=== PATIENT | male | born 1965 | race Caucasian/White ===

== ENCOUNTER 2021-08-11 07:02 | Inpatient (IN) | payer MEDICAID, SELFPAY ==
[2021-08-11] VITALS (7 sets, daily range): BP systolic 97–182; BP diastolic 62–100; PULSE 62–116; RESP 16–22; TEMP 36.4–37.1; O2SAT 95–98; BMI 29.6; BMI 27.6
--- NOTE | 2021-08-11 07:18 | EDS_ITS ---
HPI History of Present Illness Chief Complaint: Substance Abuse Narrative Narrative: 55-year-old male with history of EtOH abuse presenting for detox. He states his last drink within was in the last hour or 2. Patient states he was trying to stop drinking himself but started to get the shakes. He states he can feel his blood pressure was up. He states he does not have hypertension unless he tries it with stop drinking. Patient states he took drank 2 twisted teas prior to coming in. in [place] where he is from. Patient states that his last detox was about a year ago. He has been here for 6 months. Patient admits to drinking about 1/5 to a gallon of vodka daily. He states he is never had a withdrawal seizure but does feel very bad when he does detox. He has been able to detox himself before by weaning off of alcohol. He states he has no other medical problems. No known drug allergies. Past surgical history appendectomy. Patient denies other drug use. PFSH PFSH Medical History Alcohol abuse Anxiety Bipolar disorder Depression H/O appendicitis Hepatitis Osteoarthritis Smoker Medical History no medical history Home Medications NK 08/11/21 [History Last Taken Unknown] Allergy/AdvReac Type Severity Reaction Status Date / Time No Known Allergies Allergy Verified 08/11/21 07:05 Social History Smoking Status: Current every day smoker tobacco type: cigarettes ROS ROS ED Constitutional Constitutional ED: Reports other Details: Feeling shaky ; Denies chills or fever(s) Eyes Eyes: Denies blurry vision or diplopia ENT ENT ED: Denies rhinorrhea or sore throat Cardiovascular Cardiovascular: Denies chest pain or palpitations Respiratory/Chest Respiratory/Chest: Denies cough or dyspnea Gastrointestinal Gastrointestinal: Denies abdominal pain, nausea or vomiting Genitourinary Genitourinary ED: Denies dysuria or urinary frequency Musculoskeletal Musculoskeletal: Denies arthralgias or myalgias Neurologic Neurologic: Denies headache(s) or weakness Psychiatric Psychiatric: Denies suicidal ideation or suicidal thoughts EXAM Physical Exam Const Vital Signs: 08/11/21 07:06 Temperature 97.6 F L Temperature Source Oral Pulse Rate 101 H Respiratory Rate 22 H Blood Pressure 182/100 H Blood Pressure Mean 127 Pulse Ox 98 Oxygen Delivery Method Room Air Positive well nourished General Appearance ED: NAD; Negative for pallor HEENT Reports moist mucous membranes atraumatic Eyes PERRL and EOMs intact bilaterally Resp normal respiratory effort and clear to auscultation bilaterally Cardio regular rate and regular rhythm GI soft to palpation, non-tender and non-distended Neuro oriented x3, CN's II-XII intact bilaterally and no sensory deficits noted Sensorium / Orientation: alert Psych mental status grossly normal and thought process normal Skin General Skin Exam: Negative for jaundice or pallor MDM MDM MDM Narrative Medical decision making narrative: Patient presenting for EtOH detox. He is hypertensive and tachycardic. He states he feels somewhat improved after drinking twisted teas but does want assistance with detox from alcohol. Patient given 2 mg of Ativan IV. And after discussing with the hospitalist I did give 100 mg of phenobarbital IV since he is withdrawing. CBC shows no leukocytosis. Hemoglobin is 17.2. There is no comparison. Platelets are 152. EtOH is 165. Urine drug screen is negative. CMP and lipase are pending on admission. These will be followed on the floor. Patient patient was given a nicotine patch at his request. After Ativan and phenobarbital his blood pressure has come down to 97/85. He does feel better but still feels jittery. Patient transferred in stable condition. Impression: 1 EtOH intoxication 2. EtOH abuse 3. Presentation for EtOH detox Lab Data Attestation: I reviewed the patient's lab results. Discharge Plan Disposition Disposition: Acute Care [facility] Discharge Date/Time: 08/11/21 09:48
[2021-08-11] MEDS: Phenobarbital Sodium 130 MG/ML Vial 100 MG IV (07:42)
[2021-08-11] MEDS: LORazepam 2 MG/ML Syringe IV (07:42)
[2021-08-11 07:51] LABS: Absolute Lymphocyte Count 2.52 X10^3/uL (0.83-4.51); Basophil# 0.06 X10^3/uL; Eosinophil# 0.05 X10^3/uL; Eosinophils% 0.8 % (0-5); Hematocrit 47.2 % (40-54); Hemoglobin 17.2 g/dL (13.0-16.5); Lymphocyte # 2.52 X10^3/ul (0.83-4.51); Lymphocyte % 40.5 % (19-41); Mean Corp Hgb Conc 36.4 g/dL (32-36); Mean Corpuscular Hgb 36.4 pg (27.0-32.0); Mean Platelet Vol. 10.6 fl (6.2-12.0); Monocyte# 0.56 X10^3/uL; NRBC Flagged by Analyzer 0 % (0-5); Neutrophil # 3.01 X10^3/uL (2.7-7.7); Neutrophil % 48.4 % (47-70); Platelet Count 152 K/mm3 (150-450); RBC Distribution Width CV 12.6 % (11.6-14.6); RBC Distribution Width SD 47.2 fl (35.1-43.9); Red Blood Count 4.72 M/mm3 (4.6-6.2); White Blood Count 6.2 K/mm3 (4.4-11.0)
[2021-08-11 08:01] LABS: AST(SGOT) 122 U/L (15-37); Alanine Aminotransfer ALT/SGPT 69 U/L (16-61); Albumin, Serum 3.6 g/dL (3.2-5.0); Alkaline Phosphatase 117 U/L (45-117); Anion Gap 6 (5-15); BUN 5 mg/dL (7-18); BUN/Creat Ratio 5.2 RATIO (10-20); Bilirubin, Direct 0.19 mg/dL (0.00-0.30); Calcium,Total 8.1 mg/dL (8.5-10.1); Chloride 104 mmol/L (98-107); Creatinine, Serum 0.96 mg/dL (0.70-1.30); EST Glomerular Filtration Rate 87 mL/min (>60); Est Glom Filt Rate - Afr Amer 105 mL/min (>60); Estimated Creatinine Clearance 90.83 ml/min; Globulin 4.3 g/dL (2.2-4.2); Glucose 203 mg/dL (74-106); Lipase 33 U/L (73-393); Potassium 4.5 mmol/L (3.5-5.1); Protein, Total 7.9 g/dL (6.4-8.2); Sodium Level 135 mmol/L (136-145)
[2021-08-11 08:08] LABS: Amphetamine Urine VISTA NEGATIVE (<1000 ng/mL); Barbiturate Urine VISTA NEGATIVE (< 200 ng/mL); Benzodiazepine Urine VISTA NEGATIVE (< 200 ng/mL); Cocaine Urine VISTA NEGATIVE (< 300 ng/mL); Ecstacy Urine VISTA NEGATIVE (< 500 ng/mL); Methadone Urine VISTA NEGATIVE (< 300 ng/mL); PCP Urine VISTA NEGATIVE (< 25 ng/mL); THC Urine VISTA NEGATIVE (< 50 ng/mL); Vista UDS pH Range 6
[2021-08-11] MEDS: LORazepam 2 MG/ML Syringe 1 MG IV (09:06)
[2021-08-11] MEDS: Phenobarbital 32.4 MG Tablet 64.8 MG PO ×4 (10:38→22:45)
[2021-08-11] MEDS: Thiamine Hydrochloride 100 MG Tablet PO (10:39)
[2021-08-11] MEDS: hydrOXYzine PAM 25 MG Capsule 50 MG PO ×2 (10:39→17:16)
[2021-08-11] MEDS: Ondansetron 8 MG Tablet PO (10:39)
[2021-08-11] MEDS: Dicyclomine 10 MG Capsule 20 MG PO (10:39)
[2021-08-11] MEDS: Folic Acid 1 MG Tablet PO (10:39)
--- NOTE | 2021-08-11 11:56 | ADDICTION ---
This procedure writer attempted to meet with PT. PT did not rouse to 3x verbal queuing. This worker will attempt to meet with PT at next visit on 08/12.
--- NOTE | 2021-08-11 13:03 | PCM.HP.STD ---
HPI - General General Date of Admission: 08/11/21 Date of Service: 08/11/21 Chief Complaint: Alcohol detox HPI Narrative CORY RODRIGES, is a 55 M who presented to the emergency department [facility] on 08/11/2021 requesting detox from alcohol. He states he did drink some this morning to help with his withdrawal symptoms however he would like to resume sobriety. He started drinking again about 6 months ago. He has had periodic sobriety but has been a long time on and off alcoholic. He is currently employed and recently moved here from [facility]. He reports he drinks approximately 1/5 to a gallon of vodka a day. He states he is currently has a girlfriend who is very supportive. He admits to history of hepatitis C and states he got this from previous IV drug use. He previously used IV heroin and fentanyl. He reports intermittent THC use and is a pack-a-day smoker. In the emergency department he was hypertensive and tachycardic upon presentation but otherwise his vital signs were stable. His CBC showed a erythrocytosis with a hemoglobin of 17.2. The rest of his counts were normal. His CMP was pending upon admission. His urine tox was negative except for an alcohol level of 165. In the emergency department he was given 100 mg of IV phenobarbital and request for admission was made. [facility] Medical History Alcohol abuse Anxiety Bipolar disorder Depression H/O appendicitis Hepatitis History of intravenous drug use in remission Osteoarthritis Smoker Medical History no medical history Home Medications NK 08/11/21 [History Last Taken Unknown] Allergy/AdvReac Type Severity Reaction Status Date / Time No Known Allergies Allergy Verified 08/11/21 07:05 Family History Father Throat cancer Alcoholism and drug addiction in family no surgical history Social History (Updated 08/11/21 @ 13:[address] Shala Ortega DO) current occupational status: employed current occupation: [employer] Work Smoking Status: Current every day smoker tobacco type: cigarettes Smoking packs per day: 1 Smoking cigarettes per day: 20.0 alcohol intake: current alcohol intake frequency: 3 or more drinks per day details: 1/5 to 1 gallon of vodka a day substance use type: marijuana what type of physical activity do you participate in: none ROS Constitutional Constitutional: Reports fatigue and malaise; Denies anorexia, change in weight, chills, fever(s), night sweats, weakness or other Eyes Eyes: Denies blurry vision, change in eye color, change in vision, discharge from eye(s), double vision, erythema, eye pain, loss of vision or other ENT HEENT: Denies abnormal hearing, dysphagia, ear pain, epistaxis, headache(s), hearing loss, nasal congestion, nasal discharge, post nasal drip, sinus pressure, sore throat or other Cardiovascular Cardiovascular: Denies chest pain, claudication, dyspnea on exertion, edema, lightheadedness, orthopnea, palpitations, paroxysmal nocturnal dyspnea, rapid heart rate, syncope or other Respiratory/Chest Respiratory/Chest: Denies cough, dyspnea, excessive phlegm production, hemoptysis, productive cough, shortness of breath at rest, shortness of breath with exertion, wheezing or other Gastrointestinal Gastrointestinal: Reports diarrhea, nausea and vomiting; Denies abdominal pain, coffee ground emesis, constipation, dyspepsia, hematemesis, hematochezia, loose stools, melena or other Genitourinary Genitourinary: Denies burning urination, difficulty urinating, dysuria, hematuria, nocturia, urinary frequency, urinary hesitancy, urinary incontinence, urinary urgency or other Musculoskeletal Musculoskeletal: Reports myalgias; Denies arthralgias, back pain, joint pain, joint stiffness, joint swelling, neck pain or other Neurologic Neurologic: Reports tremor(s); Denies abnormal gait, abnormal speech, confusion, disequilibrium, dizziness, focal weakness, headache(s), numbness, paresthesias, seizure-like activity, seizures, syncope, tingling or other Psychiatric Psychiatric: Reports anxiety; Denies depression, homicidal ideation, suicidal ideation or other Endocrine Endocrinology: Denies change in body appearance, cold intolerance, excessive sweating, heat intolerance, polydipsia, polyuria or other Hematologic/Lymphatic Hematologic/Lymphatic: Denies anemia, easy bleeding, easy bruising, lymphadenopathy or other Allergic/Immunologic Allergic/Immunologic: Denies rhinitis, hives, eczemia, asthma or other Vital Signs Vital Signs Vital Signs: 08/11/21 07:06 08/11/21 09:09 08/11/21 09:36 Temperature 97.6 F L 97.6 F L Temperature Source Oral Oral Pulse Rate 101 H 104 H 104 H Respiratory Rate 22 H 16 16 Blood Pressure 182/100 H 97/85 H 97/85 H Blood Pressure Mean 127 89 89 Blood Pressure Source Blood Pressure Position Blood Pressure Location Pulse Ox 98 98 98 Oxygen Delivery Method Room Air Room Air Room Air 08/11/21 10:10 Temperature 98.2 F Temperature Source Oral Pulse Rate 88 Respiratory Rate 16 Blood Pressure 113/64 Blood Pressure Mean 80 Blood Pressure Source Monitor Blood Pressure Position Semi-Fowlers Blood Pressure Location Left Arm Pulse Ox 98 Oxygen Delivery Method Room Air Weight Weight: 87.453 kg Body Mass Index (BMI) 27.6 Physical Exam Const alert, oriented x3, no apparent distress, healthy appearing and well nourished Constitutional Narrative: Slightly overweight 55-year-old white male, sitting up in bed, nontoxic-appearing, no current signs of overt withdrawal however he has been dosed with phenobarbital General Appearance: cooperative HEENT normocephalic, head/scalp atraumatic, hearing grossly normal bilaterally and moist oral mucous membranes HEENT Narrative: Dentition is fair for age, Mallampati is 2, no thrush Resp normal respiratory effort, no retractions, no use of accessory muscles and clear to auscultation bilaterally Resp Narrative: Diffusely diminished but otherwise clear Auscultation: Negative for crackles, rales, rhonchi or wheezes Cardio regular rhythm, S1 normal heart sound, S2 normal heart sound, no murmurs, no rub, no gallops, no clicks and no JVD Cardio Narrative: Mild tachycardia GI normal to inspection, nondistended, normoactive bowel sounds, soft to palpation, non-tender, non-distended and hepatosplenomegaly Extremity no clubbing, cyanosis or edema Peripheral Pulses: Yes pulses 2+ throughout Neuro oriented x3, CN's II-XII intact bilaterally, moves all extremities and no focal motor deficits Neuro Narrative: Mild fine tremor noted on exam Sensorium / Orientation: awake and alert Speech: speech normal Motor Exam: strength 5/5 throughout Psych affect normal Psych Narrative: Very pleasant Results Lab / Micro Data Result Diagrams: 08/11/21 07:34 08/11/21 07:34 Labs: Laboratory Results - last 24 hr 08/11/21 07:34: WBC 6.2, RBC 4.72, Hgb 17.2 H, Hct 47.2, MCV 100.0 H, MCH 36.4 H, MCHC 36.4 H, RDW Std Deviation 47.2 H, RDW Coeff of Shekhar 12.6, Plt Count 152, MPV 10.6, Immature Gran % (Auto) 0.300, Neut % (Auto) 48.4, Lymph % (Auto) 40.5, [place] % (Auto) 9.0, Eos % (Auto) 0.8, Baso % (Auto) 1.0, Absolute Neuts (auto) 3.0, Absolute Lymphs (auto) 2.52, Nucleated RBC % 0 08/11/21 07:34: Ethyl Alcohol 165.0 08/11/21 07:34: Urine Opiates Screen Cancelled, Urine Methadone Screen Cancelled, Ur Barbiturates Screen Cancelled, Ur Phencyclidine Scrn Cancelled, Ur Amphetamines Screen Cancelled, U Methamphetamin-MDMA Cancelled, U Benzodiazepines Scrn Cancelled, Urine Cocaine Screen Cancelled, U Cannabinoids Screen Cancelled, Ur Drug Screen Comment Cancelled 08/11/21 07:47: Urine Opiates Screen NEGATIVE, Urine Methadone Screen NEGATIVE, Ur Barbiturates Screen NEGATIVE, Ur Phencyclidine Scrn NEGATIVE, Ur Amphetamines Screen NEGATIVE, U Methamphetamin-MDMA NEGATIVE, U Benzodiazepines Scrn NEGATIVE, Urine Cocaine Screen NEGATIVE, U Cannabinoids Screen NEGATIVE, Ur Drug Screen Comment Assessment & Plan Assessment/Plan (1) Alcohol withdrawal: (2) Erythrocytosis: PLAN: Acute alcohol withdrawal -Patient drinks 1/5 1 gallon of vodka daily -Last drink was a few hours before presentation -Alcohol on admission was 165 -Start phenobarbital taper -Start thiamine and folate -Supportive medications for symptom management -180 consultation Erythrocytosis -Suspect multifactorial with chronic tobacco abuse plus likely some dehydration -No reason to reevaluate History of hepatitis C -Resulted from IV drug use -Would like to be treated once he is sober -I did discuss with him a referral to Dr. Mendieta after discharge and he was amenable to this Tobacco abuse -Currently smokes approximately 1 pack of cigarettes daily -Continue patch available -Recommend cessation History of polysubstance abuse -IVDU with fentanyl and heroin remotely -Patient has not used since the early 1999 Intermittent THC use -Recommend cessation DVT prophylaxis -Low risk -Early ambulation CODE STATUS -Full code Charges/Coding Visit Charges Inpatient E&M: 93956 Init Hosp L2
[2021-08-11] MEDS: Gabapentin 300 MG Capsule PO (14:59)
[2021-08-11] MEDS: LORazepam 1 MG Tablet 2 MG PO (18:26)
[2021-08-12] MEDS: Phenobarbital 32.4 MG Tablet 64.8 MG PO ×6 (02:19→22:45)
[2021-08-12 04:43] VITALS: BP 112/86; PULSE 82; RESP 16; TEMP 36.6; O2SAT 99
[2021-08-12 05:33] LABS: Absolute Lymphocyte Count 2.26 X10^3/uL (0.83-4.51); Absolute Neutrophil Count 1.7 X10^3/uL (2.0-7.7); Basophil# 0.05 X10^3/uL; Eosinophil# 0.25 X10^3/uL; Eosinophils% 5.1 % (0-5); Hematocrit 43.6 % (40-54); Hemoglobin 15.4 g/dL (13.0-16.5); Lymphocyte # 2.26 X10^3/ul (0.83-4.51); Lymphocyte % 46.5 % (19-41); Mean Corp Hgb Conc 35.3 g/dL (32-36); Mean Corpuscular Hgb 34.9 pg (27.0-32.0); Mean Corpuscular Volume 98.9 fL (80-94); Mean Platelet Vol. 10.9 fl (6.2-12.0); Monocyte# 0.63 X10^3/uL; NRBC Flagged by Analyzer 0 % (0-5); Neutrophil # 1.66 X10^3/uL (2.7-7.7); Neutrophil % 34.2 % (47-70); Platelet Count 117 K/mm3 (150-450); RBC Distribution Width CV 12.3 % (11.6-14.6); RBC Distribution Width SD 44.9 fl (35.1-43.9); Red Blood Count 4.41 M/mm3 (4.6-6.2); White Blood Count 4.9 K/mm3 (4.4-11.0)
[2021-08-12 05:58] LABS: ALB/GLOB Ratio 0.8 RATIO (0.9-2.4); AST(SGOT) 71 U/L (15-37); Alanine Aminotransfer ALT/SGPT 53 U/L (16-61); Alkaline Phosphatase 108 U/L (45-117); Anion Gap 3 (5-15); BUN 9 mg/dL (7-18); BUN/Creat Ratio 10.6 RATIO (10-20); Calcium,Total 8.1 mg/dL (8.5-10.1); Chloride 105 mmol/L (98-107); Creatinine, Serum 0.85 mg/dL (0.70-1.30); EST Glomerular Filtration Rate 100 mL/min (>60); Est Glom Filt Rate - Afr Amer 121 mL/min (>60); Estimated Creatinine Clearance 102.58 ml/min; Globulin 3.9 g/dL (2.2-4.2); Glucose 100 mg/dL (74-106); Potassium 3.8 mmol/L (3.5-5.1); Protein, Total 6.9 g/dL (6.4-8.2); Sodium Level 137 mmol/L (136-145)
[2021-08-12 10:00] VITALS: BP 132/80; PULSE 80; RESP 20; TEMP 36.8
[2021-08-12] MEDS: Thiamine Hydrochloride 100 MG Tablet PO (10:31)
[2021-08-12] MEDS: Folic Acid 1 MG Tablet PO (10:31)
[2021-08-12 10:47] VITALS: BP 132/80; PULSE 80; RESP 20; TEMP 36.8; O2SAT 98
--- NOTE | 2021-08-12 12:01 | PN.HOSP_ITS ---
Subjective Subjective Feels better today. He is concerned about his hospitalization and returning to work. States he does not have any insurance. Objective Data Objective Data Vital Signs: Vital Signs Temp Pulse Resp BP Pulse Ox 36.8 C 80 20 H 132/80 H 98 08/12/21 10:47 08/12/21 10:47 08/12/21 10:47 08/12/21 10:47 08/12/21 10:47 Oxygen Delivery Method Room Air Weight: 87.453 kg Body Mass Index (BMI) 27.6 Intake & Output: Intake and Output for Last 24 Hours 08/10/21 08/11/21 08/12/21 23:59 23:59 23:59 Intake Total 850 / 1150 500 / 500 Balance 850 / 1150 500 / 500 Medical Nutrition Assessment Dietitian: Malnutrition Criteria Met Start: 08/11/21 15:34 Freq: Status: Active Protocol: Document 08/11/21 15:34 ALLEN (Rec: 08/11/21 15:34 ALLEN [id number]) Nutrition Malnutrition Evidence of Malnutrition Exists Yes Malnutrition (severe): Social/Behavioral/ Environmental Evidenced By Suboptimal Energy Intake ( Severe),Weight Loss (Severe) Clinical Problem Chronic Disease or Condition Related Malnutrition Etiology related to alcohol abuse and tends to drink my meals whereby pt not consuming adequate nutrition to meet est needs Signs/Symptoms as evidenced by <50% po intake of meals (drinking alcohol instead) x 3 mo and 12.6% wt loss x 6 mo Status Active Problem Recommendation Dietitian Recommendations/Changes Will continue regular diet Will continue ensure enlive w/ medpass 4x/day Lab / Micro Data Result Diagrams: 08/12/21 05:12 08/12/21 05:12 Labs: Laboratory Results - last 24 hr 08/12/21 05:12: WBC 4.9, RBC 4.41 L, Hgb 15.4, Hct 43.6, MCV 98.9 H, MCH 34.9 H, MCHC 35.3, RDW Std Deviation 44.9 H, RDW Coeff of Shekhar 12.3, Plt Count 117 L, MPV 10.9, Immature Gran % (Auto) 0.200, Neut % (Auto) 34.2 L, Lymph % (Auto) 46.5 H, [place] % (Auto) 13.0 H, Eos % (Auto) 5.1 H, Baso % (Auto) 1.0, Absolute Neuts (auto) 1.7 L, Absolute Lymphs (auto) 2.26, Nucleated RBC % 0 08/12/21 05:12: Sodium 137, Potassium 3.8, Chloride 105, Carbon Dioxide 29.0, Anion Gap 3 L, BUN 9, Creatinine 0.85, Estim Creat Clear Calc 102.58, Est GFR (MDRD) Af Amer 121, Est GFR (MDRD) Non-Af 100, BUN/Creatinine Ratio 10.6, Glucose 100, Calcium 8.1 L, Phosphorus 2.0 L, Magnesium 2.0, Total Bilirubin 1.30 H, AST 71 H, ALT 53, Alkaline Phosphatase 108, Total Protein 6.9, Albumin 3.0 L, Globulin 3.9, Albumin/Globulin Ratio 0.8 L Physical Exam Const alert and no apparent distress Psych affect normal Assessment & Plan Assessment/Plan (1) Alcohol withdrawal: QUALIFIERS: Complication of substance-induced condition: uncomplicated Qualified Code(s): F10.230 - Alcohol dependence with withdrawal, uncomplicated PLAN: 1. Acute alcohol withdrawal Patient drinks 1/5 of liquor per day. Subjective feels better still states that he has a bit of a tremor. Had conversation with him that the purpose of him being in the hospital is to get over the acute alcohol withdrawal so that he can follow-up outpatient with 180. I encouraged him to stay another day but told him that he does appear stable now and that it would be reasonable for him to be discharged but I could not guarantee that he would not have issues with alcohol withdrawal upon discharge. We both agreed to reevaluate this tomorrow and if he is continue to feel better than he would be discharged. He states that he would need some for work and I told him that which is basically include dates of his admission and when he could return home to work with him providing additional details. Charges/Coding Visit Charges Inpatient E&M: 77497 Subs Hosp L1
[2021-08-12] MEDS: hydrOXYzine PAM 25 MG Capsule 50 MG PO (13:33)
--- NOTE | 2021-08-12 14:29 | ADDICTION ---
This technical report writer met with PT to conduct ASAM, MSE, AUDIT assessments and to plan for d/c. PT A+Ox4 and participated actively. All assessments completed and placed in PT's chart. PT plans to f/u with individual counselor at [facility] for follow-up counseling services. PT did not indicate a need for transportation post d/c from [facility].
[2021-08-12 14:41] VITALS: BP 130/82; PULSE 88; RESP 16; TEMP 36.5; O2SAT 97
[2021-08-12] MEDS: traZODone 100 MG Tablet PO (19:46)
[2021-08-12 22:41] VITALS: BP 101/73; PULSE 73; RESP 16; TEMP 36.6; O2SAT 94
[2021-08-13] MEDS: Phenobarbital 32.4 MG Tablet 64.8 MG PO ×2 (03:09→10:04)
[2021-08-13 08:26] VITALS: BP 133/81; PULSE 72; RESP 16; TEMP 36.6; O2SAT 98
[2021-08-13] MEDS: Thiamine Hydrochloride 100 MG Tablet PO (08:37)
[2021-08-13] MEDS: Folic Acid 1 MG Tablet PO (08:37)
--- NOTE | 2021-08-13 09:09 | PCM.DC ---
Discharge Instructions Diet Discharge Diet: No restrictions Activity Discharge Activity: Return to Normal Activity Follow Up Care Please Follow Up With: Lee When: Call to set up follow up appointment. Test Results: Test results from this visit will be discussed in further detail at your follow-up appointment, if applicable. Discharge Plan Admission Admit Date/Time: 08/11/21 07:26 Primary Reason for Your Visit: alcohol withdrawal Attending Provider: Bryan Da Silva Primary Care Provider: Care Physician,Cha Primary Discharge Orders/Prescriptions Prescriptions: New multivitamin Tablet 1 tab PO DAILY Qty: 30 RF: 0 Referrals / Follow Up: Care Physician,No Primary [Primary Care Provider] - Disposition Disposition (needs filled in before D/C Order can be placed): Home, Self Care
--- NOTE | 2021-08-13 09:10 | PCM.DC.SUM ---
Providers Date of Admission: 08/11/21 Primary Care Physician: No Primary Care Phys Reason For Visit: ACUTE ETOH WITHDRAWAL/DETOX Diagnosis Discharge Diagnosis (1) Alcohol withdrawal: Status: Acute Code(s): F10.239 - Alcohol dependence with withdrawal, unspecified Qualifiers: Complication of substance-induced condition: uncomplicated Qualified Code(s): F10.230 - Alcohol dependence with withdrawal, uncomplicated Medications at Discharge Home Medications multivitamin 1 tab PO DAILY #30 tab 08/13/21 Hospital Course Operations None Procedures None Summary of Care Provided Minutes Spent on Discharge: 24 Hospital Course: This is a 55-year-old male presenting for treatment for acute alcohol withdrawal. Patient was started on phenobarbital. His course was uncomplicated. Patient on the fifth was overall feeling better but still having some tremulousness. He was concerned because he does not have any medical insurance. Had a lengthy conversation with him saying that we could watch him another day which I encouraged to work he could be discharged though I told him that I would not know how he would fair if he were to be discharged. So we both agree that he would stay today. Patient evaluated today and is overall feeling better and he will be discharged. Patient given information to contact [facility] to help with his outpatient addiction treatment. Physical Exam Const alert and no apparent distress Psych affect normal Medical Records Data Medical Nutrition Assessment Dietitian: Malnutrition Criteria Met Start: 08/11/21 15:34 Freq: Status: Active Protocol: Document 08/11/21 15:34 ALLEN (Rec: 08/11/21 15:34 ALLEN [id number]) Nutrition Malnutrition Evidence of Malnutrition Exists Yes Malnutrition (severe): Social/Behavioral/ Environmental Evidenced By Suboptimal Energy Intake ( Severe),Weight Loss (Severe) Clinical Problem Chronic Disease or Condition Related Malnutrition Etiology related to alcohol abuse and tends to drink my meals whereby pt not consuming adequate nutrition to meet est needs Signs/Symptoms as evidenced by <50% po intake of meals (drinking alcohol instead) x 3 mo and 12.6% wt loss x 6 mo Status Active Problem Recommendation Dietitian Recommendations/Changes Will continue regular diet Will continue ensure enlive w/ medpass 4x/day Weight / BMI Weight Weight: 87.453 kg Body Mass Index (BMI) 27.6 ABG / Lab / Microbiology Data Result Diagrams: 08/12/21 05:12 08/12/21 05:12 D/C Instructions Discharge Diet: No restrictions Please Follow Up With: Lee When: Call to set up follow up appointment. Meaningful Use Info Meaningful Use Diagnoses (Choose all that apply): None applicable Discharge Plan Admission Admit Date/Time: 08/11/21 07:26 Primary Reason for Your Visit: alcohol withdrawal Attending Provider: Bryan Da Silva Primary Care Provider: Care Physician,No Primary Discharge Orders/Prescriptions Prescriptions: New multivitamin Tablet 1 tab PO DAILY Qty: 30 RF: 0 Referrals / Follow Up: Care Physician,No Primary [Primary Care Provider] - Disposition Disposition (needs filled in before D/C Order can be placed): Home, Self Care Charges/Coding Visit Charges Inpatient E&M: 34737 Disch Hosp
== END 2021-08-13 10:55 | disposition home or self-care (01) | DRG 897 ==
LOC: ED 07:23 → MS3 09:20
PROVIDERS: Admitting Provider Internal Medicine; Emergency Provider Student in an Organized Health Care Education/Training Program
DX: F10.230 Alcohol dependence with withdrawal, uncomplicated (principal); E44.1 Mild protein-calorie malnutrition; F12.99 Cannabis use, unspecified with unspecified cannabis-induced disorder; B19.20 Unspecified viral hepatitis C without hepatic coma; D75.1 Secondary polycythemia; F17.210 Nicotine dependence, cigarettes, uncomplicated; E66.3 Overweight; Y90.6 Blood alcohol level of 120-199 mg/100 ml; Z68.27 Body mass index [BMI] 27.0-27.9, adult; Z81.1 Family history of alcohol abuse and dependence
CPT/HCPCS: 36415; 80048; 80053; 80076; 80307; 82077; 83690; 83735; 84100; 85025; 97802; 99251; 99283; 99406; A4216; G0463

== ENCOUNTER 2021-09-05 05:45 | Inpatient (IN) | payer MEDICAID, SELFPAY ==
[2021-09-05] VITALS (7 sets, daily range): BP systolic 118–148; BP diastolic 74–99; PULSE 63–92; RESP 16–19; TEMP 36.6–37.2; O2SAT 96–100; BMI 30.3; BMI 28.3
--- NOTE | 2021-09-05 05:57 | EX.ED.SAOD ---
HPI History of Present Illness Chief Complaint: Substance Abuse Detail of Chief Complaint: Requesting detox from alcohol Informant: patient Narrative Narrative: Patient presents requesting alcohol detox. Patient was admitted to the hospital earlier this month for similar. He states he did not contact [facility] when he left the hospital because he felt they wanted him to do inpatient treatment and he was concerned about losing his job. He states he started drinking after couple days. He does currently have an appointment to meet with [facility] this coming Saturday. They recommended coming back in for acute detox. Patient drinks 5th-1/2 gallon of vodka a day. Last drink was on his way to the hospital. Patient states he was trying to drink to stop the shakes. PFSH PFS Medical History Alcohol abuse Anxiety Bipolar disorder Depression H/O appendicitis Hepatitis History of intravenous drug use in remission Osteoarthritis Smoker Home Medications NK 09/05/21 [History Last Taken Unknown] Allergy/AdvReac Type Severity Reaction Status Date / Time No Known Allergies Allergy Verified 09/05/21 05:49 Family History Father Throat cancer Alcoholism and drug addiction in family Social History current occupational status: employed current occupation: Factory Work Smoking Status: Current every day smoker tobacco type: cigarettes alcohol intake: current alcohol intake frequency: 3 or more drinks per day details: 1/5 to 1 gallon of vodka a day substance use type: marijuana what type of physical activity do you participate in: none ROS ROS ED Constitutional Constitutional ED: Denies chills or fever(s) Eyes Eyes: Denies blurry vision or change in vision ENT ENT ED: Denies rhinorrhea or sore throat Cardiovascular Cardiovascular: Denies chest pain Respiratory/Chest Respiratory/Chest: Denies cough or dyspnea Gastrointestinal Gastrointestinal: Denies abdominal pain, diarrhea or vomiting Integumentary Denies rash Neurologic Neurologic: Denies paresthesias or weakness Psychiatric Psychiatric: Reports anxiety Allergic/Immunologic Allergic/Immunologic ED: Denies urticaria EXAM Physical Exam Const Vital Signs: 09/05/21 05:46 Temperature 98.9 F Temperature Source Oral Pulse Rate 91 Respiratory Rate 17 Blood Pressure 148/99 H Blood Pressure Mean 115 Pulse Ox 99 Oxygen Delivery Method Room Air Positive well nourished and well developed General Appearance ED: well developed HEENT Reports moist mucous membranes Eyes PERRL and EOMs intact bilaterally Neck supple Chest Wall inspection of chest normal and palpation of chest normal Resp normal respiratory effort and clear to auscultation bilaterally Cardio regular rate and regular rhythm GI soft to palpation and non-tender Neuro oriented x3 and no sensory deficits noted Sensorium / Orientation: alert Motor Exam: strength 5/5 throughout Psych mental status grossly normal Skin Lesions: no lesions Rashes: no rashes MDM MDM MDM Narrative Medical decision making narrative: Lab work for as he feels that he is shaky and did well with this on his last admission. I spoke with the hospitalist will see the patient for admission. Lab Data Labs: Laboratory Results - last 24 hr 09/05/21 06:00 WBC 6.6 RBC 4.67 Hgb 17.0 H Hct 47.3 MCV 101.3 H MCH 36.4 H MCHC 35.9 RDW Std Deviation 48.1 H RDW Coeff of Shekhar 12.8 Plt Count 168 MPV 10.0 Immature Gran % (Auto) 0.300 Neut % (Auto) 32.6 L Lymph % (Auto) 53.8 H [place] % (Auto) 9.0 Eos % (Auto) 3.2 Baso % (Auto) 1.1 H Absolute Neuts (auto) 2.1 Absolute Lymphs (auto) 3.53 Nucleated RBC % 0 Discharge Plan Triage Chief Complaint: Substance Abuse ED Provider: Monique Cruz Dx/Rx/DC Orders Clinical Impression: Desire for detoxification, Alcohol abuse Prescriptions: No Action NK RF: 0 Primary Care Provider: Care Physician,No Primary Referrals: Care Physician,No Primary [Primary Care Provider] - Disposition Disposition: Acute Care Hospital [facility]
[2021-09-05 06:05] LABS: Absolute Lymphocyte Count 3.53 X10^3/uL (0.83-4.51); Absolute Neutrophil Count 2.1 X10^3/uL (2.0-7.7); Basophil# 0.07 X10^3/uL; Basophil% 1.1 % (0-1); Eosinophil# 0.21 X10^3/uL; Eosinophils% 3.2 % (0-5); Hematocrit 47.3 % (40-54); Lymphocyte # 3.53 X10^3/ul (0.83-4.51); Lymphocyte % 53.8 % (19-41); Mean Corp Hgb Conc 35.9 g/dL (32-36); Mean Corpuscular Hgb 36.4 pg (27.0-32.0); Mean Corpuscular Volume 101.3 fL (80-94); Monocyte# 0.59 X10^3/uL; NRBC Flagged by Analyzer 0 % (0-5); Neutrophil # 2.14 X10^3/uL (2.7-7.7); Neutrophil % 32.6 % (47-70); Platelet Count 168 K/mm3 (150-450); RBC Distribution Width CV 12.8 % (11.6-14.6); RBC Distribution Width SD 48.1 fl (35.1-43.9); Red Blood Count 4.67 M/mm3 (4.6-6.2); White Blood Count 6.6 K/mm3 (4.4-11.0)
--- NOTE | 2021-09-05 06:09 | HP.PCM.HOS_ITS ---
HPI - General General Date of Admission: 09/05/21 HPI Narrative CORY RODRIGES, is a 55 M with a significant history of bipolar disorder hepatitis C; and alcoholism who presents to emergency department for alcohol detoxification. Patient drinks about a fifth to a half a gallon of vodka daily. He reported he has been drinking almost all his life. To prevent tremors last time he drank was about 20-day before presentation. At that time he drank a can of twisted tea. He reports withdrawal symptoms of tremors and nausea. Of note patient was discharged from the hospital on 08/13/2021 for acute detoxification. He was supposed to go for inpatient treatment after discharge. However, because of financial issues he could not go. He report that prior to coming in on this presentation (09/05/2021) he contacted [facility] and he has a follow-up appointment (with [facility]) at 1 PM on Saturday, September 08, 2021. This time around he is hoping to go to inpatient alcohol rehabilitation program after discharge. PFS Medical History Alcohol abuse Anxiety Bipolar disorder Depression H/O appendicitis Hepatitis History of intravenous drug use in remission Osteoarthritis Smoker Home Medications NK 09/05/21 [History Last Taken Unknown] Allergy/AdvReac Type Severity Reaction Status Date / Time No Known Allergies Allergy Verified 09/05/21 05:49 Family History Father Throat cancer Alcoholism and drug addiction in family Social History current occupational status: employed current occupation: Factory Work Smoking Status: Current every day smoker tobacco type: cigarettes alcohol intake: current alcohol intake frequency: 3 or more drinks per day details: 1/5 to 1 gallon of vodka a day substance use type: marijuana what type of physical activity do you participate in: none ROS ROS Narrative Constitutional: Denies fever, chills, fatigue, anorexia and change in weight Eyes: Denies blurry vision, change in eye color, change in vision, discharge from eye(s), double vision, erythema, eye pain, loss of vision or other HEENT: Denies abnormal hearing, dysphagia, ear pain, epistaxis, headache(s), hearing loss, nasal congestion, nasal discharge, post nasal drip, sinus pressure, sore throat or other Cardiovascular: Denies chest pain or palpitations. Denies dyspnea on exertion, orthopnea and paroxysmal nocturnal dyspnea Respiratory/Chest: Denies cough, excessive phlegm production, shortness of breath with exertion and wheezing Gastrointestinal: Reports nausea. Denies abdominal pain, coffee ground emesis, constipation, diarrhea, dyspepsia, hematemesis, hematochezia, loose stools, melena, or other Genitourinary: Denies burning urination, difficulty urinating, dysuria, hematuria, nocturia, urinary frequency, urinary hesitancy, urinary incontinence, urinary urgency or other Musculoskeletal: Denies arthralgias, back pain, joint pain, joint stiffness, joint swelling, myalgias, neck pain or other Neurologic: Report tremors. Denies abnormal gait, abnormal speech, confusion, d isequilibrium, dizziness, focal weakness, headache(s), numbness, paresthesias, seizure-like activity, seizures, syncope, tingling, or other Psychiatric: Denies anxiety, depression, homicidal ideation, suicidal ideation or other Endocrinology: Denies change in body appearance, cold intolerance, excessive sweating, heat intolerance, polydipsia, polyuria or other Hematologic/Lymphatic: Denies anemia, easy bleeding, easy bruising, lymphadenopathy or other Integumentary: Denies rashes Allergic/Immunologic: Denies rhinitis, hives, eczema, or other Vital Signs Vital Signs Vital Signs: 09/05/21 05:46 Temperature 98.9 F Temperature Source Oral Pulse Rate 91 Respiratory Rate 17 Blood Pressure 148/99 H Blood Pressure Mean 115 Pulse Ox 99 Oxygen Delivery Method Room Air Weight Weight: 95.9 kg Body Mass Index (BMI) 30.3 Physical Exam Narrative Physical exam: General: Well-nourished, well-developed. Head: Normocephalic, atraumatic, no tenderness Eyes: Vision is grossly intact. EOMI ENT, no trauma, moist mucous membranes, no rhinorrhea Neck: Nontender, full range of motion, no spinal tenderness, deformities, step- off CVS: Regular rate and rhythm. S1-S2 present. No murmur, gallop or rub. Respiratory : clear to auscultation bilaterally, chest wall nontender, no wheezing Abdomen: Soft, nontender, nondistended, normal bowel sounds, no masses : Deferred Back: Nontender, no CVA tenderness, no midline spinal tenderness, deformities, step-offs Extremities: Nontender full range of motion, no trauma Skin: Normal color, no trauma, abrasions Neuro: Alert, oriented, cranial nerves II through XII grossly intact. Asterixis present Psychiatry: Normal mood. Normal affect. Not depressed. Not anxious. Results Lab / Micro Data Result Diagrams: 09/05/21 06:00 09/05/21 06:00 Labs: Laboratory Results - last 24 hr 09/05/21 06:00: WBC 6.6, RBC 4.67, Hgb 17.0 H, Hct 47.3, MCV 101.3 H, MCH 36.4 H , MCHC 35.9, RDW Std Deviation 48.1 H, RDW Coeff of Shekhar 12.8, Plt Count 168, MPV 10.0, Immature Gran % (Auto) 0.300, Neut % (Auto) 32.6 L, Lymph % (Auto) 53.8 H, [place] % (Auto) 9.0, Eos % (Auto) 3.2, Baso % (Auto) 1.1 H, Absolute Neuts (auto) 2.1, Absolute Lymphs (auto) 3.53, Nucleated RBC % 0 Assessment & Plan Assessment/Plan (1) Desire for detoxification: (2) Tobacco abuse: (3) Cannabis abuse: PLAN: Alcohol dependence and desire for detoxification Records reviewed from previous admission: Patient was admitted on 08/11/2021 and discharged on 08/13/2021. Patient did well on phenobarbital taper Patient will be started on phenobarbital and other adjunctive medications: Gabapentin as needed; dicyclomine as needed; Vistaril as needed; Imodium as needed; trazodone as needed; Zofran as needed; scheduled thiamine; and schedule folic acid. Monitor CIWA score Elevated blood pressure diagnosis of hypertension. Likely secondary to withdrawal symptoms. Supportive treatment as above. Trend blood pressures. Leukocytosis Hemoglobin of 17.0. Likely secondary to tobacco abuse. No further work-up needed. Tobacco abuse Counseled Nicotine patch prescribed. Marijuana abuse Last time used was about a month ago. Counseled. DVT prophylaxis Low risk Encourage to ambulate Charges/Coding Visit Charges Inpatient E&M: 67554 Init Hosp L2
[2021-09-05 06:21] LABS: ALB/GLOB Ratio 0.8 RATIO (0.9-2.4); AST(SGOT) 95 U/L (15-37); Alanine Aminotransfer ALT/SGPT 67 U/L (16-61); Albumin, Serum 3.4 g/dL (3.2-5.0); Alkaline Phosphatase 95 U/L (45-117); Anion Gap 7 (5-15); BUN 4 mg/dL (7-18); BUN/Creat Ratio 4.4 RATIO (10-20); Calcium,Total 8.1 mg/dL (8.5-10.1); Chloride 107 mmol/L (98-107); Creatinine, Serum 0.92 mg/dL (0.70-1.30); EST Glomerular Filtration Rate 91 mL/min (>60); Est Glom Filt Rate - Afr Amer 111 mL/min (>60); Estimated Creatinine Clearance 94.78 ml/min; Glucose 166 mg/dL (74-106); Potassium 3.9 mmol/L (3.5-5.1); Protein, Total 7.4 g/dL (6.4-8.2); Sodium Level 140 mmol/L (136-145)
[2021-09-05] MEDS: Phenobarbital 32.4 MG Tablet 97.2 MG PO (06:36)
[2021-09-05 06:41] LABS: Amphetamine Urine VISTA NEGATIVE (<1000 ng/mL); Barbiturate Urine VISTA POSITIVE (< 200 ng/mL); Benzodiazepine Urine VISTA NEGATIVE (< 200 ng/mL); Cocaine Urine VISTA NEGATIVE (< 300 ng/mL); Ecstacy Urine VISTA NEGATIVE (< 500 ng/mL); Methadone Urine VISTA NEGATIVE (< 300 ng/mL); PCP Urine VISTA NEGATIVE (< 25 ng/mL); THC Urine VISTA NEGATIVE (< 50 ng/mL); Vista UDS pH Range 7
[2021-09-05] MEDS: Phenobarbital 32.4 MG Tablet 64.8 MG PO ×4 (08:05→20:10)
[2021-09-05] MEDS: Folic Acid 1 MG Tablet PO (08:05)
[2021-09-05] MEDS: 0.9% Saline Lock 10 ML Syringe IV (08:06)
[2021-09-05] MEDS: Thiamine Hydrochloride 100 MG Tablet PO (09:31)
[2021-09-05] MEDS: Ondansetron 8 MG Tablet PO ×2 (11:46→20:10)
[2021-09-05] MEDS: Dicyclomine 10 MG Capsule 20 MG PO (13:06)
--- NOTE | 2021-09-05 14:04 | PCM.HOSP.N ---
Hospitalist Note Mr. Weir is a 55-year-old male who presented to the emergency department early this morning requesting alcohol detox. Upon admission he reported drinking 1/5 to half a gallon of vodka a day. He did have a recent admission for acute detoxification was supposed to go to inpatient treatment following discharge but was unable to go secondary to financial issues. He reported on admission that prior to coming in at this admission he had contacted [facility] and arrange for a follow-up appointment at 1 PM on September 08. He is hoping to be able to be admitted to an inpatient alcohol rehabilitation after discharge at some point. He does have a history of bipolar disorder and hepatitis C. He is currently on phenobarbital taper along with supportive medications and remained stable at this time.
--- NOTE | 2021-09-05 17:14 | NURSING ---
Pt gave permission for staff to update and provide information to his gege Olivo.
[2021-09-05] MEDS: traZODone 100 MG Tablet PO (21:23)
[2021-09-06] VITALS: BP 124/79; PULSE 70; RESP 18; TEMP 36.6; O2SAT 96
[2021-09-06] MEDS: Phenobarbital 32.4 MG Tablet 64.8 MG PO ×7 (00:06→23:42)
[2021-09-06 04:00] VITALS: BP 125/74; PULSE 68; RESP 18; TEMP 36.6; O2SAT 94
[2021-09-06 08:00] VITALS: BP 98/86; PULSE 76; RESP 18; TEMP 36.6; O2SAT 98
[2021-09-06] MEDS: Folic Acid 1 MG Tablet PO (08:08)
[2021-09-06] MEDS: Thiamine Hydrochloride 100 MG Tablet PO (08:08)
[2021-09-06 13:40] VITALS: BP 111/64; PULSE 77; RESP 18; TEMP 37; O2SAT 97
--- NOTE | 2021-09-06 13:53 | PCM.PN.HOSP ---
Subjective Subjective Patient states he is feeling much better today. His symptoms of withdrawal have improved dramatically. He is still reporting some nausea and diarrhea. He would like to try to go tomorrow if possible. I did tell him we would reevaluate his symptoms tomorrow and make more decisions at that time. He is agreeable. Objective Data Objective Data Vital Signs: Vital Signs Temp Pulse Resp BP Pulse Ox 98.6 F 77 18 111/64 97 09/06/21 13:40 09/06/21 13:40 09/06/21 13:40 09/06/21 13:40 09/06/21 13:40 Oxygen Flow Rate (L/min) 98 Oxygen Delivery Method Room Air Weight: 89.6 kg Body Mass Index (BMI) 28.3 Intake & Output: Intake and Output for Last 24 Hours 09/04/21 09/05/21 09/06/21 23:59 23:59 23:59 Intake Total 1300 / 1300 600 / 600 Balance 1300 / 1300 600 / 600 Lab / Micro Data Result Diagrams: 09/05/21 06:00 09/05/21 06:00 Physical Exam Const alert, oriented x3 and no apparent distress Constitutional Narrative: Overweight upper middle-aged white male who appears older than stated age, lying in bed, appears comfortable nontoxic, room is dark Exam Limitations: no limitations Nutritional Appearance: overweight HEENT head/scalp atraumatic and moist oral mucous membranes HEENT Narrative: Dentition is poor, Mallampati is 2, no thrush Head and Scalp: normocephalic Resp normal respiratory effort, no retractions, no use of accessory muscles and clear to auscultation bilaterally Resp Narrative: Diffusely diminished but clear Auscultation: Negative for crackles, rales, rhonchi or wheezes Cardio regular rate, regular rhythm, S1 normal heart sound, S2 normal heart sound, no murmurs, no rub, no gallops, no clicks and no JVD GI normal to inspection, nondistended, normoactive bowel sounds, soft to palpation, non-tender and non-distended Extremity no clubbing, cyanosis or edema Peripheral Pulses: Yes pulses 2+ throughout Neuro oriented x3, moves all extremities and no focal motor deficits Sensorium / Orientation: awake and alert Speech: speech normal Assessment & Plan Assessment/Plan (1) Alcohol abuse: (2) Alcohol withdrawal: (3) Desire for detoxification: PLAN: Acute alcohol withdrawal -Patient with recent detox in early August however secondary to financial issues could not get in the inpatient program and started drinking again -Drinks about 1/5 to a gallon of vodka a day -Indicates has been drinking almost all of his life -Tox screen positive for alcohol with a blood alcohol level of 209.0 and barbiturates which is consistent with his most recent detox admission -Continue phenobarbital taper -Continue thiamine and folate -Continue supportive medications -Patient clinically is improved dramatically and is hoping to be discharged tomorrow -Patient has follow-up at [facility] at 1 PM on Wednesday, September 08, 2021 at which time he is planning to be able to be admitted into an inpatient alcohol rehabilitation program History of hepatitis C -Resulted from IV drug use -Would like to be treated once he is sober -I did discuss with him a referral to Dr. Mendieta after discharge and he was amenable to this Tobacco abuse -Currently smokes approximately 1 pack of cigarettes daily -Continue patch available -Recommend cessation History of polysubstance abuse -IVDU with fentanyl and heroin remotely -Patient has not used since the early 1999 Intermittent THC use -Recommend cessation -Last use was reported approximately 1 month ago DVT prophylaxis -Low risk -Early ambulation CODE STATUS -Full code Charges/Coding Visit Charges Inpatient E&M: 24377 Subs Hosp L2
--- NOTE | 2021-09-06 14:03 | CASEMGMT ---
PAULINO called Ananda [facility] hvac specialist to make sure she was aware of patient. Ananda was not aware of patient and will see him tomorrow am. Alicia Curiel [employer] [facility]
--- NOTE | 2021-09-06 18:46 | NURSING ---
Reviewed charting with Sarbjit Beck RN
[2021-09-06 20:00] VITALS: BP 123/71; PULSE 75; RESP 16; TEMP 36.7; O2SAT 98
[2021-09-06] MEDS: traZODone 100 MG Tablet PO (21:31)
[2021-09-06 23:40] VITALS: BP 106/67; PULSE 64; RESP 18; TEMP 36.4; O2SAT 96
[2021-09-07] MEDS: Phenobarbital 32.4 MG Tablet 64.8 MG PO ×3 (03:27→11:13)
[2021-09-07 03:42] VITALS: BP 101/69; PULSE 71; RESP 16; TEMP 36.6; O2SAT 97
[2021-09-07 07:54] VITALS: BP 100/77; PULSE 80; RESP 18; TEMP 36.6; O2SAT 97
[2021-09-07] MEDS: Folic Acid 1 MG Tablet PO (07:59)
[2021-09-07] MEDS: Thiamine Hydrochloride 100 MG Tablet PO (07:59)
--- NOTE | 2021-09-07 10:14 | PCM.DC.SUM ---
Providers Date of Admission: 09/05/21 Date of Discharge: 09/07/21 Primary Care Physician: No Primary Care Phys Reason For Visit: DESIRE FOR ALCOHOL DETOXIFICATION Diagnosis Discharge Diagnosis (1) Alcohol abuse: Status: Acute Code(s): F10.10 - Alcohol abuse, uncomplicated (2) Alcohol withdrawal: Status: Acute Code(s): F10.239 - Alcohol dependence with withdrawal, unspecified (3) Desire for detoxification: Status: Acute Medications at Discharge Home Medications NK 09/05/21 Hospital Course Operations None Procedures None Summary of Care Provided Minutes Spent on Discharge: 25 Hospital Course: Mr. Weir is a 55-year-old male who presented to the emergency department at [facility] on 09/05/2021 with request for alcohol detoxification. The patient admitted to drinking approximately 1/5 to a gallon of vodka a day. He reported he had been drinking for almost all of his life. He admitted that his last drink was just prior to coming in to avoid tremor. And he had a can of twisted tea at that time. He was reporting tremors and nausea upon presentation. He did have a recent admission from 08/11/2021 to 08/13/2021 for alcohol detoxification and he was supposed to go for inpatient treatment after discharge however because of financial issues he could not go at that time. He reported on admission at this admission that he called [facility] prior to presentation and has a follow-up appointment with them at 1 PM on 06/29/2021. He is still hoping that he will be able to manage inpatient alcohol rehabilitation program but this is somewhat questionable secondary to finances. He realizes the importance of maintaining sobriety and his overall health. He was admitted to the medical unit and started on a phenobarbital taper along with thiamine and folate as well as supportive medications. His detoxification was overall uneventful and by the a.m. of 09/07/2021 he reported feeling extremely well and desired to go home. Given the fact he was not having any quick acute withdrawal symptoms and had not required any as needed medications he was discharged home in stable condition on the a.m. of 09/07/2021 with instructions to follow-up on Saturday, September 08, 2021 at [facility] as previously recommended. Discharge diagnoses: Acute alcohol withdrawal History of hepatitis C Tobacco abuse Intermittent THC use History of polysubstance abuse Physical Exam Const alert, oriented x3 and no apparent distress Constitutional Narrative: Overweight upper middle-aged white male who appears older than stated age, lying in bed, appears comfortable nontoxic, room is dark, watching television General Appearance: cooperative, comfortable, well kempt and well developed Orientation / Consciousness: awake Exam Limitations: no limitations Nutritional Appearance: overweight HEENT normocephalic, head/scalp atraumatic and moist oral mucous membranes HEENT Narrative: Mallampati is 2, no thrush Resp normal respiratory effort, no retractions, no use of accessory muscles and clear to auscultation bilaterally Resp Narrative: Diffusely diminished but clear Auscultation: Negative for crackles, rales, rhonchi or wheezes Cardio regular rate, regular rhythm, S1 normal heart sound, S2 normal heart sound, no murmurs, no rub, no gallops, no clicks and no JVD GI normal to inspection, nondistended, normoactive bowel sounds, soft to palpation, non-tender and non-distended Extremity no clubbing, cyanosis or edema Extremity Narrative: 2+ pedal pulses Skin no jaundice Neuro oriented x3, CN's II-XII intact bilaterally, moves all extremities and no focal motor deficits Sensorium / Orientation: awake and alert Speech: speech normal Weight / BMI Weight Weight: 89.6 kg Body Mass Index (BMI) 28.3 ABG / Lab / Microbiology Data Result Diagrams: 09/05/21 06:00 09/05/21 06:00 D/C Instructions Discharge Diet: No restrictions Discharge Activity: Return to Normal Activity Return to work on: 09/08/21 Meaningful Use Info Meaningful Use Diagnoses (Choose all that apply): None applicable Discharge Plan Admission Admit Date/Time: 09/05/21 06:06 Primary Reason for Your Visit: Acute alcohol withdrawal Attending Provider: Shala Ortega Primary Care Provider: Care Physician,No Primary Instructions Additional Instructions / Restrictions: 1. Follow-up with [facility] on September 08, 2021 at 1 PM Discharge Orders/Prescriptions Prescriptions: No Action NK RF: 0 Referrals / Follow Up: Care Physician,No Primary [Primary Care Provider] - Disposition Disposition (needs filled in before D/C Order can be placed): Home, Self Care Charges/Coding Visit Charges Inpatient E&M: 76501 Disch Hosp
--- NOTE | 2021-09-07 11:55 | CASEMGMT ---
Social Work Pt is ready for discharge and requesting to leave. SW met with pt to discuss need to stay until Addiction Therapist meets with pt which will be in approximately 45 minutes. Pt stating that he has an appointment with Doylearya tomorrow at 1pm to finish his intake and work out his financials. Pt stating the plan is for the IOP program over Zoom through [facility]. SW explained that pt does need to meet with Addiction Therapist even if he does have a plan. RN updated that addiction therapist will be here within the hour. JIAN Chris
--- NOTE | 2021-09-07 12:35 | ADDICTION ---
This junior copywriter met with PT to conduct ASAM, MSE, AUDIT assessments and to plan for d/c. PT A+Ox4 and participated actively. All assessments completed, and placed in PT's chart. PT plans to f/u with individual counselor at [facility] for follow-up counseling services. PT did not indicate a need for transportation post d/c from [facility].
--- NOTE | 2021-09-07 12:36 | NURSING ---
Reviewed charting with Sarbjit Beck RN
== END 2021-09-07 12:31 | disposition home or self-care (01) | DRG 775 ==
LOC: ED 06:24 → PCU 06:28
PROVIDERS: Admitting Provider Hospitalist; Emergency Provider Emergency Medicine; Visit Provider Internal Medicine
DX: F10.239 Alcohol dependence with withdrawal, unspecified (principal); F31.9 Bipolar disorder, unspecified; E66.3 Overweight; F12.10 Cannabis abuse, uncomplicated; F17.210 Nicotine dependence, cigarettes, uncomplicated; I10 Essential (primary) hypertension; Y90.7 Blood alcohol level of 200-239 mg/100 ml; Z68.28 Body mass index [BMI] 28.0-28.9, adult; Z86.19 Personal history of other infectious and parasitic diseases; Z81.1 Family history of alcohol abuse and dependence
CPT/HCPCS: 80053; 80307; 82077; 85025; 99284; 99406; A4216

== ENCOUNTER 2021-09-17 12:09 | Inpatient (IN) | payer MEDICAID, SELFPAY ==
[2021-09-17 12:10] VITALS: BP 102/75; PULSE 117; RESP 17; TEMP 36.9; O2SAT 94; BMI 28.2
--- NOTE | 2021-09-17 12:25 | EDS_ITS ---
HPI History of Present Illness Chief Complaint: Substance Abuse Detail of Chief Complaint: Requesting detox from alcohol Informant: patient Narrative Narrative: Patient presents to the emergency department requesting detox from alcohol. Patient states that he was last here about 3 weeks ago for same. Patient states that he has been in contact with 180 and he brought his garment bag with him as he is willing to go to residential treatment after inpatient stay in the hospital. Patient wants to get things right. His last drink was about 45 minutes ago. Patient normally drinks about 1/5 of vodka daily. Patient's had some intermittent nausea and vomiting. Denies abdominal pain. He denies fevers or recent illness. Patient has history of hep C as well as history of anxiety and depression. He denies feeling suicidal or homicidal. Prior similar symptoms: Yes [facility] Medical History (Updated 09/17/21 @ 13:[address] Ange Howe, DO) Alcohol abuse Alcohol abuse Anxiety Bipolar disorder Cannabis abuse Depression H/O appendicitis Hepatitis History of intravenous drug use in remission Osteoarthritis Smoker Tobacco abuse Home Medications NK 09/05/21 [History Last Taken Unknown] Allergy/AdvReac Type Severity Reaction Status Date / Time No Known Allergies Allergy Verified 09/17/21 12:10 Family History Father Throat cancer Alcoholism and drug addiction in family Social History current occupational status: employed current occupation: Factory Work Smoking Status: Current every day smoker tobacco type: cigarettes alcohol intake: current alcohol intake frequency: 3 or more drinks per day details: 1/5 to 1 gallon of vodka a day substance use type: marijuana what type of physical activity do you participate in: none ROS ROS ED Constitutional Constitutional ED: Reports systems reviewed and no addt'l complaints, except as documented; Denies body ache(s), change in weight or chills Eyes Eyes: Denies acute decrease in peripheral vision, change in vision, double vision or loss of vision ENT ENT ED: Reports none; Denies ear pain, lip swelling, loss taste/smell, neck pain, otalgia or sore throat Cardiovascular Cardiovascular: Reports none; Denies abdominal pain, chest pain with activity, leg edema, lightheadedness, palpitations, rapid heart rate or syncope Respiratory/Chest Respiratory/Chest: Reports none; Denies change in mental status, dry cough, dyspnea, hemoptysis, shortness of breath at rest or shortness of breath with exertion Gastrointestinal Gastrointestinal: Reports none, nausea and vomiting; Denies abdominal pain, change in stool character, diarrhea, hematemesis, hematochezia, melena or rectal bleeding Genitourinary Genitourinary ED: Reports none; Denies abdominal discomfort, anuria, dysuria, genital pain or polyuria Musculoskeletal Musculoskeletal: Reports none; Denies arthralgias, back pain, difficulty walking, extremity pain, muscle weakness or myalgias Integumentary Reports none; Denies abscess or rash Neurologic Neurologic: Reports none; Denies abnormal gait, confusion, focal weakness, frequent falls, headache(s), loss of vision, numbness, paresthesias, radicular pain, vertigo or weakness Psychiatric Psychiatric: Reports systems reviewed and no addt'l complaints, except as documented and none; Denies behavioral changes, confusion, difficulty concentrating, hallucinations, suicidal ideation, tactile hallucinations or visual hallucinations Endocrine Endocrinology: Denies none, cold intolerance, excessive sweating, fatigue or heat intolerance Hematologic/Lymphatic Hematologic/Lymphatic: Reports none; Denies anemia, easy bleeding or easy bruising Allergic/Immunologic Allergic/Immunologic ED: Denies as per HPI, none, lip swelling, mouth swelling, throat swelling, tongue swelling or hives EXAM Physical Exam Const Vital Signs: 09/17/21 12:10 Temperature 98.4 F Temperature Source Temporal Pulse Rate 117 H Respiratory Rate 17 Blood Pressure 102/75 Blood Pressure Mean 84 Pulse Ox 94 Oxygen Delivery Method Room Air Positive well nourished and well developed General Appearance ED: well developed and NAD HEENT Reports TM's clear and moist mucous membranes normocephalic and atraumatic; Negative for trauma or tenderness Tympanic Membrane ED: Yes TM's clear Eyes PERRL and EOMs intact bilaterally General Eye ED: Negative for pale conjunctiva or scleral icterus Neck no lymphadenopathy, supple and no JVD General: Negative for tenderness Chest Wall inspection of chest normal and palpation of chest normal Chest: Negative for tenderness Resp normal respiratory effort and clear to auscultation bilaterally Effort and Inspection: Negative for respiratory distress or pain with movement Auscultation: Negative for rhonchi, wheezes or diminished lung sounds Cardio regular rate, regular rhythm, S1 normal heart sound, S2 normal heart sound and no murmurs Peripheral Pulses: pulses 2+ throughout GI normal to inspection, nondistended, normoactive bowel sounds, soft to palpation, non-tender, non-distended and no masses Back/Spine no CVA tenderness and no thoracic nor lumbar tenderness Extremity normal to inspection General Extremety ED: Negative for edema General Extremity: Negative for edema Neuro oriented x3, CN's II-XII intact bilaterally, no sensory deficits noted and gait normal Sensorium / Orientation: awake, alert, oriented to person, oriented to place and oriented to time Motor Exam: strength 5/5 throughout and strength abnormal Psych mental status grossly normal Skin no rashes or lesions noted and no wounds MDM MDM MDM Narrative Medical decision making narrative: IV line established on arrival. Patient was given normal saline and Zofran 4 mg IV. Case will be discussed with hospitalist evaluate patient for admission for diagnosis of alcohol abuse and request for detox Lab Data Attestation: I reviewed the patient's lab results. Labs: Laboratory Results - last 24 hr 09/17/21 09/17/21 09/17/21 12:35 12:35 12:50 WBC 10.5 RBC 4.82 Hgb 17.0 H Hct 48.6 MCV 100.8 H MCH 35.3 H MCHC 35.0 RDW Std Deviation 46.1 H RDW Coeff of Shekhar 12.1 Plt Count 230 MPV 10.1 Immature Gran % (Auto) 0.200 Neut % (Auto) 48.3 Lymph % (Auto) 40.1 Delta % (Auto) 8.8 Eos % (Auto) 1.6 Baso % (Auto) 1.0 Absolute Neuts (auto) 5.1 Absolute Lymphs (auto) 4.21 Nucleated RBC % 0 Sodium 139 Potassium 4.1 Chloride 107 Carbon Dioxide 23.0 Anion Gap 9 BUN 4 L Creatinine 0.95 Estim Creat Clear Calc 91.78 Est GFR (MDRD) Af Amer 106 Est GFR (MDRD) Non-Af 88 BUN/Creatinine Ratio 4.2 L Glucose 105 Calcium 8.5 Total Bilirubin 0.70 AST 87 H ALT 69 H Alkaline Phosphatase 91 Total Protein 7.9 Albumin 3.6 Globulin 4.3 H Albumin/Globulin Ratio 0.8 L Lipase 64 L Ur Drug Screen Comment Discharge Plan Triage Chief Complaint: Substance Abuse ED Provider: Ange Howe Dx/Rx/DC Orders Clinical Impression: ETOH abuse, Desire for detoxification Prescriptions: No Action NK RF: 0 Primary Care Provider: Care Physician,No Primary Referrals: Care Physician,No Primary [Primary Care Provider] - Disposition Disposition: Acute Care Hospital [facility]
[2021-09-17] MEDS: 0.9% Normal Saline 1,000 ML 150 ML IV (12:35)
[2021-09-17] MEDS: Ondansetron 4 MG/2 ML Vial IV ×2 (12:35→21:40)
[2021-09-17 12:44] LABS: Absolute Lymphocyte Count 4.21 X10^3/uL (0.83-4.51); Absolute Neutrophil Count 5.1 X10^3/uL (2.0-7.7); Eosinophil# 0.17 X10^3/uL; Eosinophils% 1.6 % (0-5); Hematocrit 48.6 % (40-54); Lymphocyte # 4.21 X10^3/ul (0.83-4.51); Lymphocyte % 40.1 % (19-41); Mean Corpuscular Hgb 35.3 pg (27.0-32.0); Mean Corpuscular Volume 100.8 fL (80-94); Mean Platelet Vol. 10.1 fl (6.2-12.0); Monocyte# 0.92 X10^3/uL; Monocyte% 8.8 % (0-10); NRBC Flagged by Analyzer 0 % (0-5); Neutrophil # 5.08 X10^3/uL (2.7-7.7); Neutrophil % 48.3 % (47-70); Platelet Count 230 K/mm3 (150-450); RBC Distribution Width CV 12.1 % (11.6-14.6); RBC Distribution Width SD 46.1 fl (35.1-43.9); Red Blood Count 4.82 M/mm3 (4.6-6.2); White Blood Count 10.5 K/mm3 (4.4-11.0)
[2021-09-17 13:02] LABS: ALB/GLOB Ratio 0.8 RATIO (0.9-2.4); AST(SGOT) 87 U/L (15-37); Alanine Aminotransfer ALT/SGPT 69 U/L (16-61); Albumin, Serum 3.6 g/dL (3.2-5.0); Alkaline Phosphatase 91 U/L (45-117); Anion Gap 9 (5-15); BUN 4 mg/dL (7-18); BUN/Creat Ratio 4.2 RATIO (10-20); Calcium,Total 8.5 mg/dL (8.5-10.1); Chloride 107 mmol/L (98-107); Creatinine, Serum 0.95 mg/dL (0.70-1.30); EST Glomerular Filtration Rate 88 mL/min (>60); Est Glom Filt Rate - Afr Amer 106 mL/min (>60); Estimated Creatinine Clearance 91.78 ml/min; Globulin 4.3 g/dL (2.2-4.2); Glucose 105 mg/dL (74-106); Lipase 64 U/L (73-393); Potassium 4.1 mmol/L (3.5-5.1); Protein, Total 7.9 g/dL (6.4-8.2); Sodium Level 139 mmol/L (136-145)
[2021-09-17 13:22] LABS: Amphetamine Urine VISTA NEGATIVE (<1000 ng/mL); Barbiturate Urine VISTA POSITIVE (< 200 ng/mL); Benzodiazepine Urine VISTA NEGATIVE (< 200 ng/mL); Cocaine Urine VISTA POSITIVE (< 300 ng/mL); Ecstacy Urine VISTA NEGATIVE (< 500 ng/mL); Methadone Urine VISTA NEGATIVE (< 300 ng/mL); PCP Urine VISTA NEGATIVE (< 25 ng/mL); THC Urine VISTA NEGATIVE (< 50 ng/mL); Vista UDS pH Range 7
--- NOTE | 2021-09-17 13:24 | PCM.HP.STD ---
[facility] - General General Date of Admission: 09/17/21 Date of Service: 09/17/21 Chief Complaint: Acute alcohol withdrawal syndrome. Shaking, nausea and vomiting HPI Narrative CORY RODRIGES, is a 55 M with history of chronic alcohol use disorder and past opioid use disorder came to ER with shaking, tremors, nausea and vomiting and diarrhea. Patient states his last drink of alcohol was about 12 noon today. Patient drinks 1/5 to half gallon of vodka every day since age of 17. Patient having tremors, flushing, dehydrated, nausea and vomiting and diarrhea. He is having loose watery bowel movement for long time. He states his diarrhea is chronic for 5 to 6 years unclear whether related to alcohol withdrawal. Initially patient had few dry heaving and then bilious vomiting. Denies active GI bleed including hematemesis, hematochezia or melena. He had once, hematemesis in the past. Denies ascites or cirrhosis. In the past he has disorder and is currently hepatitis C. He also recently snorted cocaine few days ago. He denies current opioid use IV or oral or snorting, methamphetamine, bath salts or ecstasy. He smokes cigarettes half pack to 1 pack daily In the ED, is tachycardic but blood pressure 102/25 on lower side. Patient is further admitted. [facility] Medical History Alcohol abuse Alcohol abuse Anxiety Bipolar disorder Cannabis abuse Depression H/O appendicitis Hepatitis History of intravenous drug use in remission Osteoarthritis Smoker Tobacco abuse Home Medications NK 09/05/21 [History Last Taken Unknown] Allergy/AdvReac Type Severity Reaction Status Date / Time No Known Allergies Allergy Verified 09/17/21 12:10 Family History Father Throat cancer Alcoholism and drug addiction in family Social History current occupational status: employed current occupation: Factory Work Smoking Status: Current every day smoker tobacco type: cigarettes alcohol intake: current alcohol intake frequency: 3 or more drinks per day details: 1/5 to 1 gallon of vodka a day substance use type: marijuana what type of physical activity do you participate in: none ROS ROS Narrative Constitutional: Generalized shaking and tremors. HEENT: Chronic tinnitus unclear which ear. He states he has for long time. Never been evaluated by ENT or physician. Denies loss of hearing left ear. Hearing. Reports systems reviewed and no addt'l complaints, except as documented. Respiratory/Chest: Denies chest pain, shortness of breath at rest or with exertion Gastrointestinal: As mentioned in HPI Genitourinary: Denies burning urination or new urinary tract symptoms Musculoskeletal: Denies joint pain and limited range of motion Neurologic: Denies seizure-like activity. No focal neurological symptoms Psychiatric: Denies hallucinations or delusion. No suicidal ideation or attempt skin: No ulcer. No rash Endocrinology: Reports systems reviewed and no addt'l complaints, except as documented Hematologic/Lymphatic: Reports systems reviewed and no addt'l complaints, except as documented Rest 14 ROS are negative except as mentioned in HPI Vital Signs Vital Signs Vital Signs: 09/17/21 12:10 Temperature 98.4 F Temperature Source Temporal Pulse Rate 117 H Respiratory Rate 17 Blood Pressure 102/75 Blood Pressure Mean 84 Pulse Ox 94 Oxygen Delivery Method Room Air Weight Weight: 196 lb 10.437 oz Body Mass Index (BMI) 28.2 Physical Exam Narrative General: Alert, Oriented x3, Cooperative HEENT: Atraumatic, PERRLA, EOMI, Normocephalic Oral: Dry oral mucosa. No Gingival or Mucosal Lesions/ Ulcerations Neck: Supple, No JVD, Negative Carotid Bruits Lungs: Air entry diminished in bilateral lung bases. No crepitation/rhonchi Cardiovascular: Sinus tachycardia, Normal S1, Normal S2, No murmurs Abdomen: Bowel Sounds Present, Soft, mild tenderness over right subcostal region. Right subcostal liver edge palpable. Liver dullness starts at sixth ICS in midclavicular line. Spleen not palpable : No renal angle tenderness. No suprapubic tenderness. Extremities: Tremors in both hands. No edema, Capillary Refill Less than 3 Seconds Skin: Dry and flushed skin. Musculoskeletal: No Tenderness to Palpation of Joints or Extremities. Range of motion intact Neurological: Cranial nerves II-XII grossly intact, DTR 2+/4 and Symmetrical, Neuro grossly intact Psych/Mental Status: Anxious, restless. No delusion/hallucination. Results Lab / Micro Data Result Diagrams: 09/17/21 12:35 09/17/21 12:35 Labs: Laboratory Results - last 24 hr 09/17/21 12:35: WBC 10.5, RBC 4.82, Hgb 17.0 H, Hct 48.6, MCV 100.8 H, MCH 35.3 H, MCHC 35.0, RDW Std Deviation 46.1 H, RDW Coeff of Shekhar 12.1, Plt Count 230, MPV 10.1, Immature Gran % (Auto) 0.200, Neut % (Auto) 48.3, Lymph % (Auto) 40.1, Rose[place] % (Auto) 8.8, Eos % (Auto) 1.6, Baso % (Auto) 1.0, Absolute Neuts (auto) 5.1, Absolute Lymphs (auto) 4.21, Nucleated RBC % 0 09/17/21 12:35: Sodium 139, Potassium 4.1, Chloride 107, Carbon Dioxide 23.0, Anion Gap 9, BUN 4 L, Creatinine 0.95, Estim Creat Clear Calc 91.78, Est GFR (MDRD) Af Amer 106, Est GFR (MDRD) Non-Af 88, BUN/Creatinine Ratio 4.2 L, Glucose 105, Calcium 8.5, Total Bilirubin 0.70, AST 87 H, ALT 69 H, Alkaline Phosphatase 91, Total Protein 7.9, Albumin 3.6, Globulin 4.3 H, Albumin/Globulin Ratio 0.8 L, Lipase 64 L 09/17/21 12:35: Ethyl Alcohol 100.0 09/17/21 12:50: Urine Opiates Screen NEGATIVE, Urine Methadone Screen NEGATIVE, Ur Barbiturates Screen POSITIVE H, Ur Phencyclidine Scrn NEGATIVE, Ur Amphetamines Screen NEGATIVE, MDMA (Ecstasy) Screen NEGATIVE, U Benzodiazepines Scrn NEGATIVE, Urine Cocaine Screen POSITIVE H, U Cannabinoids Screen NEGATIVE, Ur Drug Screen Comment Assessment & Plan Assessment/Plan (1) Alcohol withdrawal delirium, acute, hyperactive: PLAN: 1. Acute alcohol withdrawal syndrome with history of chronic alcohol use and dependence: Patient is being admitted to [facility] floor. IV fluid Ringer lactate. Labs reviewed. H&H , hemoconcentrated. His baseline hemoglobin is 15.4. RBCs macrocytic. Serum sodium, potassium, chloride and bicarb normal. Anion gap 9. BUN 4. Creatinine 0.95 2. Dehydration with hemoconcentration: IV fluid as mentioned above. Serum magnesium and phosphorus ordered. 3. Acute on chronic alcoholic hepatitis: Patient had right upper quadrant tenderness. Liver edge palpable. Patient AST ALT has been elevated in the past since first lab on August 12, 2021. AST 87, ALT 69. Total bili alk phos normal. A/G ratio 0.8. Lipase low 64. 4. History of chronic opioid use in the past and chronic hepatitis C: Patient has never been treated. U tox positive for barbiturates, cocaine. Patient states he uses marijuana but cannabinoids negative. In the past he had used oral and IV fentanyl and heroin but quit 3 years ago 5. Cigarette smoking/chronic nicotine use: Nicotine abuse ordered VTE prophylaxis moderate risk, Lovenox 40 mg subcu daily. Discontinue if platelet count drops less than 50,000 or hemoglobin less than 8 g%. Living will/advanced directive/end of life care: Patient does not have living will or advanced directive. After discussion of benefits/risks procedures involved with full code, DNR CC arrest and DNR CC, the patient opted for full code. This will be further discussed in PCP office. Patient does want artificial life support including intubation, tube feed, ventilator and/chest compression, central venous catheter, vasopressor and DC shock if needed Total time spent in [id number] encounter in discussion of advanced directive 16 minutes. Charges/Coding Visit Charges Inpatient E&M: 74161 Init Hosp L3 Procedures Hospitalists Procedures: 19460 Advncd Care Plan 30 Min
[2021-09-17 13:26] VITALS: BP 106/68; PULSE 86; RESP 16; TEMP 36.9; O2SAT 95
[2021-09-17 13:54] LABS: International Normalized Ratio 1.1; Prothrombin Time (Protime)PT. 13.6 SECONDS (11.7-14.9)
[2021-09-17 13:55] VITALS: BMI 27.8
[2021-09-17 13:56] VITALS: BP 103/74; PULSE 81; RESP 16; TEMP 36.7; O2SAT 96
[2021-09-17 13:59] LABS: Magnesium 1.8 mg/dL (1.6-2.6); Phosphorus 1.5 mg/dL (2.5-4.9)
[2021-09-17] MEDS: Lactated Ringers 1,000 ML 125 ML IV (14:21)
[2021-09-17 17:57] VITALS: BP 123/74; PULSE 16; PULSE 79; RESP 16; TEMP 37.1; O2SAT 99
[2021-09-17] MEDS: Phenobarbital 32.4 MG Tablet 64.8 MG PO ×2 (18:01→21:40)
[2021-09-17] MEDS: Thiamine Hydrochloride 100 MG Tablet PO (18:01)
[2021-09-17 20:06] VITALS: BP 104/70; PULSE 82; RESP 18; TEMP 37; O2SAT 94
[2021-09-17] MEDS: traZODone 100 MG Tablet PO (21:39)
[2021-09-17] MEDS: 0.9% Saline Lock 10 ML Syringe IV (21:40)
[2021-09-18 02:53] VITALS: BP 103/75; PULSE 61; RESP 16; TEMP 36.4; O2SAT 96
[2021-09-18] MEDS: Phenobarbital 32.4 MG Tablet 64.8 MG PO ×6 (02:58→22:38)
[2021-09-18 06:00] VITALS: BP 105/65; PULSE 55; RESP 16; TEMP 36.6; O2SAT 97
[2021-09-18] MEDS: Lactated Ringers 1,000 ML 125 ML IV (06:10)
[2021-09-18 06:54] LABS: ALB/GLOB Ratio 0.9 RATIO (0.9-2.4); AST(SGOT) 55 U/L (15-37); Alanine Aminotransfer ALT/SGPT 53 U/L (16-61); Albumin, Serum 2.9 g/dL (3.2-5.0); Alkaline Phosphatase 79 U/L (45-117); BUN 6 mg/dL (7-18); BUN/Creat Ratio 7.2 RATIO (10-20); Calcium,Total 7.7 mg/dL (8.5-10.1); Chloride 108 mmol/L (98-107); Creatinine, Serum 0.84 mg/dL (0.70-1.30); EST Glomerular Filtration Rate 101 mL/min (>60); Est Glom Filt Rate - Afr Amer 122 mL/min (>60); Globulin 3.3 g/dL (2.2-4.2); Glucose 90 mg/dL (74-106); Magnesium 1.7 mg/dL (1.6-2.6); Phosphorus 2.9 mg/dL (2.5-4.9); Protein, Total 6.2 g/dL (6.4-8.2); Sodium Level 139 mmol/L (136-145)
[2021-09-18 06:55] LABS: Anion Gap 3 (5-15)
[2021-09-18 08:36] VITALS: BP 119/78; PULSE 61; RESP 18; TEMP 36.6; O2SAT 98
[2021-09-18] MEDS: Enoxaparin 40 MG/0.4 ML Syringe SC (08:45)
[2021-09-18] MEDS: Thiamine Hydrochloride 100 MG Tablet PO (08:46)
[2021-09-18] MEDS: Gabapentin 300 MG Capsule PO (08:46)
[2021-09-18] MEDS: Loperamide 2 MG Capsule PO (08:46)
[2021-09-18] MEDS: Folic Acid 1 MG Tablet PO (08:46)
[2021-09-18] MEDS: Dicyclomine 10 MG Capsule 20 MG PO (08:46)
[2021-09-18] MEDS: hydrOXYzine PAM 25 MG Capsule 50 MG PO ×3 (10:21→22:38)
[2021-09-18 10:27] VITALS: BP 121/77; PULSE 60; RESP 18; TEMP 36.7; O2SAT 98
--- NOTE | 2021-09-18 11:36 | ADDICTION ---
This communications writer met with PT to conduct ASAM, MSE, AUDIT assessments and to plan for d/c. PT A+Ox4 and participated actively. All assessments completed and placed in PT's chart. PT plans to f/u with [facility] for follow-up in-patient treatment services at [facility]. [facility] will provide transportation post d/c from [facility].
--- NOTE | 2021-09-18 12:39 | PCM.PN.HOSP ---
Subjective Subjective Patient indicates he was not sober for very long after his last detox 2 weeks ago. He states that now he realizes he needs inpatient treatment and is willing to do so. He states overall he is feeling okay today. Objective Data Objective Data Vital Signs: Vital Signs Temp Pulse Resp BP Pulse Ox 98.0 F 60 18 121/77 H 98 09/18/21 10:27 09/18/21 10:27 09/18/21 10:27 09/18/21 10:27 09/18/21 10:27 Oxygen Delivery Method Room Air Weight: 88.2 kg Body Mass Index (BMI) 27.8 Intake & Output: Intake and Output for Last 24 Hours 09/16/21 09/17/21 09/18/21 23:59 23:59 23:59 Intake Total 1800 / 1800 1159.1633 / 1159.1633 Balance 1800 / 1800 1159.1633 / 1159.1633 Medical Nutrition Assessment Dietitian: Malnutrition Criteria Met Start: 09/18/21 11:37 Freq: Status: Active Protocol: Document 09/18/21 11:38 ALLEN (Rec: 09/18/21 11:38 [facility] [id number]) Nutrition Malnutrition Evidence of Malnutrition Exists Yes Malnutrition (severe): Social/Behavioral/ Environmental Evidenced By Suboptimal Energy Intake ( Severe),Weight Loss (Severe), Physical Changes (Mild) Clinical Problem Acute Disease or Injury Related Malnutrition Etiology related to alcohol abuse drinking 1/5 vodka per day x 2 months and not eating adequately to meet est nutritional needs Signs/Symptoms as evidenced by <50% po intake and 15.7% wt loss x 2-3 mo, also with fat/muscle loss in face/upper body. Status Active Problem Recommendation Dietitian Recommendations/Changes Will continue diet as ordered Will order ensure enlive 4x/ day w/ medpass (pt prefers strawberry) Will continue to monitor for changes in pt nutritional status Lab / Micro Data Result Diagrams: 09/17/21 12:35 09/18/21 05:58 Labs: Laboratory Results - last 24 hr 09/17/21 12:35: WBC 10.5, RBC 4.82, Hgb 17.0 H, Hct 48.6, MCV 100.8 H, MCH 35.3 H, MCHC 35.0, RDW Std Deviation 46.1 H, RDW Coeff of Shekhar 12.1, Plt Count 230, MPV 10.1, Immature Gran % (Auto) 0.200, Neut % (Auto) 48.3, Lymph % (Auto) 40.1, [place] % (Auto) 8.8, Eos % (Auto) 1.6, Baso % (Auto) 1.0, Absolute Neuts (auto) 5.1, Absolute Lymphs (auto) 4.21, Nucleated RBC % 0 09/17/21 12:35: Sodium 139, Potassium 4.1, Chloride 107, Carbon Dioxide 23.0, Anion Gap 9, BUN 4 L, Creatinine 0.95, Estim Creat Clear Calc 91.78, Est GFR (MDRD) Af Amer 106, Est GFR (MDRD) Non-Af 88, BUN/Creatinine Ratio 4.2 L, Glucose 105, Calcium 8.5, Total Bilirubin 0.70, AST 87 H, ALT 69 H, Alkaline Phosphatase 91, Total Protein 7.9, Albumin 3.6, Globulin 4.3 H, Albumin/Globulin Ratio 0.8 L, Lipase 64 L 09/17/21 12:35: Ethyl Alcohol 100.0 09/17/21 12:41: Phosphorus 1.5 L, Magnesium 1.8 09/17/21 12:50: Urine Opiates Screen NEGATIVE, Urine Methadone Screen NEGATIVE, Ur Barbiturates Screen POSITIVE H, Ur Phencyclidine Scrn NEGATIVE, Ur Amphetamines Screen NEGATIVE, MDMA (Ecstasy) Screen NEGATIVE, U Benzodiazepines Scrn NEGATIVE, Urine Cocaine Screen POSITIVE H, U Cannabinoids Screen NEGATIVE, Ur Drug Screen Comment 09/17/21 13:23: PT Cancelled, INR Cancelled 09/17/21 13:39: PT 13.6, INR 1.1 09/18/21 05:58: Sodium 139, Potassium 4.0, Chloride 108 H, Carbon Dioxide 28.0, Anion Gap 3 L, BUN 6 L, Creatinine 0.84, Estim Creat Clear Calc 103.80, Est GFR (MDRD) Af Amer 122, Est GFR (MDRD) Non-Af 101, BUN/Creatinine Ratio 7.2 L, Glucose 90, Calcium 7.7 L, Phosphorus 2.9, Magnesium 1.7, Total Bilirubin 0.90, AST 55 H, ALT 53, Alkaline Phosphatase 79, Total Protein 6.2 L, Albumin 2.9 L, Globulin 3.3, Albumin/Globulin Ratio 0.9 Physical Exam Const alert, oriented x3, no apparent distress and well nourished Exam Limitations: no limitations Nutritional Appearance: overweight HEENT head/scalp atraumatic and moist oral mucous membranes HEENT Narrative: Dentition is poor, Mallampati is 2, no thrush Head and Scalp: normocephalic Resp normal respiratory effort, no retractions, no use of accessory muscles and clear to auscultation bilaterally Resp Narrative: Diffusely diminished but clear Auscultation: Negative for crackles, rales, rhonchi or wheezes Cardio regular rate, regular rhythm, S1 normal heart sound, S2 normal heart sound, no murmurs, no rub, no gallops, no clicks and no JVD GI normal to inspection, nondistended, normoactive bowel sounds, soft to palpation, non-tender and non-distended Extremity no clubbing, cyanosis or edema Peripheral Pulses: Yes pulses 2+ throughout Neuro oriented x3, moves all extremities and no focal motor deficits Sensorium / Orientation: awake and alert Speech: speech normal Psych affect normal Assessment & Plan Assessment/Plan (1) Alcohol withdrawal: (2) ETOH abuse: (3) Desire for detoxification: PLAN: Acute alcohol withdrawal -Patient was here in early August and then late August with recent discharge on 09/07/2021 -Drinks about 1/5 to a gallon of vodka a day -Indicates has been drinking almost all of his life -Continue phenobarbital taper -Continue thiamine and folate -Continue supportive medications -Patient states clinically he is feeling okay and hoping to be discharged tomorrow -Patient was seen by addiction medicine and plan is for inpatient rehab at [facility] upon discharge History of hepatitis C -Resulted from IV drug use -Would like to be treated once he is sober -I did discuss with him a referral to Dr. Mendieta after discharge and he was amenable to this Tobacco abuse -Currently smokes approximately 1 pack of cigarettes daily -Continue patch available -Recommend cessation History of polysubstance abuse -IVDU with fentanyl and heroin remotely -Patient has not used since the early 1999 Intermittent THC use -Recommend cessation -Last use was reported approximately 1 month ago DVT prophylaxis -Low risk -Early ambulation CODE STATUS -Full code Charges/Coding Visit Charges Inpatient E&M: 77517 Subs Hosp L2
[2021-09-18 14:20] VITALS: BP 102/64; PULSE 55; RESP 18; TEMP 36.8; O2SAT 98
[2021-09-18] MEDS: 0.9% Saline Lock 10 ML Syringe IV (14:22)
[2021-09-18 20:55] VITALS: BP 117/73; PULSE 78; RESP 16; TEMP 36.6; O2SAT 97
[2021-09-18] MEDS: traZODone 100 MG Tablet PO (22:38)
[2021-09-19 03:00] VITALS: BP 94/58; PULSE 69; RESP 16; TEMP 36.5; O2SAT 98
[2021-09-19] MEDS: Phenobarbital 32.4 MG Tablet 64.8 MG PO ×3 (03:03→11:09)
[2021-09-19 06:36] VITALS: BP 92/57; PULSE 74; RESP 16; TEMP 36.6; O2SAT 95
[2021-09-19 10:01] VITALS: BP 100/62; PULSE 67; RESP 16; TEMP 37; O2SAT 99
[2021-09-19] MEDS: Folic Acid 1 MG Tablet PO (10:06)
[2021-09-19] MEDS: Thiamine Hydrochloride 100 MG Tablet PO (10:06)
--- NOTE | 2021-09-19 10:54 | ADDICTION ---
Pt will be picked up and transported today to Residential treatment at [facility]. Miguel ( hospital supervisory it specialist) will provide transportation.
--- NOTE | 2021-09-19 11:14 | PCM.DC.SUM ---
Providers Date of Admission: 09/17/21 Date of Discharge: 09/19/21 Primary Care Physician: No Primary Care Phys Reason For Visit: SUBSTANCE USE DISORDER Diagnosis Discharge Diagnosis (1) Alcohol withdrawal: Status: Acute Code(s): F10.239 - Alcohol dependence with withdrawal, unspecified (2) ETOH abuse: Status: Acute Code(s): F10.10 - Alcohol abuse, uncomplicated (3) Desire for detoxification: Status: Acute Medications at Discharge Home Medications NK 09/05/21 Hospital Course Operations None Procedures None Summary of Care Provided Minutes Spent on Discharge: 38 Hospital Course: Mr. Weir is a 55-year-old white male who presented to emergency department was [facility] on 09/17/2021 with request for alcohol detox. The patient had a recent admission here from 09/05/2021 to 09/07/2021 for the same and he states he did follow-up at that time with 180 as an outpatient but started drinking again shortly thereafter. Upon admission at this hospitalization he was agreeable to inpatient treatment at this time. Upon presentation he was having shaking, tremors, nausea, vomiting, and diarrhea. His last alcoholic drink was approximately noon on the day of presentation. He was admitted to the medical floor and started on a phenobarbital taper as well as supportive medications and thiamine and folate. He did well during his detox and was evaluated by 180. He has agreed to inpatient rehab pathway and was discharged in stable condition on 09/19/2021. Discharge diagnoses: Acute alcohol withdrawal History of hepatitis C Tobacco abuse Intermittent THC use History of polysubstance abuse Physical Exam Narrative Patient states he is feeling well. He has agreed to inpatient treatment and states he feels that he is ready to go today. No significant signs of withdrawal at this time. Const alert, oriented x3, no apparent distress and well nourished Constitutional Narrative: Overweight upper middle-aged white male who appears comfortable, nontoxic, very pleasant General Appearance: cooperative, comfortable, well kempt and well developed Exam Limitations: no limitations Nutritional Appearance: overweight HEENT normocephalic, head/scalp atraumatic, hearing grossly normal bilaterally and moist oral mucous membranes HEENT Narrative: Mallampati is 2, no thrush, dentition is fair Eyes PERRL, EOMs intact bilaterally and conjunctivae normal Eyes Narrative: No scleral icterus Neck no lymphadenopathy, supple and no JVD Neck Narrative: Trachea midline, no thyroid enlargement Resp normal respiratory effort, no retractions, no use of accessory muscles and clear to auscultation bilaterally Resp Narrative: Diffusely diminished but clear Auscultation: Negative for crackles, rales, rhonchi or wheezes Cardio regular rate, regular rhythm, S1 normal heart sound, S2 normal heart sound, no murmurs, no rub, no gallops, no clicks and no JVD GI normal to inspection, nondistended, normoactive bowel sounds, soft to palpation, non-tender and non-distended Extremity no clubbing, cyanosis or edema Skin no rashes or lesions noted, no wounds, skin turgor normal and no jaundice Neuro oriented x3, CN's II-XII intact bilaterally, moves all extremities and no focal motor deficits Sensorium / Orientation: awake and alert Speech: speech normal Psych affect normal Medical Records Data Medical Nutrition Assessment Dietitian: Malnutrition Criteria Met Start: 09/18/21 11:37 Freq: Status: Active Protocol: Document 09/18/21 11:38 ALLEN (Rec: 09/18/21 11:38 [facility] [id number]) Nutrition Malnutrition Evidence of Malnutrition Exists Yes Malnutrition (severe): Social/Behavioral/ Environmental Evidenced By Suboptimal Energy Intake ( Severe),Weight Loss (Severe), Physical Changes (Mild) Clinical Problem Acute Disease or Injury Related Malnutrition Etiology related to alcohol abuse drinking 1/5 vodka per day x 2 months and not eating adequately to meet est nutritional needs Signs/Symptoms as evidenced by <50% po intake and 15.7% wt loss x 2-3 mo, also with fat/muscle loss in face/upper body. Status Active Problem Recommendation Dietitian Recommendations/Changes Will continue diet as ordered Will order ensure enlive 4x/ day w/ medpass (pt prefers strawberry) Will continue to monitor for changes in pt nutritional status Weight / BMI Weight Weight: 88.2 kg Body Mass Index (BMI) 27.8 ABG / Lab / Microbiology Data Result Diagrams: 09/17/21 12:35 09/18/21 05:58 D/C Instructions Discharge Diet: No restrictions Discharge Activity: Return to Normal Activity Meaningful Use Info Meaningful Use Diagnoses (Choose all that apply): None applicable Discharge Plan Admission Admit Date/Time: 09/17/21 13:06 Primary Reason for Your Visit: EtOH Detox Attending Provider: Shala Ortega Primary Care Provider: Care Physician,No Primary Discharge Orders/Prescriptions Prescriptions: No Action NK RF: 0 Referrals / Follow Up: Sadie Weeks MD [STAFF PHYSICIAN] - Within 1 Month (establish with a PCP) Care Physician,No Primary [Primary Care Provider] - Disposition Disposition (needs filled in before D/C Order can be placed): Home, Self Care Charges/Coding Visit Charges Inpatient E&M: 23534 Disch Hosp
== END 2021-09-19 12:15 | disposition home or self-care (01) | DRG 897 ==
LOC: ED 13:19 → MS3 13:52
PROVIDERS: Admitting Provider Internal Medicine; Emergency Provider Emergency Medicine; Visit Provider Internal Medicine
DX: F10.231 Alcohol dependence with withdrawal delirium (principal); B17.10 Acute hepatitis C without hepatic coma; B18.2 Chronic viral hepatitis C; F12.10 Cannabis abuse, uncomplicated; F17.210 Nicotine dependence, cigarettes, uncomplicated; E86.0 Dehydration; E83.39 Other disorders of phosphorus metabolism; E66.3 Overweight; Y90.5 Blood alcohol level of 100-119 mg/100 ml; Z68.27 Body mass index [BMI] 27.0-27.9, adult; Z87.898 Personal history of other specified conditions
CPT/HCPCS: 36415; 80053; 80307; 82077; 83690; 83735; 84100; 85025; 85610; 97802; 99284; 99406; J7030; J7040; J7120; A4216; J2405

== ENCOUNTER 2021-10-13 06:05 | Observation (INO) | payer MEDICAID, SELFPAY ==
[2021-10-13 06:05] VITALS: BP 150/85; PULSE 100; RESP 18; TEMP 35.9; O2SAT 97; BMI 27.2
--- NOTE | 2021-10-13 06:17 | HP.PCM.HOS_ITS ---
HPI - General General Date of Admission: 10/13/21 Date of Service: 10/13/21 Chief Complaint: EtOH Abuse, interested in detoxification HPI Narrative The patient is a 55 y/o M w/ PMHx: Tobacco use, Anxiety and Depression/Bipolar disorder, Cannabis use, History of IVDA, recent serial presentations to [facility] for acute EtOH detoxification on 08/11/21 with return 09/05/21, 09/17/21 re- presentations for withdrawal who now re-presents to the [facility] ED on 10/13/21 with again resumption of EtOH intake since last discharge with similar 06/14 to 1 gallon vodka daily with last drink prior to ED presentation with interest again in attempting detoxification. He notes that he was recently in residential but unfortunately signed himself out and when asked why he reports stupidity. He notes he lasted and sober status for approximately a week prior to intake again. He currently lives with a girlfriend who is nonalcoholic or substance user he notes. He is amenable again to a long-term residential treatment facility especially given his serial representation for detox. Work-up in the ED included T96.7, heart rate 100, BP 150/85, respiratory rate 18, 97% on room air, pending CBC, CMP, UDS and ethyl alcohol level upon requested evaluation of patie nt. [facility] Medical History Alcohol abuse Alcohol abuse Anxiety Bipolar disorder Cannabis abuse Depression ETOH abuse H/O appendicitis Hepatitis History of intravenous drug use in remission Osteoarthritis Smoker Tobacco abuse Home Medications NK 09/05/21 [History Last Taken Unknown] Allergy/AdvReac Type Severity Reaction Status Date / Time No Known Allergies Allergy Verified 10/13/21 06:12 Family History Father Throat cancer Alcoholism and drug addiction in family other (Patient denies any marked maternal family history including heart disease, diabetes, cancer.) Surgical History (Updated 10/13/21 @ 06:[address] Renetta Hdez MD) Status post appendectomy Social History (Updated 10/13/21 @ 06:[address] Renetta Hdez MD) household members: significant other current occupational status: employed current occupation: Factory Work Smoking Status: Current every day smoker tobacco type: cigarettes Smoking packs per day: 1 Smoking cigarettes per day: 20.0 Years smoked: 38 Smoking pack-years: 38.00 alcohol intake: current alcohol intake frequency: 3 or more drinks per day details: 1/5 to 1 gallon of vodka a day substance use type: marijuana what type of physical activity do you participate in: none ROS ROS Narrative Admission Review of Systems: CONSTITUTIONAL: No weight loss, fever, chills, + weakness or fatigue. HEENT: Eyes: No visual loss, blurred vision, double vision or yellow sclerae. Ears, Nose, Throat: No hearing loss, sneezing, congestion, runny nose or sore throat. SKIN: No rash or itching, lesions, wounds. CARDIOVASCULAR: No chest pain, chest pressure or chest discomfort, palpitations, edema, orthopnea, syncopal events. RESPIRATORY: No shortness of breath, cough or sputum, wheezing, hemoptysis. GASTROINTESTINAL: No anorexia, nausea, vomiting or diarrhea, abdominal pain, melena, BRBPR. GENITOURINARY: No dysuria, frequency, urgency or retention. NEUROLOGICAL: + Mild tremors, no headache, dizziness, syncope, paralysis, ataxia, numbness or tingling in the extremities, focal weakness, change in bowel or bladder control, seizure. MUSCULOSKELETAL: No muscle, back pain, joint pain or stiffness. HEMATOLOGIC: No anemia, bleeding or bruising. LYMPHATICS: No enlarged nodes. No history of splenectomy. PSYCHIATRIC: + history of depression or anxiety. ENDOCRINOLOGIC: No reports of sweating, cold or heat intolerance. No polyuria or polydipsia. ALLERGIES: No history of asthma, hives, eczema or rhinitis. Vital Signs Vital Signs Vital Signs: 10/13/21 06:05 Temperature 96.7 F L Temperature Source Temporal Pulse Rate 100 Respiratory Rate 18 Blood Pressure 150/85 H Blood Pressure Mean 106 Pulse Ox 97 Oxygen Delivery Method Room Air Weight Weight: 190 lb Body Mass Index (BMI) 27.2 Physical Exam Narrative Physical Examination: General: Awake, alert, oriented x 3 and cooperative, seated upright in the ED bed, fatigued, mildly anxious, mildly tremulous. Skin: Normal color, normal turgor, no icterus, no cyanosis. HEENT: AT/NC, EOMI, PERRLA, mildly dry MM, no carotid bruits or JVD noted. Lungs: Diminished, greater bases, appropriate effort, no rales, ronchi or wheezing. Heart: Mildly tachycardic with rhythm; no gallop, rub audible. Abdomen: Soft, overweight, NTTP, ND, normal BS, positive HM. Extremities: No cyanosis, clubbing, or edema. Neurological: Patient awake, alert, oriented as noted, cognitive function intact; pupils equally reactive to light and accommodation, cranial nerves II- XII grossly normal, moving all 4 extremities, no focal deficits, strength preserved, mildly tremulous. Psychiatric: Affect appears anxious, tearful, history of anxiety and depression. Assessment & Plan Assessment/Plan (1) Desire for detoxification: (2) Alcoholism: PLAN: The patient is a 55 y/o M w/ PMHx: Tobacco use, Anxiety and Depression/Bipolar disorder, Cannabis use, History of IVDA, recent serial presentations to [facility] for acute EtOH detoxification on 08/11/21 with return 09/05/21, 09/17/21 re-presentations for withdrawal who now re-presents to the [facility] ED on 10/13/21 with again resumption of EtOH intake since last discharge with similar 06/14 to 1 gallon vodka daily with last drink prior to ED presentation with interest again in attempting detoxification. #1. Acute EtOH Withdrawal: Will admit to medical surgical floor, routine labs obtained in the ED upon presentation and pending upon evaluation. Given interest in sobriety, will initiate and continue on protocol with taper course of Phenobarbital, scheduled gabapentin for seizure prophylaxis, as needed Catapres, Bentyl, Vistaril, IV fluids, IV antiemetics, Tylenol as needed for pain. Will consult Case management for assistance for transition to next level of rehabilitation care. Mag, phos pending. Maintain on CIWA protocol concurrently. #2. Elevated BP without hypertensive diagnosis: Patient with elevated BP upon presentation, potentially acute with EtOH withdrawal and presentation, monitor and add oral regimen if appropriate, as needed IV hydralazine. #3. Anxiety and depression: Encourage outpatient counseling and medications if appropriate. #4. Tobacco Abuse: Encouraged cessation, inpatient consultation per RT, NR if desired. #5. Polysubstance abuse: Includes cannabis, UDS pending, encourage complete cessation especially given substance abuse history. #6. DVT prophylaxis: Low risk, encourage ambulation. Charges/Coding Visit Charges Inpatient E&M: 57320 Init Hosp L2
--- NOTE | 2021-10-13 06:21 | EDS_ITS ---
HPI History of Present Illness Chief Complaint: ETOH Intox Narrative Narrative: Patient with past medical history of hepatitis C, alcoholism, previous polysubstance abuse presents with desire for detoxification. Of note, he states that he requires residential treatment. He does admit to being here recently, 3 times in the last few months, but whenever he: Pleated his residential stay after detox in the hospital, he went back to drinking alcohol. He states he drinks approximately 1/5 a day, last drink was just prior to arrival. He denies any shakiness or other symptoms. No suicidal ideation or homicidal ideation. No hallucinations. He states he has not signed out AGAINST MEDICAL ADVICE to any of the programs or during his hospital stay. [facility] Medical History Alcohol abuse Alcohol abuse Anxiety Bipolar disorder Cannabis abuse Depression ETOH abuse H/O appendicitis Hepatitis History of intravenous drug use in remission Osteoarthritis Smoker Tobacco abuse Home Medications NK 09/05/21 [History Last Taken Unknown] Allergy/AdvReac Type Severity Reaction Status Date / Time No Known Allergies Allergy Verified 10/13/21 06:12 Family History Father Throat cancer Alcoholism and drug addiction in family Surgical History (Updated 10/13/21 @ 06:[address] Renetta Hdez MD) Status post appendectomy Social History (Updated 10/13/21 @ 06:[address] Renetta Hdez MD) household members: significant other current occupational status: employed current occupation: Factory Work Smoking Status: Current every day smoker tobacco type: cigarettes Smoking packs per day: 1 Smoking cigarettes per day: 20.0 Years smoked: 38 Smoking pack-years: 38.00 alcohol intake: current alcohol intake frequency: 3 or more drinks per day details: 1/5 to 1 gallon of vodka a day substance use type: marijuana what type of physical activity do you participate in: none ROS ROS ED ROS Narrative Constitutional: No fever, no chills. HEENT: No sore throat. No neck pain. No loss of vision. No rhinorrhea. Cardiovascular: No chest pain. No palpitations. No pedal edema. Respiratory: No cough, no shortness of breath. Abdominal: No abdominal pain. No nausea. No vomiting. Genitourinary: No dysuria. No hematuria. Musculoskeletal: No myalgias. No arthralgias. Neurologic: No headaches. No dizziness. No lightheadedness. Skin: No rash. No change in color. Psychiatric: No depression. No anxiety. No suicidal ideation. No homicidal ideation. No hallucinations. EXAM Physical Exam Narrative Exam Narrative: Afebrile. Vital signs noted. HEENT: Normocephalic. Atraumatic. PERRL, EOMI. Neck soft and supple. No point tenderness or step off. Cardiovascular: Regular rate and rhythm. No murmurs, rubs, or gallops appreciated. Respiratory: No tachypnea. Lungs clear to auscultation bilaterally. Gastrointestinal: Abdomen soft, nontender, with normoactive bowel sounds. No rebound or guarding. Neurological: Awake. Alert. Nonfocal, nonlateralizing. No active signs of withdrawal from alcohol. No tremors. Skin: No rash. Normal color. No pallor. No gooseflesh. Musculoskeletal: No pedal edema. Full range of motion extremities. Const Vital Signs: 10/13/21 06:05 Temperature 96.7 F L Temperature Source Temporal Pulse Rate 100 Respiratory Rate 18 Blood Pressure 150/85 H Blood Pressure Mean 106 Pulse Ox 97 Oxygen Delivery Method Room Air MDM MDM MDM Narrative Medical decision making narrative: I reviewed his prior records. He was seen here twice in August and admitted, and his last admission was on September 17, almost 1 month ago. I discussed the patient with Dr. Hdez for admission to [facility]. His laboratory work is currently pending. While he is borderline tachycardic at 100 bpm, he has slightly elevated blood pressure, but currently I do not see any active signs of withdrawal and he states that he had a drink prior to arrival. It was not felt that he required PCU or ICU admission. Disposition is admit in stable condition. Discharge Plan Dx/Rx/DC Orders Clinical Impression: Alcoholism, Desire for detoxification Disposition Disposition: Acute Care [facility]
[2021-10-13 06:37] LABS: Absolute Lymphocyte Count 3.63 X10^3/uL (0.83-4.51); Absolute Neutrophil Count 2.6 X10^3/uL (2.0-7.7); Basophil# 0.07 X10^3/uL; Eosinophil# 0.31 X10^3/uL; Eosinophils% 4.3 % (0-5); Hematocrit 47.4 % (40-54); Hemoglobin 16.7 g/dL (13.0-16.5); Lymphocyte # 3.63 X10^3/ul (0.83-4.51); Lymphocyte % 50.3 % (19-41); Mean Corp Hgb Conc 35.2 g/dL (32-36); Mean Corpuscular Hgb 34.8 pg (27.0-32.0); Mean Corpuscular Volume 98.8 fL (80-94); Mean Platelet Vol. 10.2 fl (6.2-12.0); Monocyte# 0.62 X10^3/uL; Monocyte% 8.6 % (0-10); NRBC Flagged by Analyzer 0 % (0-5); Neutrophil # 2.58 X10^3/uL (2.7-7.7); Neutrophil % 35.7 % (47-70); Platelet Count 216 K/mm3 (150-450); RBC Distribution Width CV 11.3 % (11.6-14.6); RBC Distribution Width SD 41.6 fl (35.1-43.9); White Blood Count 7.2 K/mm3 (4.4-11.0)
[2021-10-13 06:54] LABS: ALB/GLOB Ratio 0.9 RATIO (0.9-2.4); AST(SGOT) 62 U/L (15-37); Alanine Aminotransfer ALT/SGPT 51 U/L (16-61); Albumin, Serum 3.5 g/dL (3.2-5.0); Alkaline Phosphatase 91 U/L (45-117); Anion Gap 10 (5-15); BUN 5 mg/dL (7-18); BUN/Creat Ratio 5.8 RATIO (10-20); Calcium,Total 8.3 mg/dL (8.5-10.1); Chloride 109 mmol/L (98-107); Creatinine, Serum 0.86 mg/dL (0.70-1.30); EST Glomerular Filtration Rate 98 mL/min (>60); Est Glom Filt Rate - Afr Amer 118 mL/min (>60); Estimated Creatinine Clearance 101.39 ml/min; Globulin 3.9 g/dL (2.2-4.2); Glucose 134 mg/dL (74-106); Magnesium 1.7 mg/dL (1.6-2.6); Potassium 3.1 mmol/L (3.5-5.1); Protein, Total 7.4 g/dL (6.4-8.2); Sodium Level 144 mmol/L (136-145)
[2021-10-13 07:00] LABS: Amphetamine Urine VISTA NEGATIVE (<1000 ng/mL); Barbiturate Urine VISTA POSITIVE (< 200 ng/mL); Benzodiazepine Urine VISTA NEGATIVE (< 200 ng/mL); Cocaine Urine VISTA NEGATIVE (< 300 ng/mL); Ecstacy Urine VISTA NEGATIVE (< 500 ng/mL); Methadone Urine VISTA NEGATIVE (< 300 ng/mL); PCP Urine VISTA NEGATIVE (< 25 ng/mL); THC Urine VISTA NEGATIVE (< 50 ng/mL); Vista UDS pH Range 6
[2021-10-13 07:01] LABS: Phosphorus 2.1 mg/dL (2.5-4.9)
[2021-10-13 07:09] VITALS: BP 147/82; PULSE 104; RESP 17; TEMP 36.2; O2SAT 98
[2021-10-13 07:43] VITALS: BP 121/84; PULSE 87; RESP 18; TEMP 36.6; O2SAT 95
[2021-10-13 07:50] VITALS: BMI 26.6
[2021-10-13] MEDS: Lactated Ringers 1,000 ML 125 ML IV (09:11)
[2021-10-13] MEDS: Folic Acid 1 MG Tablet PO (09:12)
[2021-10-13] MEDS: Ondansetron 8 MG Tablet PO (09:12)
[2021-10-13] MEDS: Phenobarbital 32.4 MG Tablet 97.2 MG PO (09:12)
[2021-10-13] MEDS: Thiamine Hydrochloride 100 MG Tablet PO (09:12)
--- NOTE | 2021-10-13 09:17 | CASEMGMT ---
PAULINO called Ananda, engineering technical specialist at [facility] and notified her of patient's admission. Alicia Curiel HAND REAMER ROSALBA
--- NOTE | 2021-10-13 11:06 | ADDICTION ---
This newspaper writer met with PT to conduct ASAM, MSE, AUDIT assessments and to plan for d/c. PT A+Ox4 and participated actively. All assessments completed and placed in PT's chart. PT plans to f/u with [facility] for residential treatment services. [facility] will provide transportation post d/c from [facility]. They will pick keesha ip Sunday 10/15 @ 1:00pm.
--- NOTE | 2021-10-13 11:44 | PCM.PN.BLA ---
Assessment & Plan Assessment/Plan (1) Desire for detoxification: (2) Alcoholism: PLAN: 1. Acute alcohol withdrawal/anxiety/depression/tobacco abuse/polysubstance abuse ? Continue with the alcohol withdrawal protocol ? We will replace his phosphorus and his potassium and recheck in the morning ? Do recommend outpatient monitoring for his anxiety and depression as medication should likely be started given how frequently he has presented for withdrawal-like symptoms ? We will consult 180 for follow-up and outpatient management versus inpatient management ? Encouraged tobacco cessation ? Encourage cessation of other drug use 2. Elevated BP, does not have a history of hypertension. Unlikely to benefit from starting medications at this time as it is likely secondary to his withdrawal symptoms DVT: Ambulation
--- NOTE | 2021-10-13 12:02 | NURSING ---
Pt requests to leave AMA. Pt signs AMA papers, belongings given to pt and IV angiocath removed and intact.
--- NOTE | 2021-10-13 12:12 | NURSING ---
Reviewed charting with Sarbjit Beck RN
--- NOTE | 2021-10-31 10:28 | ADDICTION ---
Due to pt not following through with treatment and leaving AMA he will be ineligible for RAMP unless he commits to residential. If he does not complete rsidential treatment or leaves the hospital AMA he will no longer be eligible for the RAMP program.
== END 2021-10-13 12:00 | disposition left against medical advice (07) | DRG 770 ==
LOC: ED 06:25 → PCU 06:49
PROVIDERS: Admitting Provider Family Medicine; Emergency Provider Emergency Medicine; Visit Provider Family Medicine
DX: F10.229 Alcohol dependence with intoxication, unspecified (principal); F10.239 Alcohol dependence with withdrawal, unspecified; F31.9 Bipolar disorder, unspecified; F12.10 Cannabis abuse, uncomplicated; F17.210 Nicotine dependence, cigarettes, uncomplicated; Y90.9 Presence of alcohol in blood, level not specified; R03.0 Elevated blood-pressure reading, without diagnosis of hypertension; Z86.19 Personal history of other infectious and parasitic diseases; M19.90 Unspecified osteoarthritis, unspecified site; F41.9 Anxiety disorder, unspecified
CPT/HCPCS: 80053; 80307; 82077; 83735; 84100; 85025; 96360; 96361; 97802; 99218; 99283; J7120; G0378

== ENCOUNTER 2021-10-31 17:01 | Inpatient (IN) | payer MEDICAID, SELFPAY ==
[2021-10-31 17:02] VITALS: BP 145/100; PULSE 106; RESP 14; TEMP 35.6; O2SAT 91; BMI 27.2
--- NOTE | 2021-10-31 17:20 | EX.ED.SAOD ---
HPI History of Present Illness Chief Complaint: ETOH Intox Detail of Chief Complaint: Requesting detox from alcohol Informant: patient Narrative Narrative: Patient presents to the emergency department requesting detox from alcohol. Patient normally drinks liquor and about 1/5 of a bottle per day. Patient is unsure when the last time he went through detox. His last drink was earlier today. Patient denies recent illness. He has had no vomiting. No seizure history. Patient does have history of bipolar disorder and hepatitis C. Prior similar symptoms: Yes PFSH PFSH Medical History Alcohol abuse Alcohol abuse Anxiety Bipolar disorder Cannabis abuse Depression ETOH abuse H/O appendicitis Hepatitis History of intravenous drug use in remission Osteoarthritis Smoker Tobacco abuse Home Medications NK 09/05/21 [History Last Taken Unknown] Allergy/AdvReac Type Severity Reaction Status Date / Time No Known Allergies Allergy Verified 10/31/21 17:02 Family History (Updated 10/31/21 @ 17:56 by Elissa Alfred NP, ANIMAL CARETAKER SUPERVISOR-C) Father Throat cancer Alcoholism and drug addiction in family Mother No cardiac disease Surgical History Status post appendectomy Social History household members: significant other current occupational status: employed current occupation: Factory Work Smoking Status: Current every day smoker tobacco type: cigarettes alcohol intake: current alcohol intake frequency: 3 or more drinks per day details: 1/5 to 1 gallon of vodka a day substance use type: marijuana what type of physical activity do you participate in: none ROS ROS ED Constitutional Constitutional ED: Reports systems reviewed and no addt'l complaints, except as documented; Denies body ache(s), change in weight or chills Eyes Eyes: Denies acute decrease in peripheral vision, change in vision, double vision or loss of vision ENT ENT ED: Reports none; Denies ear pain, lip swelling, loss taste/smell, neck pain, otalgia or sore throat Cardiovascular Cardiovascular: Reports none; Denies abdominal pain, chest pain with activity, leg edema, lightheadedness, palpitations, rapid heart rate or syncope Respiratory/Chest Respiratory/Chest: Reports none; Denies change in mental status, dry cough, dyspnea, hemoptysis, shortness of breath at rest or shortness of breath with exertion Gastrointestinal Gastrointestinal: Reports none; Denies abdominal pain, change in stool character, diarrhea, hematemesis, hematochezia, melena, rectal bleeding or vomiting Genitourinary Genitourinary ED: Reports none; Denies abdominal discomfort, anuria, dysuria, genital pain or polyuria Musculoskeletal Musculoskeletal: Reports none; Denies arthralgias, back pain, difficulty walking, extremity pain, muscle weakness or myalgias Integumentary Reports none; Denies abscess or rash Neurologic Neurologic: Reports none; Denies abnormal gait, confusion, focal weakness, frequent falls, headache(s), loss of vision, numbness, paresthesias, radicular pain, vertigo or weakness Psychiatric Psychiatric: Reports systems reviewed and no addt'l complaints, except as documented and none; Denies behavioral changes, confusion, difficulty concentrating, hallucinations, suicidal ideation, tactile hallucinations or visual hallucinations Endocrine Endocrinology: Denies none, cold intolerance, excessive sweating, fatigue or heat intolerance Hematologic/Lymphatic Hematologic/Lymphatic: Reports none; Denies anemia, easy bleeding or easy bruising Allergic/Immunologic Allergic/Immunologic ED: Denies as per HPI, none, lip swelling, mouth swelling, throat swelling, tongue swelling or hives EXAM Physical Exam Const Vital Signs: 10/31/21 17:02 Temperature 96.1 F L Temperature Source Temporal Pulse Rate 106 H Respiratory Rate 14 Blood Pressure 145/100 H Blood Pressure Mean 115 Pulse Ox 91 Oxygen Delivery Method Room Air Positive well nourished and well developed General Appearance ED: well developed and NAD HEENT Reports TM's clear and moist mucous membranes normocephalic and atraumatic; Negative for trauma or tenderness Tympanic Membrane ED: Yes TM's clear Eyes PERRL and EOMs intact bilaterally General Eye ED: Negative for pale conjunctiva or scleral icterus Neck no lymphadenopathy, supple and no JVD General: Negative for tenderness Chest Wall inspection of chest normal and palpation of chest normal Chest: Negative for tenderness Resp normal respiratory effort and clear to auscultation bilaterally Effort and Inspection: Negative for respiratory distress or pain with movement Auscultation: Negative for rhonchi, wheezes or diminished lung sounds Cardio regular rate, regular rhythm, S1 normal heart sound, S2 normal heart sound and no murmurs Peripheral Pulses: pulses 2+ throughout GI normal to inspection, nondistended, normoactive bowel sounds, soft to palpation, non-tender, non-distended and no masses Back/Spine no CVA tenderness and no thoracic nor lumbar tenderness Extremity normal to inspection General Extremety ED: Negative for edema General Extremity: Negative for edema Neuro oriented x3, CN's II-XII intact bilaterally, no sensory deficits noted and gait normal Sensorium / Orientation: awake, alert, oriented to person, oriented to place and oriented to time Motor Exam: strength 5/5 throughout and strength abnormal Psych mental status grossly normal Skin no rashes or lesions noted and no wounds MDM MDM MDM Narrative Medical decision making narrative: IV line established on arrival. Patient was given 2 mg of Ativan as he was somewhat agitated and would not sit in his room. Case discussed with hospitalist will evaluate patient for admission. Patient also told the hospitalist that he was feeling suicidal and has a plan on putting some cement to his feet and jumping off a bridge. Patient will be admitted for alcohol detox and evaluation by crisis once he is medically cleared. Lab Data Attestation: I reviewed the patient's lab results. Labs: Laboratory Results - last 24 hr 10/31/21 17:30 Ur Drug Screen Comment Discharge Plan Triage Chief Complaint: ETOH Intox ED Provider: Ange Howe Dx/Rx/DC Orders Primary Care Provider: Care Physician,No Primary
[2021-10-31] MEDS: 0.9% Normal Saline 1,000 ML 150 ML IV (17:40)
[2021-10-31 17:43] LABS: Absolute Lymphocyte Count 6.13 X10^3/uL (0.83-4.51); Basophil# 0.06 X10^3/uL; Basophil% 0.7 % (0-1); Eosinophil# 0.39 X10^3/uL; Eosinophils% 4.3 % (0-5); Hematocrit 44.6 % (40-54); Hemoglobin 15.9 g/dL (13.0-16.5); Lymphocyte # 6.13 X10^3/ul (0.83-4.51); Lymphocyte % 67.1 % (19-41); Mean Corp Hgb Conc 35.7 g/dL (32-36); Mean Corpuscular Hgb 34.9 pg (27.0-32.0); Mean Corpuscular Volume 97.8 fL (80-94); Mean Platelet Vol. 9.6 fl (6.2-12.0); Monocyte# 0.54 X10^3/uL; Monocyte% 5.9 % (0-10); NRBC Flagged by Analyzer 0 % (0-5); Neutrophil % 21.9 % (47-70); POSITIVE DIFFERENTIAL YES; POSITIVE MORPHOLOGY YES; Platelet Count 226 K/mm3 (150-450); RBC Distribution Width CV 11.7 % (11.6-14.6); RBC Distribution Width SD 42.1 fl (35.1-43.9); Red Blood Count 4.56 M/mm3 (4.6-6.2); White Blood Count 9.1 K/mm3 (4.4-11.0)
--- NOTE | 2021-10-31 17:49 | HP.PCM.HOS_ITS ---
Documented by User: Elissa Alfred NP, STRAIGHT LINE PRESS SETTER-C 10/31/21 18:05 HPI - General General Date of Admission: 10/31/21 HPI Narrative CORY RODRIGES, is a 55 M who presents to the emergency room requesting detox from alcohol. Patient has had 4 admissions this year for the same. He does not know when he was last in detox however per records, he was admitted 10/13/2021 requesting alcohol detox and signed out AGAINST MEDICAL ADVICE. Patient's labs pending at time of exam however appears intoxicated, slurring words. He states he typically drinks 1/5 of vodka a day. Last drink earlier today. Reports occasional marijuana use. Denies other drug use. Reports a previous history of IV drug use however states he has not used IV drugs since 2017. His other past medical history includes high blood pressure, anxiety, depression, tobacco dependence, hepatitis C with history of IV drug use. Patient states I think I have mental health issues. Asked patient what he meant by this and he states he has been depressed. Asked patient directly if he has any suicidal thoughts and he states he has been having bad thoughts. Patient was asked if he has a plan and he states yes however he would not verbalize plan and states he does not want put in a mental institution or locked in a room. Patient then states I am fine and is not forthcoming regarding further information. [facility] Medical History Alcohol abuse Alcohol abuse Anxiety Bipolar disorder Cannabis abuse Depression ETOH abuse H/O appendicitis Hepatitis History of intravenous drug use in remission Osteoarthritis Smoker Tobacco abuse Home Medications NK 09/05/21 [History Last Taken Unknown] Allergy/AdvReac Type Severity Reaction Status Date / Time No Known Allergies Allergy Verified 10/31/21 17:02 Family History Father Throat cancer Alcoholism and drug addiction in family Mother No cardiac disease Surgical History Status post appendectomy Social History (Updated 10/31/21 @ 18:[address] Shala Ortega DO) household members: significant other current occupational status: employed current occupation: Factory Work Smoking Status: Current every day smoker tobacco type: cigarettes Smoking packs per day: 1 Smoking cigarettes per day: 20.0 alcohol intake: current alcohol intake frequency: 3 or more drinks per day details: 1/5 of vodka a day substance use type: former substance user Date of last use: Early and marijuana what type of physical activity do you participate in: none ROS Constitutional Constitutional: Denies change in weight, chills, fatigue, fever(s) or weakness Cardiovascular Cardiovascular: Denies chest pain, edema, lightheadedness, palpitations or syncope Respiratory/Chest Respiratory/Chest: Denies cough, dyspnea, productive cough, shortness of breath at rest, shortness of breath with exertion or wheezing Gastrointestinal Gastrointestinal: Denies abdominal pain, constipation, diarrhea, nausea or vomiting Genitourinary Genitourinary: Denies burning urination, difficulty urinating, dysuria, hematu per, urinary frequency, urinary incontinence or urinary urgency Musculoskeletal Musculoskeletal: Denies back pain, joint pain or muscle weakness Integumentary Integumentary: Denies erythema, lesions, rash or wounds Neurologic Neurologic: Denies abnormal speech, confusion, dizziness, focal weakness, numbness, paresthesias, seizure-like activity or syncope Psychiatric Psychiatric: Denies anxiety or depression Hematologic/Lymphatic Hematologic/Lymphatic: Denies anemia, easy bleeding or easy bruising Allergic/Immunologic Allergic/Immunologic: Denies hives or asthma Vital Signs Vital Signs Vital Signs: 10/31/21 17:02 Temperature 96.1 F L Temperature Source Temporal Pulse Rate 106 H Respiratory Rate 14 Blood Pressure 145/100 H Blood Pressure Mean 115 Pulse Ox 91 Oxygen Delivery Method Room Air Weight Weight: 190 lb Body Mass Index (BMI) 27.2 Physical Exam Const alert, oriented x3 and no apparent distress Constitutional Narrative: Appears intoxicated, slurred speech. Squinting eyes. Smells strongly of alcohol. Orientation / Consciousness: awake, oriented to person, oriented to place and oriented to time HEENT normocephalic Mouth: dry mucous membranes Eyes PERRL, EOMs intact bilaterally and conjunctivae normal Neck no lymphadenopathy Resp normal respiratory effort and clear to auscultation bilaterally Cardio regular rate, regular rhythm and no murmurs Peripheral Pulses: pulses 2+ throughout GI normal to inspection, nondistended, normoactive bowel sounds, non-tender and non-distended Extremity normal to inspection Skin no rashes or lesions noted Lesions: no lesions Rashes: no rashes Trauma: no lacerations or abrasions Neuro CN's II-XII intact bilaterally, no focal motor deficits, no sensory deficits noted and deep tendon reflexes 2+ bilaterally Psych mental status grossly normal Mood & Affect: depressed and anxious Results Lab / Micro Data Result Diagrams: 10/31/21 17:30 10/31/21 17:30 Labs: Laboratory Results - last 24 hr 10/31/21 17:30: Ur Drug Screen Comment Assessment & Plan Assessment/Plan (1) Alcoholism: (2) Desire for detoxification: PLAN: 1. Acute alcohol intoxication, impending withdrawal with chronic alcohol abuse-medical stabilization per protocol. Phenobarbital taper. CIWA/Ativan protocol. As needed regimen for somatic complaints. Addiction medicine consult. Patient agreed to inpatient treatment following medical stabilization as he has had recurrent admissions/AMA sign out. 2. Suicidal thoughts-patient admitted to suicidal thoughts with plan however would did not further communicate stating I do not want to be put in a mental institution or locked in a room. Sitter for safety. Crisis consult. Patient later told physician as well that he is suicidal with plan to d[place] himself in [place]. [place] slip signed. 3. Hypertension, untreated-as needed hydralazine for systolic blood pressure greater than 160. May need initiated on oral regimen pending further blood pr essure monitoring. 4. Anxiety/depression-not on regimen. Suicidal as noted above. Mental health/ crisis consulted. 5. Tobacco dependence-encourage cessation. Nicotine replacement patch. 6. Hepatitis C/history of IV drug use-denies recent IV drug use. Outpatient follow-up for hepatitis C. DVT prophylaxis-not indicated This patient was seen by Elissa Alfred NP-C under the supervision of Dr. Ortega. Documented by User: Dr. Shala Ortega DO 10/31/21 18:44 HPI - General General Date of Admission: 10/31/21 HPI Narrative This patient was seen in conjunction with Elissa Alfred NP. The following represents my independent history and physical examination. Please see below for addendum the above. Mr. Rodriges is a 55-year-old white male who has been admitted multiple times in the last calendar year for alcohol detox. His most recent admission was early in October at which time he signed out AGAINST MEDICAL ADVICE. There is documentation today from addiction medicine that the patient needs to be admitted to an inpatient rehabilitation program at discharge and if he does not or signed out AGAINST MEDICAL ADVICE he will no longer be a candidate for admission to the rehab program. The patient is agreeable to inpatient rehabilitation program at discharge and therefore will be admitted. The patient indicates he is currently drinking approximately fifth of vodka a day and his last drink was just prior to admission. He has a long history of alcohol abuse and has not maintained any lengthy period of sobriety despite multiple attempts. At his last admission inpatient admission had been arranged and transport had been scheduled however the patient did sign out AGAINST MEDICAL ADVICE prior to the discharge taking place. The patient is currently asymptomatic but appears to be intoxicated. During my exam he is markedly tearful and admits to suicidal ideation with a plan. He indicated that he had plan to go to [facility] and tie a cement block around his leg jump and and given the fact that he is unable to swim drown himself. He is quite tearful during my exam and states he knows it is not okay but these of the feelings and thoughts that he is having and has been having them for some time now. Vital signs emergency department show a temperature of 98.3 heart rate of 106, blood pressure of 145/100 with a repeat at 122/72, respiratory rate of 14 and oxygen saturation 98% on room air. His CBC is overall unremarkable. His CMP is unremarkable with mild AST elevation at 49. His toxicology and off alcohol le kal were pending on admission. The patient did admit to recent cannabis use and alcohol consumption. He was admitted to the medical floor and started on a phenobarbital taper with thiamine and folate as well as supportive medications and 1 AT was consulted. He will also have a sitter secondary to suicidal ideation and a crisis consult has been placed. [facility] Medical History Alcohol abuse Alcohol abuse Anxiety Bipolar disorder Cannabis abuse Depression ETOH abuse H/O appendicitis Hepatitis History of intravenous drug use in remission Osteoarthritis Smoker Tobacco abuse Home Medications NK 09/05/21 [History Last Taken Unknown] Allergy/AdvReac Type Severity Reaction Status Date / Time No Known Allergies Allergy Verified 10/31/21 17:02 Family History Father Throat cancer Alcoholism and drug addiction in family Mother No cardiac disease Surgical History Status post appendectomy Social History (Updated 10/31/21 @ 18:[address] Shala Ortega DO) household members: significant other current occupational status: employed current occupation: Factory Work Smoking Status: Current every day smoker tobacco type: cigarettes Smoking packs per day: 1 Smoking cigarettes per day: 20.0 alcohol intake: current alcohol intake frequency: 3 or more drinks per day details: 1/5 of vodka a day substance use type: former substance user Date of last use: Early and marijuana what type of physical activity do you participate in: none ROS Constitutional Constitutional: Denies anorexia, change in weight, chills, fatigue, fever(s), malaise, night sweats, weakness or other Eyes Eyes: Denies blurry vision, change in eye color, change in vision, discharge fro m eye(s), double vision, erythema, eye pain, loss of vision or other ENT HEENT: Denies abnormal hearing, dysphagia, ear pain, epistaxis, headache(s), hearing loss, nasal congestion, nasal discharge, post nasal drip, sinus press ure, sore throat or other Cardiovascular Cardiovascular: Denies chest pain, claudication, dyspnea on exertion, edema, lightheadedness, orthopnea, palpitations, paroxysmal nocturnal dyspnea, rapid heart rate, syncope or other Respiratory/Chest Respiratory/Chest: Denies cough, dyspnea, excessive phlegm production, hemoptysis, productive cough, shortness of breath at rest, shortness of breath with exertion, wheezing or other Gastrointestinal Gastrointestinal: Reports nausea; Denies abdominal pain, coffee ground emesis, constipation, diarrhea, dyspepsia, hematemesis, hematochezia, loose stools, melena, vomiting or other Genitourinary Genitourinary: Denies burning urination, difficulty urinating, dysuria, hematuria, nocturia, urinary frequency, urinary hesitancy, urinary incontinence, urinary urgency or other Musculoskeletal Musculoskeletal: Denies arthralgias, back pain, joint pain, joint stiffness, shara int swelling, myalgias, neck pain or other Neurologic Neurologic: Denies abnormal gait, abnormal speech, confusion, disequilibrium, dizziness, focal weakness, headache(s), numbness, paresthesias, seizure-like activity, seizures, syncope, tingling, tremor(s) or other Psychiatric Psychiatric: Reports anxiety, depression and suicidal ideation; Denies homicidal ideation or other Endocrine Endocrinology: Denies change in body appearance, cold intolerance, excessive sweating, heat intolerance, polydipsia, polyuria or other Hematologic/Lymphatic Hematologic/Lymphatic: Denies anemia, easy bleeding, easy bruising, lymphadenopathy or other Allergic/Immunologic Allergic/Immunologic: Denies rhinitis, hives, eczemia, asthma or other Physical Exam Const alert and oriented x3 Constitutional Narrative: Middle-aged white male sitting up in bed, visibly drunk however appropriately interactive, tearful at times and seems very dep ressed, no physical distress but patient is in obvious mental anguish General Appearance: cooperative HEENT normocephalic, head/scalp atraumatic, hearing grossly normal bilaterally and moist oral mucous membranes HEENT Narrative: Dentition is fair, Mallampati is 2, no thrush Eyes PERRL, EOMs intact bilaterally and conjunctivae normal Eyes Narrative: Scleral injection, no scleral icterus Neck no lymphadenopathy, supple and no JVD Neck Narrative: Trachea midline, no thyroid enlargement Resp normal respiratory effort, no retractions, no use of accessory muscles and clear to auscultation bilaterally Resp Narrative: Diffusely diminished but clear Auscultation: Negative for crackles, rales, rhonchi or wheezes Cardio regular rate, regular rhythm, S1 normal heart sound, S2 normal heart sound, no murmurs, no rub, no gallops, no clicks and no JVD GI normal to inspection, nondistended, normoactive bowel sounds, soft to palpation and non-distended Palpation: tender other (Mild diffuse tenderness without any focal point tenderness) Extremity no clubbing, cyanosis or edema Peripheral Pulses: Yes pulses 2+ throughout Skin no rashes or lesions noted, no wounds, skin turgor normal, no jaundice, no petechiae and no mottling Neuro oriented x3, CN's II-XII intact bilaterally, moves all extremities and no focal motor deficits Sensorium / Orientation: awake and alert Speech: speech normal Motor Exam: strength 5/5 throughout Psych Psych Narrative: Mood is very labile, patient appears depressed and tearful during my exam, indicates he has a suicidal plan Results Lab / Micro Data Attestation: I reviewed the patient's lab results. Result Diagrams: 10/31/21 17:30 10/31/21 17:30 Assessment & Plan Assessment/Plan (1) Alcoholism: (2) Desire for detoxification: (3) Depression with suicidal ideation: PLAN: Acute alcohol withdrawal -Patient has had 5 admissions this calendar year for alcohol detox -Patient must enter inpatient rehab alcohol treatment program at discharge or he will be banned from the rehab program -Drinks about 1/5 of vodka a day -Indicates has been drinking almost all of his life -Start phenobarbital taper -Start thiamine and folate -supportive medications for symptom management -180 consultation Suicidal ideation -Sitter at bedside -Crisis consultation -Patient indicates he has been suicidal and severely depressed -Had a plan to attach a cement block to his leg and throw himself in [place] as he is unable to swim -Patient has been pink slipped -[place] discharge plan would be to a place where he could be treated psychiatrically as well as for his alcohol issues History of hepatitis C -Resulted from IV drug use -Would like to be treated once he is sober -Patient has been interested in treatment for this in the past however we did discuss that he will need to be sober prior to initiation -Make referral to GI after discharge and outpatient follow-up Tobacco abuse -Currently smokes approximately 1 pack of cigarettes daily -Continue patch available -Recommend cessation History of polysubstance abuse -IVDU with fentanyl and heroin remotely -Patient has not used since the early 1999 Intermittent THC use -Recommend cessation -Last use was reported approximately 1 month ago DVT prophylaxis -Low risk -Early ambulation CODE STATUS -Full code Charges/Coding Visit Charges Inpatient E&M: 24231 Init Hosp L3
[2021-10-31] MEDS: LORazepam 2 MG/ML Syringe IV (17:51)
[2021-10-31 17:54] VITALS: BP 122/72; PULSE 93; RESP 16; TEMP 36.8; O2SAT 98
[2021-10-31 18:01] LABS: ALB/GLOB Ratio 0.9 RATIO (0.9-2.4); AST(SGOT) 49 U/L (15-37); Alanine Aminotransfer ALT/SGPT 52 U/L (16-61); Albumin, Serum 3.7 g/dL (3.2-5.0); Alkaline Phosphatase 96 U/L (45-117); Anion Gap 7 (5-15); BUN 7 mg/dL (7-18); BUN/Creat Ratio 8.6 RATIO (10-20); Calcium,Total 8.6 mg/dL (8.5-10.1); Chloride 105 mmol/L (98-107); Creatinine, Serum 0.82 mg/dL (0.70-1.30); EST Glomerular Filtration Rate 104 mL/min (>60); Est Glom Filt Rate - Afr Amer 126 mL/min (>60); Estimated Creatinine Clearance 106.33 ml/min; Globulin 4.1 g/dL (2.2-4.2); Glucose 105 mg/dL (74-106); Potassium 4.1 mmol/L (3.5-5.1); Protein, Total 7.8 g/dL (6.4-8.2); Sodium Level 139 mmol/L (136-145)
[2021-10-31 18:08] LABS: Differential Indicated SCAN CRITERIA MET
[2021-10-31 18:10] LABS: Anisocytosis 1+; Atypical Lymphocyte 2+ %; Macrocytosis 1+; Platelet Estimate ADEQUATE (ADEQ); Red Cell Morphology N CHROM NORMAL (NORM C&C)
[2021-10-31 18:14] VITALS: BMI 27.1
[2021-10-31 18:29] VITALS: BP 103/45; PULSE 86; RESP 16; RESP 18; TEMP 36.6; O2SAT 96
[2021-10-31] MEDS: Phenobarbital 32.4 MG Tablet 64.8 MG PO ×2 (19:01→23:13)
[2021-10-31] MEDS: Dicyclomine 10 MG Capsule 20 MG PO (19:02)
[2021-10-31 20:42] LABS: Amphetamine Urine VISTA NEGATIVE (<1000 ng/mL); Barbiturate Urine VISTA POSITIVE (< 200 ng/mL); Benzodiazepine Urine VISTA NEGATIVE (< 200 ng/mL); Cocaine Urine VISTA POSITIVE (< 300 ng/mL); Ecstacy Urine VISTA NEGATIVE (< 500 ng/mL); Methadone Urine VISTA NEGATIVE (< 300 ng/mL); PCP Urine VISTA NEGATIVE (< 25 ng/mL); THC Urine VISTA NEGATIVE (< 50 ng/mL); Vista UDS pH Range 7
[2021-10-31] MEDS: Gabapentin 300 MG Capsule PO (20:48)
[2021-10-31] MEDS: Ondansetron 8 MG Tablet PO (20:48)
[2021-10-31] MEDS: Acetaminophen 325 MG Tablet 650 MG PO (20:48)
[2021-10-31] MEDS: hydrOXYzine PAM 25 MG Capsule 50 MG PO (20:48)
[2021-10-31 22:00] VITALS: O2SAT 95
[2021-10-31 23:10] VITALS: BP 84/63; PULSE 85; RESP 18; TEMP 36.6
[2021-10-31] MEDS: traZODone 100 MG Tablet PO (23:13)
[2021-11-01] VITALS (8 sets, daily range): BP systolic 80–117; BP diastolic 41–82; PULSE 73–107; RESP 16–18; TEMP 36.4–37.5; O2SAT 91–98
[2021-11-01] MEDS: Phenobarbital 32.4 MG Tablet 64.8 MG PO ×6 (02:28→22:15)
[2021-11-01] MEDS: Ondansetron 8 MG Tablet PO (10:13)
[2021-11-01] MEDS: Folic Acid 1 MG Tablet PO (10:16)
[2021-11-01] MEDS: Thiamine Hydrochloride 100 MG Tablet PO (10:17)
--- NOTE | 2021-11-01 10:44 | CASEMGMT ---
Addendum entered by Dorota Lerma 11/01/21 13:51: Social Work Follow up call placed to Crisis. Crisis did state they received referral and will be over to see pt. Crisis requesting new alcohol level on pt. Nursing updated and will reach out to physician. JIAN Chris Original Note: Social Work Pt admitted to [facility] program for alcohol detox. While in ED pt expressed suicidal ideations to physician. Physician pink slipped and requested referral to Crisis. Physician stating pt is medically cleared at this time. Referral made to Radha at Crisis and information faxed. Radha will review information and notify SW of time of visit. JIAN Chris
--- NOTE | 2021-11-01 11:17 | PCM.PN.HOSP ---
Documented by User: Elissa Alfred NP, RETURNS SUPERVISOR-C 11/01/21 11:24 Subjective Subjective Patient seen and examined. Reports tremors and feeling hot/cold. Denies other withdrawal symptoms. Denies current suicidal thoughts or ideations. Sitter at bedside. Awaiting crisis eval. Objective Data Objective Data Vital Signs: Vital Signs Temp Pulse Resp BP Pulse Ox 98.8 F 97 18 107/62 95 11/01/21 10:09 11/01/21 10:09 11/01/21 10:09 11/01/21 10:09 11/01/21 10:09 Oxygen Delivery Method Room Air Weight: 189 lb 6.033 oz Body Mass Index (BMI) 27.1 Intake & Output: Intake and Output for Last 24 Hours 10/30/21 10/31/21 11/01/21 23:59 23:59 23:59 Intake Total 200 / 900 700 / 700 Output Total 0 / 0 Balance 200 / 900 700 / 700 Lab / Micro Data Result Diagrams: 10/31/21 17:30 10/31/21 17:30 Labs: Laboratory Results - last 24 hr 10/31/21 17:30: WBC 9.1, RBC 4.56 L, Hgb 15.9, Hct 44.6, MCV 97.8 H, MCH 34.9 H, MCHC 35.7, RDW Std Deviation 42.1, RDW Coeff of [place] 11.7, Plt Count 226, MPV 9.6, Immature Gran % (Auto) 0.100, Neut % (Auto) 21.9 L, Lymph % (Auto) 67.1 H, [place] % (Auto) 5.9, Eos % (Auto) 4.3, Baso % (Auto) 0.7, Absolute Neuts (auto) 2.0, Absolute Lymphs (auto) 6.13 H, Nucleated RBC % 0, Differential Comment SEE COMMENT, Diff Path Review May foll, Atypical Lymphocytes 2+, Platelet Estimate ADEQUATE, RBC Morphology N CHROM, Anisocytosis 1+, Macrocytosis 1+ 10/31/21 17:30: Sodium 139, Potassium 4.1, Chloride 105, Carbon Dioxide 27.0, Anion Gap 7, BUN 7, Creatinine 0.82, Estim Creat Clear Calc 106.33, Est GFR (MDRD) Af Amer 126, Est GFR (MDRD) Non-Af 104, BUN/Creatinine Ratio 8.6 L, Glucose 105, Calcium 8.6, Total Bilirubin 0.70, AST 49 H, ALT 52, Alkaline Phosphatase 96, Total Protein 7.8, Albumin 3.7, Globulin 4.1, Albumin/Globulin Ratio 0.9 10/31/21 17:30: Ethyl Alcohol 312.0 H* 10/31/21 17:30: Urine Opiates Screen NEGATIVE, Urine Methadone Screen NEGATIVE, Ur Barbiturates Screen POSITIVE H, Ur Phencyclidine Scrn NEGATIVE, Ur Amphetamines Screen NEGATIVE, MDMA (Ecstasy) Screen NEGATIVE, U Benzodiazepines Scrn NEGATIVE, Urine Cocaine Screen POSITIVE H, U Cannabinoids Screen NEGATIVE, Ur Drug Screen Comment Physical Exam Const alert and oriented x3 Orientation / Consciousness: awake, oriented to person, oriented to place and oriented to time HEENT normocephalic Mouth: dry mucous membranes Eyes PERRL, EOMs intact bilaterally and conjunctivae normal Neck no lymphadenopathy Resp normal respiratory effort and clear to auscultation bilaterally Cardio regular rate, regular rhythm and no murmurs Peripheral Pulses: pulses 2+ throughout GI normal to inspection, nondistended, normoactive bowel sounds, non-tender and non-distended Extremity normal to inspection Skin no rashes or lesions noted Lesions: no lesions Rashes: no rashes Trauma: no lacerations or abrasions Neuro CN's II-XII intact bilaterally, no focal motor deficits, no sensory deficits noted and deep tendon reflexes 2+ bilaterally Psych Mood & Affect: depressed and flat affect Assessment & Plan Assessment/Plan (1) Depression with suicidal ideation: (2) Alcoholism: (3) Desire for detoxification: PLAN: 1. Acute alcohol withdrawal with chronic alcohol abuse/polysubstance abuse-medical stabilization per protocol. Phenobarbital taper. CIWA/Ativan protocol. As needed regimen for somatic complaints. Addiction medicine consult. Patient agreed to inpatient treatment following medical stabilization as he has had recurrent admissions/AMA sign out. Tox screen positive for cocaine, barbiturates, alcohol level 312 on admission. 2. Suicidal thoughts/ideation-patient admitted to suicidal thoughts with specific plan in ED. This a.m. denies active suicidal thoughts/ideations. Awaiting crisis evaluation. Sitter at bedside. 3. Hypertension, untreated-as needed hydralazine for systolic blood pressure greater than 160. BP currenlty stable. 4. Anxiety/depression-not on regimen. Suicidal as noted above. Mental health/crisis consulted. 5. Tobacco dependence-encourage cessation. Nicotine replacement patch. 6. Hepatitis C/history of IV drug use-denies recent IV drug use. Outpatient follow-up for hepatitis C. DVT prophylaxis-not indicated This patient was seen by MEÑO Spence under the supervision of Dr. Ortega. Documented by User: Dr. Shala Ortega DO 11/01/21 12:16 Subjective Subjective This patient was seen in conjunction with Elissa Alfred NP. The following represents my independent history and for examination. Please see below for addendum the above. Patient has been predominantly sleeping this morning. He states that he is tired and feels a little bit anxious internally. Objective Data Lab / Micro Data Result Diagrams: 10/31/21 17:30 10/31/21 17:30 Physical Exam Const alert and oriented x3 Constitutional Narrative: Middle-aged white male lying in bed sleeping, awakens easily, is appropriate and alert and oriented but on the somnolent side, sitter at bedside General Appearance: cooperative Orientation / Consciousness: awake, oriented to person, oriented to place and oriented to time Exam Limitations: no limitations HEENT normocephalic, head/scalp atraumatic, hearing grossly normal bilaterally and moist oral mucous membranes Head and Scalp: normocephalic Resp normal respiratory effort, no retractions, no use of accessory muscles and clear to auscultation bilaterally Resp Narrative: Diffusely diminished but clear Auscultation: Negative for crackles, rales, rhonchi or wheezes Cardio regular rate, regular rhythm, S1 normal heart sound, S2 normal heart sound, no murmurs, no rub, no gallops, no clicks and no JVD Peripheral Pulses: pulses 2+ throughout GI normal to inspection, nondistended, normoactive bowel sounds, soft to palpation and non-distended Palpation: tender other (Mild diffuse tenderness without any focal point tenderness) Extremity no clubbing, cyanosis or edema Peripheral Pulses: Yes pulses 2+ throughout Skin Lesions: no lesions Rashes: no rashes Trauma: no lacerations or abrasions Neuro oriented x3, moves all extremities and deep tendon reflexes 2+ bilaterally Sensorium / Orientation: awake and alert Speech: speech normal Psych mental status grossly normal Mood & Affect: flat affect Assessment & Plan Assessment/Plan (1) Depression with suicidal ideation: (2) Alcoholism: (3) Desire for detoxification: PLAN: Acute alcohol withdrawal -Patient has had 5 admissions this calendar year for alcohol detox -Patient must enter inpatient rehab alcohol treatment program at discharge or he will be banned from the rehab program -Drinks about 1/5 of vodka a day -Indicates has been drinking almost all of his life -Continue phenobarbital taper -Continue thiamine and folate -supportive medications for symptom management -180 consultation is pending Suicidal ideation -Sitter at bedside -Crisis to see the patient later today -Patient indicates he has been suicidal and severely depressed -Had a plan to attach a cement block to his leg and throw himself in [facility] as he is unable to swim -Patient has been pink slipped on 10/31/2021 -[place] discharge plan would be to a place where he could be treated psychiatrically as well as for his alcohol issues History of hepatitis C -Resulted from IV drug use -Would like to be treated once he is sober -Patient has been interested in treatment for this in the past however we did discuss that he will need to be sober prior to initiation -Make referral to GI after discharge and outpatient follow-up Tobacco abuse -Currently smokes approximately 1 pack of cigarettes daily -Continue patch available -Recommend cessation History of polysubstance abuse -IVDU with fentanyl and heroin remotely -Patient has not used since the early 1999 -Toxicology screen was positive for cocaine prior to admission as well as barbiturates however he was admitted here recently and placed on phenobarbital at that time Intermittent THC use -Recommend cessation -Last use was reported approximately 1 month ago DVT prophylaxis -Low risk -Early ambulation CODE STATUS -Full code Charges/Coding Visit Charges Inpatient E&M: 36364 Subs Hosp L2
[2021-11-01] MEDS: Dicyclomine 10 MG Capsule 20 MG PO ×2 (11:52→22:15)
[2021-11-01] MEDS: Gabapentin 300 MG Capsule PO (11:52)
[2021-11-01 13:57] LABS: Pathologist Review Reviewed
--- NOTE | 2021-11-01 16:15 | CASEMGMT ---
Social Work SW and bedside Nurse met with Crisis Counselor. Crisis has cleared pt from suicide precautions and does not believe that psychiatric placement is warranted at this time. Crisis recommending pt proceed with addiction therapist for substance use treatment. facilities maintenance worker will complete evaluation and fax to TALAT Ray RN to update physician. JIAN Chris
[2021-11-01] MEDS: 0.9% Saline Lock 10 ML Syringe IV (22:14)
[2021-11-01] MEDS: traZODone 100 MG Tablet PO (22:15)
[2021-11-02 02:51] VITALS: BP 96/50; PULSE 62; RESP 16; TEMP 36.6; O2SAT 97
[2021-11-02] MEDS: Phenobarbital 32.4 MG Tablet 64.8 MG PO ×6 (02:55→21:35)
[2021-11-02 06:06] VITALS: BP 129/76; PULSE 66; RESP 18; TEMP 36.3; O2SAT 98
[2021-11-02] MEDS: hydrOXYzine PAM 25 MG Capsule 50 MG PO ×2 (07:27→20:00)
[2021-11-02] MEDS: Folic Acid 1 MG Tablet PO (07:27)
[2021-11-02] MEDS: Ondansetron 8 MG Tablet PO (07:27)
[2021-11-02] MEDS: Thiamine Hydrochloride 100 MG Tablet PO (07:27)
[2021-11-02 08:03] VITALS: BP 114/65; PULSE 68; RESP 16; TEMP 36.6; O2SAT 98
--- NOTE | 2021-11-02 10:07 | CT_ITS ---
STUDY: CT ABDOMEN AND PELVIS WITH CONTRAST REASON FOR EXAM: Male, 55 years old. abdominal pain RADIATION DOSAGE (If Supplied By Facility): CTDIvol = ( 19.63 ) mGy, DLP = ( 1014.07 ) mGycm TECHNIQUE: Transaxial images were obtained from the dome of the diaphragm to the symphysis pubis with oral contrast. Oral and amp; IV Gastrografin and amp; 100mL Isovue-300 was administered. Sagittal and coronal images were reconstructed. Individualized dose optimization techniques were used for this CT. COMPARISON: None. FINDINGS: The visualized lung bases are unremarkable. The visualized portions of the heart are within normal limits. Normal liver. The gallbladder is contracted. Normal spleen. Normal pancreas. Normal bilateral adrenal glands. Normal right kidney. 5 mm obstructing stone of the distal left ureter just proximal to the ureterovesical junction with mild ureteral dilatation and hydronephrosis. Normal visualized stomach. Normal small intestine. Normal colon. There are surgical clips in the region of the appendix consistent with a prior appendectomy. Normal abdominal aorta. Normal inferior vena cava. Normal retroperitoneum. Normal urinary bladder. Normal abdominal wall. Normal osseous structures. CT/Abdomen/Pelvis WITH Contrast IMPRESSION: 5 mm obstructing stone at the distal left ureter just proximal to the ureterovesical junction with mild ureteral dilatation and hydronephrosis. Electronically Signed: Fady Harris MD at 13:13 EDT ,
--- NOTE | 2021-11-02 11:38 | PCM.PN.HOSP ---
Subjective Subjective Patient states he is feeling better from a withdrawal standpoint. Much less sleepy. Says his abdominal pain is persistent. He denies any dysuria but states the pain seems to be exacerbated by him urinating. Indicates the pain is predominantly in his lower pelvis region. Objective Data Objective Data Vital Signs: Vital Signs Temp Pulse Resp BP Pulse Ox 97.9 F 68 16 114/65 98 11/02/21 08:03 11/02/21 08:03 11/02/21 08:03 11/02/21 08:03 11/02/21 08:03 Oxygen Delivery Method Room Air Weight: 85.9 kg Body Mass Index (BMI) 27.1 Intake & Output: Intake and Output for Last 24 Hours 10/31/21 11/01/21 11/02/21 23:59 23:59 23:59 Intake Total 200 / 900 1200 / 1800 600 / 600 Output Total 0 / 0 Balance 200 / 900 1200 / 1800 600 / 600 Lab / Micro Data Result Diagrams: 10/31/21 17:30 10/31/21 17:30 Labs: Laboratory Results - last 24 hr 10/31/21 17:30: Diff Path Review Reviewed 11/01/21 15:06: Ethyl Alcohol 4.0 Physical Exam Const alert and oriented x3 Constitutional Narrative: Middle-aged white male sitting up in bed watching television, appears comfortable and nontoxic, has just finished breakfast General Appearance: cooperative Orientation / Consciousness: awake, oriented to person, oriented to place and oriented to time Exam Limitations: no limitations Nutritional Appearance: overweight HEENT normocephalic, head/scalp atraumatic, hearing grossly normal bilaterally and moist oral mucous membranes HEENT Narrative: Mallampati 2, no thrush Head and Scalp: normocephalic Resp normal respiratory effort, no retractions, no use of accessory muscles and clear to auscultation bilaterally Resp Narrative: Diffusely diminished but clear Auscultation: Negative for crackles, rales, rhonchi or wheezes Cardio regular rate, regular rhythm, S1 normal heart sound, S2 normal heart sound, no murmurs, no rub, no gallops, no clicks and no JVD Peripheral Pulses: pulses 2+ throughout GI normal to inspection, nondistended, normoactive bowel sounds, soft to palpation and non-distended Palpation: tender other (Mild diffuse tenderness with increased tenderness in the bilateral pelvic region) Extremity no clubbing, cyanosis or edema Peripheral Pulses: Yes pulses 2+ throughout Skin Lesions: no lesions Rashes: no rashes Trauma: no lacerations or abrasions Neuro oriented x3, moves all extremities and deep tendon reflexes 2+ bilaterally Sensorium / Orientation: awake and alert Speech: speech normal Psych mental status grossly normal Psych Narrative: Mood is very labile, patient appears depressed and tearful during my exam, indicates he has a suicidal plan Mood & Affect: flat affect Assessment & Plan Assessment/Plan (1) Depression with suicidal ideation: (2) Alcoholism: (3) Desire for detoxification: (4) Abdominal pain: PLAN: Acute alcohol withdrawal -Patient has had 5 admissions this calendar year for alcohol detox -Patient must enter inpatient rehab alcohol treatment program at discharge or he will be banned from the rehab program -Drinks about 1/5 of vodka a day -Indicates has been drinking almost all of his life -Continue phenobarbital taper -Continue thiamine and folate -supportive medications for symptom management - awaiting 180 input as patient will need admitted to a residential treatment center which she is agreeable to at this time Suicidal ideation -Patient has been cleared by crisis Abdominal pain -Pain seems to be predominantly in the pelvic region/bilateral lower quadrants and centrally -Patient seems to think it is worse with urinating but does not have dysuria per se -We will check UA and CT of the abdomen and pelvis with p.o. and IV contrast -? prostatitis History of hepatitis C -Resulted from IV drug use -Would like to be treated once he is sober -Patient has been interested in treatment for this in the past however we did discuss that he will need to be sober prior to initiation -Make referral to GI after discharge and outpatient follow-up Tobacco abuse -Currently smokes approximately 1 pack of cigarettes daily -Continue patch available -Recommend cessation History of polysubstance abuse -IVDU with fentanyl and heroin remotely -Patient has not used since the early 1999 -Toxicology screen was positive for cocaine prior to admission as well as barbiturates however he was admitted here recently and placed on phenobarbital at that time Intermittent THC use -Recommend cessation -Last use was reported approximately 1 month ago DVT prophylaxis -Low risk -Early ambulation CODE STATUS -Full code Charges/Coding Visit Charges Inpatient E&M: 95137 Subs Hosp L2
--- NOTE | 2021-11-02 11:43 | CHAPLAIN ---
Type of Pastoral Visit _x__ Initial Visit ___ Follow-up Visit ___ On-call Visit ___ General Patient Visit ___ Spiritual Assessment ___ Family Conference ___ Bereavement ___ Rapid Response ___ Code Blue ___ Other (describe below) Pastoral Care Referral From _x__ Patient ___ Family ___ Nurse ___ Physician ___ Animal Shelter Clerk ___ Activities Aide ___ Other (describe below) Sacrament/Intervention _x__ Active listening ___ Anointing ___ Temple ___ Bereavement ___ Communion ___ Luda exploration ___ ___ Life review _x__ Prayer ___ Reconciliation ___ Sacrament of Sick ___ Supportive presence ___ Wedding ___ Other (describe below) Pastoral Comments patient is resting in bed; pt is offered support and opportunity to talk; pt responds I don't know what to talk about and has a low affect; offer to sit with patient or to say a prayer according to preference of patient; pt welcomes a prayer; offer to come back tomorrow to check on pt is possible
[2021-11-02 13:18] LABS: Bacteria 0 SEEN /hpf (None Seen); Mucous, Urine 0 SEEN /hpf (<or=2+); Red Blood Cells-Urine 0 SEEN /hpf (0-5); Squamous Epithelial Cells - UA 0 SEEN /hpf (0-5); White Blood Cells 0 SEEN /hpf (0-5)
[2021-11-02] MEDS: LORazepam 1 MG Tablet PO (13:18)
[2021-11-02 13:19] LABS: Color, Urine Straw (Yellow); Glucose, Dipstick Normal (Normal); Ketone-Dipstick Negative (Negative); Leukocyte Esterase-Dipstick Negative /ul (Negative); Nitrite-Dipstick Negative (Negative); Occult Blood-Urine Negative /ul (Negative); Protein-Dipstick Negative (Negative); Urine Bilirubin Dipstick Negative (Negative); Urine Clarity Sl. Cloudy (Clear); Urine Urobilinogen Normal (Normal)
[2021-11-02 13:22] VITALS: BP 123/79; PULSE 83; RESP 16; TEMP 36.7; O2SAT 96
--- NOTE | 2021-11-02 14:24 | PCM.HOSP.N ---
Hospitalist Note A CT of the abdomen and pelvis revealed a 5 mm obstructing stone at the distal left ureter just proximal to the UVJ with mild ureteral dilation and hydronephrosis. Patient was started on IV fluids at 100 cc/h, Flomax, medication for pain, and a consult was placed to urology.
[2021-11-02] MEDS: Lactated Ringers 1,000 ML 100 ML IV (14:36)
[2021-11-02] MEDS: Ketorolac 30 MG/ML Syringe IV (14:41)
--- NOTE | 2021-11-02 15:45 | ADDICTION ---
This typewriters functional tester met with PT to conduct ASAM, MSE, AUDIT, DUDIT assessments and to plan for d/c. PT A+Ox4 and participated actively. All assessments completed and placed in PT's chart. PT plans to f/u with follow-up with residential treatment services, however [facility] is working on placement. Will make a note once an approval is received. PT did not indicate a need for transportation post d/c from [facility].
[2021-11-02] MEDS: Tamsulosin HCl 0.4 MG Capsule PO (17:16)
[2021-11-02] MEDS: Acetaminophen 325 MG Tablet 650 MG PO (17:18)
[2021-11-02] MEDS: Gabapentin 300 MG Capsule PO (17:18)
[2021-11-02 19:59] VITALS: BP 137/71; PULSE 90; RESP 18; TEMP 37.1; O2SAT 96
[2021-11-02] MEDS: 0.9% Saline Lock 10 ML Syringe IV (19:59)
[2021-11-02] MEDS: traZODone 100 MG Tablet PO (21:35)
[2021-11-03] VITALS (9 sets, daily range): BP systolic 102–125; BP diastolic 64–80; PULSE 72–89; RESP 14–20; TEMP 36.3–36.8; O2SAT 94–98; BMI 27.1
[2021-11-03] MEDS: Lactated Ringers 1,000 ML 100 ML IV (00:36)
[2021-11-03] MEDS: Phenobarbital 32.4 MG Tablet 64.8 MG PO ×2 (03:17→09:34)
--- NOTE | 2021-11-03 06:00 | EKG12_ITS ---
Test Reason : AM EKG Blood Pressure : / mmHG Vent. Rate : 069 BPM Atrial Rate : 069 BPM P-R Int : 154 ms QRS Dur : 078 ms QT Int : 410 ms P-R-T Axes : 076 066 057 degrees QTc Int : 439 ms Normal sinus rhythm Normal ECG No previous ECGs available Confirmed by KATARINA VARGAS, PHI ([id number]), newspaper editor managing DONNA ESTRADA ([id number]) on 11/08/2021 12:26:36 PM Referred By: Confirmed By:PHI BRAY MD
[2021-11-03 06:17] LABS: AST(SGOT) 28 U/L (15-37); Alanine Aminotransfer ALT/SGPT 31 U/L (16-61); Albumin, Serum 2.4 g/dL (3.2-5.0); Alkaline Phosphatase 109 U/L (45-117); Bilirubin, Direct 0.11 mg/dL (0.00-0.30); Protein, Total 5.4 g/dL (6.4-8.2)
[2021-11-03 06:43] LABS: Prothrombin Time (Protime)PT. 12.8 SECONDS (11.7-14.9)
[2021-11-03 06:45] LABS: Partial Thromboplast Time 27.9 Seconds (24.1-36.2)
--- NOTE | 2021-11-03 08:15 | CON.PCM.UR_ITS ---
HPI Consult Data Date of Consult: 11/03/21 HPI Narrative HPI Narrative: CORY RODRIGES, is a 56 M who presents with a large stone in the distal left ureter causing obstruction and severe hydronephrosis plan to place a stent today. [facility] Medical History Alcohol abuse Alcohol abuse Anxiety Bipolar disorder Cannabis abuse Depression ETOH abuse H/O appendicitis Hepatitis History of intravenous drug use in remission Osteoarthritis Smoker Tobacco abuse Home Medications NK 09/05/21 [History Last Taken Unknown] Allergy/AdvReac Type Severity Reaction Status Date / Time No Known Allergies Allergy Verified 10/31/21 17:02 Family History Father Throat cancer Alcoholism and drug addiction in family Mother No cardiac disease Surgical History Status post appendectomy Social History (Updated 10/31/21 @ 18:[address] Shala Ortega DO) household members: significant other current occupational status: employed current occupation: Factory Work Smoking Status: Current every day smoker tobacco type: cigarettes Smoking packs per day: 1 Smoking cigarettes per day: 20.0 alcohol intake: current alcohol intake frequency: 3 or more drinks per day details: 1/5 of vodka a day substance use type: former substance user Date of last use: Early and marijuana what type of physical activity do you participate in: none Lab / Micro Data Result Diagrams: 10/31/21 17:30 10/31/21 17:30 Labs: Laboratory Results - last 24 hr 11/02/21 11:55: Urine Color Straw, Urine Clarity Sl. Cloudy, Urine pH 8.0, Ur Specific [place] 1.010, Urine Protein Negative, Urine Glucose (UA) Normal, Urine Ketones Negative, Urine Occult Blood Negative, Urine Nitrite Negative, Urine Bilirubin Negative, Urine Urobilinogen Normal, Ur Leukocyte Esterase Negative, Urine RBC 0 SEEN, Urine WBC 0 SEEN, Ur Squamous Epith Cells 0 SEEN, Urine Bacteria 0 SEEN, Urine Mucus 0 SEEN 11/03/21 05:30: PT Cancelled, INR Cancelled, APTT Cancelled 11/03/21 05:30: Total Bilirubin 0.30, Direct Bilirubin 0.11, AST 28, ALT 31, Alkaline Phosphatase 109, Total Protein 5.4 L, Albumin 2.4 L, Globulin 3.0 11/03/21 06:26: PT 12.8, INR 1.0, APTT 27.9 Radiology Impression Abdomen/Pelvis CT 11/02/21 10:07 IMPRESSION: 5 mm obstructing stone at the distal left ureter just proximal to the ureterovesical junction with mild ureteral dilatation and hydronephrosis. Electronically Signed: Fady Harris MD at 13:13 EDT ,
--- NOTE | 2021-11-03 08:16 | PCM.DC ---
Discharge Instructions Diet Discharge Diet: No restrictions Activity Discharge Activity: Return to Normal Activity and May Not Drive (while taking narcotic pain medications.) Dressing / Incision Call your doctor if you observe: Fever of 101 or Higher Follow Up Care Please Follow Up With: Jai Tanner MD When: Call [phone] for an appointment Test Results: Test results from this visit will be discussed in further detail at your follow-up appointment, if applicable. Discharge Plan Admission Admit Date/Time: 10/31/21 17:39 Attending Provider: Shala Ortega Primary Care Provider: Care Physician,No Primary Consulting Providers: Jai Tanner Discharge Orders/Prescriptions Prescriptions: No Action NK RF: 0
--- NOTE | 2021-11-03 08:16 | PCM.OPRPT ---
Report of Operation Date of Procedure: 11/03/21 Pre-Operative Diagnosis: Obstructing left ureteral calculi Post-Operative Diagnosis: The same Surgery/Procedure Performed:: Cystoscopy and left stent placement Description of Surgical Findings:: Patient was taken back to the operating room after induction of general anesthesia, the patient was placed in dorsolithotomy position. The urethra and genitals were prepped and draped in usual sterile fashion. Using a 21 Vincentian rigid cystourethroscope the entire length of the urethra was normal then went into the bladder. Identified the trigone the left and right ureteral orifice. I then cannulated the Left orifice and advanced a wire up into the kidney. I then backloaded a 5 Vincentian open ended catheter over the wire and injected contrast to delineate the anatomy. After the retrograde was performed I then used fluoroscopic images and guidance to advanced a wire up into the kidney and over the 0.038 glidewire I advanced a 6 Vincentian by 26 cm double pigtail stent. I then pulled the 0.038 Glidewire off and the stent coiled in the kidney bladder good position. The bladder was then drained. We confirmed the position of the stent by fluoroscopy. Patient anesthetic was reversed and was taken back to the PACU in good condition. Surgeon: nikolai Type of Anesthesia: General Drains: stent left Admit VTE Documentation VTE Present on Admission: No VTE Mechan Device Prophylaxis: SCD's VTE Pharm Prophylaxis ordered?: No
[2021-11-03] MEDS: Cefazolin 2 GM in 0.9% Normal Saline 100 ML IV (08:20)
[2021-11-03] MEDS: Folic Acid 1 MG Tablet PO (09:34)
[2021-11-03] MEDS: Thiamine Hydrochloride 100 MG Tablet PO (09:34)
--- NOTE | 2021-11-03 10:06 | DS.PCM_ITS ---
Providers Date of Admission: 10/31/21 Date of Discharge: 11/03/21 Primary Care Physician: Cha Primary Care Phys Consultations 11/02/21 14:22 Consult: Urology Routine Consulting Provider: Jai Tanner Reason for Consult: obstructing nephrolithiasis EMERGENT Consult: No MD Notified: Yes Date Notified: 11/02/21 Time Notified: 15:27 Method of Notification: Verbal Reason For Visit: ETOH INTOXICATION Diagnosis Discharge Diagnosis (1) Depression with suicidal ideation: Status: Acute Code(s): F32.A - Depression, unspecified; R45.851 - Suicidal ideations (2) Alcoholism: Status: Acute Code(s): F10.20 - Alcohol dependence, uncomplicated (3) Desire for detoxification: Status: Acute (4) Abdominal pain: Status: Acute Code(s): R10.9 - Unspecified abdominal pain Medications at Discharge Home Medications tamsulosin 0.4 mg PO DAILY@1730 #30 cap 11/03/21 Hospital Course Operations - (Cystoscopy and left ureteral stent placement) Procedures None Summary of Care Provided Minutes Spent on Discharge: 36 Hospital Course: Mr. Weir is a 55-year-old white male who presented to the emergency department at [facility] on 10/31/2021 requesting detox from alcohol. The patient has had 4 admissions this year for the same. He was not aware when he last went through detox however admission records noted he was here on 10/13/2021 and signed out AGAINST MEDICAL ADVICE at that time. The patient was obviously drunk at the time of admission and was slurring his words. He typically drinks 1/5 of vodka a day and his last drink was earlier on the day of admission. He reports intermittent recreational and marijuana use but denied any other drug use. He did report a history of IV drug use however indicates he has been clean for some time now. He has a known history of hepatitis C related to his IV drug use. During my exam the patient was markedly tearful and admitted to suicidal ideation with a plan. He indicated that he had intended to go to [facility] and tie a cement block around his leg and jump in. His blood alcohol at the time was greater than 400. Vital signs on admission were unremarkable. His CBC was unremarkable. His CMP was unremarkable other than mild AST elevation. His tox screen showed phenobarbital and cocaine in his symptoms some. The patient was admitted to the medical surgical floor and was started on a phenobarbital taper with thiamine and folate as well as supportive medications. 180 was consulted for assistance with discharge. There was documentation at the time of admission that the patient needed to be admitted to an inpatient rehab facility at discharge or he will no longer be able to be admitted to the rehab program. The patient was agreeable to this on admission. The patient was seen by crisis once he was sober and was cleared from a mental health standpoint. During his hospitalization he complained of some abdominal pain. He indicated that it was predominantly in his lower abdomen and was worse after urination but no dysuria with urination. We obtained a UA which was unremarkable and a CT of his abdomen pelvis which showed a 5 mm obstructing stone at the distal left ureter just proximal to the UVJ with mild ureteral dilation and hydronephrosis. The patient was placed on IV fluids and Flomax at that time. Urology was consulted and the patient was taken to the OR on 11/03/2021 for a cystoscopy and left ureteral stent placement. He did well with the procedure and his pain was reduced but still present when I evaluated him immediately post surgical intervention. 180 was able to get him admission into an inpatient rehabilitation facility at [facility] and he was discharged in stable condition at 2 PM on 11/03/2021. Of note the patient must complete this residential program, if he does not complete this residential program he will no longer be eligible for RAMP admission. We would be able to to admit him for alcohol detox but then he would discharge home without RAMP involvement. Discharge diagnoses: Acute alcohol withdrawal Suicidal ideation-cleared by crisis for discharge Obstructing nephrolithiasis status post cystoscopy and stent placement Hydronephrosis/hydroureter left History of hepatitis C Tobacco abuse History of polysubstance abuse Intermittent THC use Physical Exam Const alert and oriented x3 Constitutional Narrative: Middle-aged white male sitting up in bed, has just returned from the OR where a stent was placed in his left ureter, nursing at bedside, patient appears comfortable nontoxic General Appearance: cooperative, comfortable, well kempt and well developed Orientation / Consciousness: awake, oriented to person, oriented to place and oriented to time Exam Limitations: no limitations Nutritional Appearance: overweight HEENT normocephalic, head/scalp atraumatic, hearing grossly normal bilaterally and moist oral mucous membranes Eyes PERRL, EOMs intact bilaterally and conjunctivae normal Eyes Narrative: Scleral injection, no scleral icterus Neck no lymphadenopathy, supple and no JVD Neck Narrative: Trachea midline, no thyroid enlargement Resp normal respiratory effort, no retractions, no use of accessory muscles and clear to auscultation bilaterally Resp Narrative: Diffusely diminished but clear Auscultation: Negative for crackles, rales, rhonchi or wheezes Cardio regular rate, regular rhythm, S1 normal heart sound, S2 normal heart sound, no murmurs, no rub, no gallops, no clicks and no JVD Peripheral Pulses: pulses 2+ throughout GI normal to inspection, nondistended, normoactive bowel sounds, soft to palpation and non-distended GI Narrative: Abdomen is tender mildly diffusely however most specifically in the suprapubic region Palpation: tender other (Mild diffuse tenderness with increased tenderness in the bilateral pelvic region) Extremity no clubbing, cyanosis or edema Extremity Narrative: Pedal pulses are 2+ Skin no rashes or lesions noted, no wounds, skin turgor normal, no jaundice, no petechiae and no mottling Lesions: no lesions Rashes: no rashes Trauma: no lacerations or abrasions Neuro oriented x3, CN's II-XII intact bilaterally, moves all extremities and deep tendon reflexes 2+ bilaterally Sensorium / Orientation: awake and alert Speech: speech normal Psych mental status grossly normal and affect normal Psych Narrative: TearfulVery pleasant and appropriately interactive on the Mood & Affect: flat affect Weight / BMI Weight Weight: 85.9 kg Body Mass Index (BMI) 27.1 ABG / Lab / Microbiology Data Result Diagrams: 10/31/21 17:30 10/31/21 17:30 Laboratory: Laboratory Results - last 24 hr 11/02/21 11:55: Urine Color Straw, Urine Clarity Sl. Cloudy, Urine pH 8.0, Ur Specific [place] 1.010, Urine Protein Negative, Urine Glucose (UA) Normal, Urine Ketones Negative, Urine Occult Blood Negative, Urine Nitrite Negative, Urine Bilirubin Negative, Urine Urobilinogen Normal, Ur Leukocyte Esterase Negative, Urine RBC 0 SEEN, Urine WBC 0 SEEN, Ur Squamous Epith Cells 0 SEEN, Urine Bacteria 0 SEEN, Urine Mucus 0 SEEN 11/03/21 05:30: PT Cancelled, INR Cancelled, APTT Cancelled 11/03/21 05:30: Total Bilirubin 0.30, Direct Bilirubin 0.11, AST 28, ALT 31, Alkaline Phosphatase 109, Total Protein 5.4 L, Albumin 2.4 L, Globulin 3.0 11/03/21 06:26: PT 12.8, INR 1.0, APTT 27.9 Radiography Diagnostic Testing: Radiology Impression Abdomen/Pelvis CT 11/02/21 10:07 IMPRESSION: 5 mm obstructing stone at the distal left ureter just proximal to the ureterovesical junction with mild ureteral dilatation and hydronephrosis. Electronically Signed: Fady Harris MD at 13:13 EDT , D/C Instructions Discharge Diet: No restrictions Discharge Activity: Return to Normal Activity Call your doctor if you observe: Fever of 101 or Higher Please Follow Up With: Jai Tanner MD When: Call [phone] for an appointment Meaningful Use Info Meaningful Use Diagnoses (Choose all that apply): None applicable Discharge Plan Admission Admit Date/Time: 10/31/21 17:39 Primary Reason for Your Visit: EtOH detox Attending Provider: Shala Ortega Primary Care Provider: Care Physician,No Primary Consulting Providers: Jai Tanner Discharge Orders/Prescriptions Prescriptions: New tamsulosin 0.4 mg Capsule 0.4 mg PO DAILY@1730 Qty: 30 RF: 0 Referrals / Follow Up: Jai Tanner MD [STAFF PHYSICIAN] - Within 2 Weeks (call soon for an appt) Care Physician,No Primary [Primary Care Provider] - Disposition Disposition (needs filled in before D/C Order can be placed): Inpatient Rehab Unit/Facility Charges/Coding Visit Charges Inpatient E&M: 72959 Disch Hosp
--- NOTE | 2021-11-03 11:21 | ADDICTION ---
Pt was accepted to [facility] for residential treatment in [facility]. They will provide transportation and pick him up around 2:00 today. Pt has been informed that if does not follow through with residential treatment then he will be denied the RAMP program in the future. Pt agreed to these terms.
[2021-11-03] MEDS: Ketorolac 10 MG Tablet PO (11:50)
[2021-11-03] MEDS: hydrOXYzine PAM 25 MG Capsule 50 MG PO (13:28)
[2021-11-03] MEDS: Acetaminophen 325 MG Tablet 650 MG PO (13:28)
== END 2021-11-03 13:41 | DRG 774 ==
LOC: ED 17:09 → MS3 17:57
PROVIDERS: Anesthesiology; Urology; Admitting Provider Internal Medicine; Emergency Provider Emergency Medicine; Visit Provider Internal Medicine
PROC: 0T778DZ Dilation of Left Ureter with Intraluminal Device, Via Natural or Artificial Opening Endoscopic (ICD-10-PCS; principal; 2021-11-03 08:20)
DX: F10.239 Alcohol dependence with withdrawal, unspecified (principal); F14.19 Cocaine abuse with unspecified cocaine-induced disorder; R45.851 Suicidal ideations; F31.9 Bipolar disorder, unspecified; I10 Essential (primary) hypertension; F41.9 Anxiety disorder, unspecified; F17.210 Nicotine dependence, cigarettes, uncomplicated; B19.20 Unspecified viral hepatitis C without hepatic coma; F12.10 Cannabis abuse, uncomplicated; Y90.8 Blood alcohol level of 240 mg/100 ml or more; N13.2 Hydronephrosis with renal and ureteral calculous obstruction; Z79.899 Other long term (current) drug therapy; Z28.310 Unvaccinated for COVID-19; Z28.9 Immunization not carried out for unspecified reason; Z81.1 Family history of alcohol abuse and dependence; Z81.3 Family history of other psychoactive substance abuse and dependence
CPT/HCPCS: 36415; 74177; 76000; 80053; 80076; 80307; 81001; 82077; 85025; 85610; 85730; 93005; 99284; 99406; J7120; Q9967; A4216; C1769; C2617; J2405

== ENCOUNTER 2021-11-13 07:10 | Emergency (ER) | payer MEDICAID, SELFPAY ==
[2021-11-13 07:12] VITALS: BP 147/85; PULSE 91; RESP 17; TEMP 36.6; O2SAT 95; BMI 27.8
--- NOTE | 2021-11-13 07:39 | RAD_ITS ---
STUDY: X-RAY - ABDOMEN/PELVIS REASON FOR EXAM: Male, 56 years old. Ureteral stent eval/ L flank pain TECHNIQUE: Single AP view of the abdomen / pelvis. COMPARISON: None. FINDINGS: Normal visualized lung bases. There is an unremarkable bowel gas pattern. The left-sided double-J stent catheter is seen with the proximal tip in the region of the renal pelvis and distal tip in the left side of the urinary bladder. Normal soft tissue structures. Normal visualized osseous structures. RAD/Abdomen Single View IMPRESSION: Left-sided double-J stent catheter. Electronically Signed: Toro Mac MD at 8:05 EDT ,
[2021-11-13] MEDS: HYDROcodone Bitartrate/Apap 5/325 Tablet PO (07:48)
--- NOTE | 2021-11-13 07:55 | EDS_ITS ---
HPI History of Present Illness Chief Complaint: Complaint Informant: patient Onset/Context/Timing Onset: Weeks (2) Context: - (Since stent put in) Timing: Continuous Quality: Pain Location: Left groin and flank Current Severity: Severe Maximum Severity: Severe Worsened by: Nothing Relieved by: Nothing Narrative Narrative: Patient states he was here in the hospital 2 weeks ago and had a urinary stent put in and it has been hurting severely ever since so he presents because of this. When asked to did it or who his urologist is, he has no idea which is why he has not followed up with them. He denies any vomiting but has had some nausea off and on. No fevers or chills or hematuria. [facility] Medical History Alcohol abuse Alcohol abuse Alcoholism Anxiety Bipolar disorder Cannabis abuse Depression ETOH abuse H/O appendicitis Hepatitis History of intravenous drug use in remission Osteoarthritis Smoker Tobacco abuse Home Medications tamsulosin 0.4 mg PO DAILY@1730 #30 cap 11/03/21 [Rx Last Taken 11/12/21] hydrocodone-acetaminophen 1 tab PO Q4H PRN PRN 2 Days #10 tablet 11/13/21 [Rx Last Taken Unknown] Allergy/AdvReac Type Severity Reaction Status Date / Time No Known Allergies Allergy Verified 11/13/21 07:11 Family History Father Throat cancer Alcoholism and drug addiction in family Mother No cardiac disease Surgical History Status post appendectomy Social History household members: significant other current occupational status: employed current occupation: [employer] Work Smoking Status: Current every day smoker tobacco type: cigarettes alcohol intake: current alcohol intake frequency: 3 or more drinks per day details: 1/5 of vodka a day substance use type: former substance user Date of last use: Early and marijuana what type of physical activity do you participate in: none ROS ROS ED Constitutional Constitutional ED: Denies chills or fever(s) Eyes Eyes: Denies change in vision or diplopia ENT ENT ED: Denies rhinorrhea or sore throat Cardiovascular Cardiovascular: Denies chest pain or palpitations Respiratory/Chest Respiratory/Chest: Denies cough or dyspnea Gastrointestinal Gastrointestinal: Reports abdominal pain and nausea; Denies diarrhea or vomiting Genitourinary Genitourinary ED: Reports as per HPI and flank pain; Denies dysuria or hematuria Musculoskeletal Musculoskeletal: Denies back pain or neck pain Integumentary Denies abscess or rash Neurologic Neurologic: Denies headache(s), paresthesias or weakness Psychiatric Psychiatric: Denies anxiety or suicidal thoughts EXAM Physical Exam Const Vital Signs: 11/13/21 07:12 Temperature 97.9 F Temperature Source Temporal Pulse Rate 91 Respiratory Rate 17 Blood Pressure 147/85 H Blood Pressure Mean 105 Pulse Ox 95 Oxygen Delivery Method Room Air Positive well nourished and well developed General Appearance ED: well developed and NAD HEENT Reports moist mucous membranes normocephalic and atraumatic Eyes PERRL and EOMs intact bilaterally Neck full ROM and supple Resp normal respiratory effort and clear to auscultation bilaterally Cardio regular rate, regular rhythm and no murmurs GI non-distended GI Narrative: Left lower quadrant tenderness without rebound; patient voluntarily guards grabbing the examiner's hand. Auscultation: normoactive bowel sounds Palpation: soft Back/Spine no CVA tenderness General Back: other FROM Extremity normal to inspection General Extremety ED: Negative for edema, pulses abnormal or tenderness General Extremity: Negative for edema or pulses abnormal Neuro oriented x3, CN's II-XII intact bilaterally and no sensory deficits noted Sensorium / Orientation: awake and alert Motor Exam: strength 5/5 throughout Psych Psych Narrative: Seems intoxicated Skin no rashes or lesions noted and no wounds MDM MDM MDM Narrative Medical decision making narrative: Patient seems intoxicated, when I ask him he denies. He states he has trouble remembering 2 weeks ago about the time he was here, he does not remember the urologist who put a stent in him. Records show that it was Dr. Tanner, it was placed because he had an obstructing distal 5 mm stone in the left ureter. Given [place] for pain while we monitored him and obtained a KUB and a urinalysis. On my interpretation the KUB 2 view shows good placement of the left ureteral stent radiology in agreement. Urinalysis shows no signs of infection, he does have microscopic hematuria, he was given a [place] which helped with his pain. I discussed with Dr. Tanner, he will have his office contact the patient to set up surgery for the stone, I will send the patient home with a prescription for a short course of analgesics in the meantime. Lab Data Attestation: I reviewed the patient's lab results. Labs: Laboratory Results - last 24 hr 11/13/21 07:55 Urine Color Yellow Urine Clarity Clear Urine pH 7.0 Ur Specific [place] 1.010 Urine Protein 30 H Urine Glucose (UA) Normal Urine Ketones Negative Urine Occult Blood 250 H Urine Nitrite Negative Urine Bilirubin Negative Urine Urobilinogen 1 H Ur Leukocyte Esterase 25 H Urine RBC 5-10 SEEN Urine WBC 0-5 SEEN Ur Squamous Epith Cells 0 SEEN Urine Bacteria 0 SEEN Urine Mucus 0 SEEN Radiography Diagnostic Testing: Clinical Impression(s) from Imaging Studies KUB X-Ray 11/13/21 07:39 IMPRESSION: Left-sided double-J stent catheter. Electronically Signed: Toro Mac MD at 8:05 EDT , Discharge Plan Triage Chief Complaint: Complaint ED Provider: Cheko Juarez Dx/Rx/DC Orders Clinical Impression: Pain due to ureteral stent, Ureterolithiasis, Ureteral colic Instructions: ED Kidney Stone w/ Colic Prescriptions: New hydrocodone-acetaminophen [hydrocodone-acetaminophen] 1 TABLET tablet 1 tab PO Q4H PRN PRN (Reason: Pain) 2 Days Qty: 10 RF: 0 No Action tamsulosin 0.4 mg Capsule 0.4 mg PO DAILY@1730 Qty: 30 RF: 0 Primary Care Provider: Care Physician,No Primary Referrals: Jai Tanner MD [STAFF PHYSICIAN] - (Patient contact you within the next day or 2 to set up surgery for your stone/stent; call them if you do not hear anything) Care Physician,No Primary [Primary Care Provider] - Disposition Disposition: Home, Self Care
[2021-11-13 08:01] LABS: Bacteria 0 SEEN /hpf (None Seen); Mucous, Urine 0 SEEN /hpf (<or=2+); Squamous Epithelial Cells - UA 0 SEEN /hpf (0-5)
[2021-11-13 08:16] LABS: Color, Urine Yellow (Yellow); Glucose, Dipstick Normal (Normal); Ketone-Dipstick Negative (Negative); Leukocyte Esterase-Dipstick 25 /ul (Negative); Nitrite-Dipstick Negative (Negative); Occult Blood-Urine 250 /ul (Negative); Protein-Dipstick 30 mg/dl (Negative); Urine Bilirubin Dipstick Negative (Negative); Urine Clarity Clear (Clear); Urine Urobilinogen 1 mg/dl (Normal)
[2021-11-13 08:45] LABS: Red Blood Cells-Urine 5-10 SEEN /hpf (0-5); White Blood Cells 0-5 SEEN /hpf (0-5)
[2021-11-13 09:00] VITALS: BP 140/80; PULSE 85; RESP 16; TEMP 36.7; O2SAT 96
== END 2021-11-13 09:48 | disposition home or self-care (01) ==
PROVIDERS: Emergency Provider Emergency Medicine; Visit Provider Emergency Medicine
DX: G89.18 Other acute postprocedural pain (principal); T83.84XA Pain due to genitourinary prosthetic devices, implants and grafts, initial encounter; F10.20 Alcohol dependence, uncomplicated; R10.32 Left lower quadrant pain; N20.1 Calculus of ureter; F17.210 Nicotine dependence, cigarettes, uncomplicated; Y90.9 Presence of alcohol in blood, level not specified; Z96.0 Presence of urogenital implants
CPT/HCPCS: 74018; 81001; 99283

== ENCOUNTER 2021-11-18 10:46 | Inpatient (IN) | payer MEDICAID, SELFPAY ==
[2021-11-18] VITALS (8 sets, daily range): BP systolic 104–125; BP diastolic 70–93; PULSE 70–121; RESP 16–20; TEMP 36.5–36.8; O2SAT 96–99; BMI 28.1
--- NOTE | 2021-11-18 11:01 | CT_ITS ---
STUDY: CT BRAIN WITHOUT CONTRAST REASON FOR EXAM: Male, 56 years old. Trauma RADIATION DOSAGE (If Supplied By Facility): CTDIvol = ( 44.99 ) mGy, DLP = ( 829.85 ) mGycm TECHNIQUE: Transaxial CT imaging of the brain was performed without administration of intravenous contrast material. Individualized dose optimization techniques were used for this CT. COMPARISON: No relevant priors. FINDINGS: Normal soft tissue structures. Normal calvarium. Normal size ventricles and extra-axial spaces for the patient''s age. Normal white matter tracts of the cerebral hemispheres. Normal basal ganglia and thalami. Normal brainstem. Normal cerebellum. There is no intracranial hemorrhage. There are no findings of an acute ischemic infarction. There is bilateral mucosal thickening of the maxillary sinuses. There is a right-sided maxillary mucosal retention cyst. CT/Brain/Head without Contrast IMPRESSION: Mild atrophy no evidence of acute hemorrhage infarct or edema. Chronic appearing sinusitis.. Electronically Signed: Cristina Martinez MD at 12:08 EDT ,
--- NOTE | 2021-11-18 11:03 | EX.ED.SAOD ---
HPI History of Present Illness Chief Complaint: ETOH Intox Detail of Chief Complaint: Requesting detox from alcohol Informant: patient Narrative Narrative: Patient presents to the emergency department requesting detox from alcohol. Patient states that he was at an inpatient facility recently but after 5 days he was discharged financially because his insurance would not cover it. Apparently they did not try to find him another location. Patient started drinking again. He last drank about half an hour ago. He drinks vodka and hard seltzers. Patient fell getting out of his vehicle in the parking lot and hit his head. No loss of consciousness. Is had no vomiting. Patient currently intoxicated. Prior similar symptoms: Yes PFSH PFSH Medical History Alcohol abuse Alcohol abuse Alcoholism Anxiety Bipolar disorder Cannabis abuse Depression ETOH abuse H/O appendicitis Hepatitis History of intravenous drug use in remission Osteoarthritis Smoker Tobacco abuse Home Medications tamsulosin 0.4 mg PO DAILY@1730 #30 cap 11/03/21 [Rx Last Taken 11/12/21] hydrocodone-acetaminophen 1 tab PO Q4H PRN PRN 2 Days #10 tablet 11/13/21 [Rx Last Taken Unknown] bupropion HCl 100 mg PO DAILY 11/18/21 [History Last Taken Unknown] citalopram 20 mg PO DAILY 11/18/21 [History Last Taken Unknown] gabapentin 600 mg PO TID 11/18/21 [History Last Taken Unknown] hydroxyzine pamoate 25 mg PO Q6H PRN 11/18/21 [History Last Taken Unknown] naltrexone 50 mg PO DAILY 11/18/21 [History Last Taken Unknown] nicotine 1 patch TRANSDERMAL Q24H 11/18/21 [History Last Taken Unknown] trazodone 50 mg PO QHS PRN 11/18/21 [History Last Taken Unknown] Allergy/AdvReac Type Severity Reaction Status Date / Time No Known Allergies Allergy Verified 11/13/21 07:11 Family History Father Throat cancer Alcoholism and drug addiction in family Mother No cardiac disease Surgical History Status post appendectomy Social History household members: significant other current occupational status: employed current occupation: Factory Work Smoking Status: Current every day smoker tobacco type: cigarettes alcohol intake: current alcohol intake frequency: 3 or more drinks per day details: 1/5 of vodka a day substance use type: former substance user Date of last use: Early and marijuana what type of physical activity do you participate in: none ROS ROS ED ROS Narrative Alcohol intoxication and requesting detox Constitutional Constitutional ED: Reports systems reviewed and no addt'l complaints, except as documented; Denies body ache(s), change in weight or chills Eyes Eyes: Denies acute decrease in peripheral vision, change in vision, double vision or loss of vision ENT ENT ED: Reports none; Denies ear pain, lip swelling, loss taste/smell, neck pain, otalgia or sore throat Cardiovascular Cardiovascular: Reports none; Denies abdominal pain, chest pain with activity, leg edema, lightheadedness, palpitations, rapid heart rate or syncope Respiratory/Chest Respiratory/Chest: Reports none; Denies change in mental status, dry cough, dyspnea, hemoptysis, shortness of breath at rest or shortness of breath with exertion Gastrointestinal Gastrointestinal: Reports none; Denies abdominal pain, change in stool character, diarrhea, hematemesis, hematochezia, melena, rectal bleeding or vomiting Genitourinary Genitourinary ED: Reports none; Denies abdominal discomfort, anuria, dysuria, genital pain or polyuria Musculoskeletal Musculoskeletal: Reports none; Denies arthralgias, back pain, difficulty walking, extremity pain, muscle weakness or myalgias Integumentary Reports none; Denies abscess or rash Neurologic Neurologic: Reports none and headache(s); Denies abnormal gait, confusion, focal weakness, frequent falls, loss of vision, numbness, paresthesias, radicular pain, vertigo or weakness Psychiatric Psychiatric: Reports systems reviewed and no addt'l complaints, except as documented and none; Denies behavioral changes, confusion, difficulty concentrating, hallucinations, suicidal ideation, tactile hallucinations or visual hallucinations Endocrine Endocrinology: Denies none, cold intolerance, excessive sweating, fatigue or heat intolerance Hematologic/Lymphatic Hematologic/Lymphatic: Reports none; Denies anemia, easy bleeding or easy bruising Allergic/Immunologic Allergic/Immunologic ED: Denies as per HPI, none, lip swelling, mouth swelling, throat swelling, tongue swelling or hives EXAM Physical Exam Const Vital Signs: 11/18/21 10:46 Temperature 97.7 F L Temperature Source Temporal Pulse Rate 121 H Respiratory Rate 16 Blood Pressure 125/93 H Blood Pressure Mean 103 Pulse Ox 99 Oxygen Delivery Method Room Air Positive well nourished and well developed General Appearance ED: well developed and NAD HEENT Reports TM's clear and moist mucous membranes HEENT Narrative: Patient has a circular subtle area of mild erythema to the right frontal forehead. No bony depressions noted. He has no C-spine tenderness on palpation. normocephalic; Negative for trauma or tenderness Tympanic Membrane ED: Yes TM's clear Eyes PERRL and EOMs intact bilaterally General Eye ED: Negative for pale conjunctiva or scleral icterus Neck no lymphadenopathy, supple and no JVD General: Negative for tenderness Chest Wall inspection of chest normal and palpation of chest normal Chest: Negative for tenderness Resp normal respiratory effort and clear to auscultation bilaterally Effort and Inspection: Negative for respiratory distress or pain with movement Auscultation: Negative for rhonchi, wheezes or diminished lung sounds Cardio regular rate, regular rhythm, S1 normal heart sound, S2 normal heart sound and no murmurs Peripheral Pulses: pulses 2+ throughout GI normal to inspection, nondistended, normoactive bowel sounds, non-tender, non-distended and no masses GI Narrative: Mild diffuse tenderness to palpation of the abdomen. There is no rebound, rigidity, or peritoneal signs. Back/Spine no CVA tenderness and no thoracic nor lumbar tenderness Extremity normal to inspection General Extremety ED: Negative for edema General Extremity: Negative for edema Neuro oriented x3, CN's II-XII intact bilaterally, no sensory deficits noted and gait normal Sensorium / Orientation: awake, alert, oriented to person, oriented to place and oriented to time Motor Exam: strength 5/5 throughout and strength abnormal Psych mental status grossly normal Skin no rashes or lesions noted and no wounds MDM MDM MDM Narrative Medical decision making narrative: IV line established on arrival. Patient was given Toradol for his flank pain. CT scan of the brain without contrast was unremarkable. Chemistries were unremarkable. Patient's alcohol was 280. Toxicology screen was positive for barbiturates. Case will be discussed with hospitalist to evaluate patient for admission for alcohol intoxication and requesting detox from alcohol. Lab Data Attestation: I reviewed the patient's lab results. Labs: Laboratory Results - last 24 hr 11/18/21 11/18/21 11/18/21 11:32 11:32 11:32 WBC 7.7 RBC 4.24 L Hgb 14.6 Hct 40.5 MCV 95.5 H MCH 34.4 H MCHC 36.0 RDW Std Deviation 39.9 RDW Coeff of Shekhar 11.5 L Plt Count 184 MPV 9.9 Immature Gran % (Auto) 0.300 Neut % (Auto) 40.0 L Lymph % (Auto) 49.4 H [place] % (Auto) 6.0 Eos % (Auto) 3.5 Baso % (Auto) 0.8 Absolute Neuts (auto) 3.1 Absolute Lymphs (auto) 3.79 Nucleated RBC % 0 Sodium 138 Potassium 3.7 Chloride 104 Carbon Dioxide 25.0 Anion Gap 9 BUN 3 L Creatinine 0.81 Estim Creat Clear Calc 106.40 Est GFR (MDRD) Af Amer 127 Est GFR (MDRD) Non-Af 105 BUN/Creatinine Ratio 3.7 L Glucose 140 H Calcium 8.0 L Total Bilirubin 0.50 AST 52 H ALT 55 Alkaline Phosphatase 87 Total Protein 7.1 Albumin 3.5 Globulin 3.6 Albumin/Globulin Ratio 1.0 Urine Opiates Screen Urine Methadone Screen Ur Barbiturates Screen Ur Phencyclidine Scrn Ur Amphetamines Screen MDMA (Ecstasy) Screen U Benzodiazepines Scrn Urine Cocaine Screen U Cannabinoids Screen Ur Drug Screen Comment Ethyl Alcohol 280.0 11/18/21 12:28 WBC RBC Hgb Hct MCV MCH MCHC RDW Std Deviation RDW Coeff of Shekhar Plt Count MPV Immature Gran % (Auto) Neut % (Auto) Lymph % (Auto) [place] % (Auto) Eos % (Auto) Baso % (Auto) Absolute Neuts (auto) Absolute Lymphs (auto) Nucleated RBC % Sodium Potassium Chloride Carbon Dioxide Anion Gap BUN Creatinine Estim Creat Clear Calc Est GFR (MDRD) Af Amer Est GFR (MDRD) Non-Af BUN/Creatinine Ratio Glucose Calcium Total Bilirubin AST ALT Alkaline Phosphatase Total Protein Albumin Globulin Albumin/Globulin Ratio Urine Opiates Screen NEGATIVE Urine Methadone Screen NEGATIVE Ur Barbiturates Screen POSITIVE H Ur Phencyclidine Scrn NEGATIVE Ur Amphetamines Screen NEGATIVE MDMA (Ecstasy) Screen NEGATIVE U Benzodiazepines Scrn NEGATIVE Urine Cocaine Screen NEGATIVE U Cannabinoids Screen NEGATIVE Ur Drug Screen Comment Ethyl Alcohol Radiography Diagnostic Testing: Clinical Impression(s) from Imaging Studies Brain CT 11/18/21 11:01 IMPRESSION: Mild atrophy no evidence of acute hemorrhage infarct or edema. Chronic appearing sinusitis.. Electronically Signed: Cristina Martinez MD at 12:08 EDT , Discharge Plan Triage Chief Complaint: ETOH Intox ED Provider: Ange Howe Dx/Rx/DC Orders Clinical Impression: Alcohol intoxication, Desire for detoxification Prescriptions: No Action tamsulosin 0.4 mg Capsule 0.4 mg PO DAILY@1730 Qty: 30 RF: 0 hydrocodone-acetaminophen [hydrocodone-acetaminophen] 1 TABLET tablet 1 tab PO Q4H PRN PRN (Reason: Pain) 2 Days Qty: 10 RF: 0 gabapentin 600 mg Tablet 600 mg PO TID RF: 0 trazodone 50 mg Tablet 50 mg PO QHS PRN (Reason: Sleep) RF: 0 naltrexone 50 mg tablet 50 mg PO DAILY RF: 0 bupropion HCl 100 mg Tablet 100 mg PO DAILY RF: 0 citalopram 20 mg Tablet 20 mg PO DAILY RF: 0 nicotine 21 mg/24 hr Patch 24 Hour 1 patch TRANSDERMAL Q24H RF: 0 hydroxyzine pamoate 25 mg Capsule 25 mg PO Q6H PRN (Reason: Anxiety) RF: 0 Primary Care Provider: Care Physician,No Primary Referrals: Care Physician,No Primary [Primary Care Provider] - Disposition Disposition: Acute Care [facility]
[2021-11-18 11:42] LABS: Absolute Lymphocyte Count 3.79 X10^3/uL (0.83-4.51); Absolute Neutrophil Count 3.1 X10^3/uL (2.0-7.7); Basophil# 0.06 X10^3/uL; Basophil% 0.8 % (0-1); Eosinophil# 0.27 X10^3/uL; Eosinophils% 3.5 % (0-5); Hematocrit 40.5 % (40-54); Hemoglobin 14.6 g/dL (13.0-16.5); Lymphocyte # 3.79 X10^3/ul (0.83-4.51); Lymphocyte % 49.4 % (19-41); Mean Corpuscular Hgb 34.4 pg (27.0-32.0); Mean Corpuscular Volume 95.5 fL (80-94); Mean Platelet Vol. 9.9 fl (6.2-12.0); Monocyte# 0.46 X10^3/uL; NRBC Flagged by Analyzer 0 % (0-5); Neutrophil # 3.07 X10^3/uL (2.7-7.7); Platelet Count 184 K/mm3 (150-450); RBC Distribution Width CV 11.5 % (11.6-14.6); RBC Distribution Width SD 39.9 fl (35.1-43.9); Red Blood Count 4.24 M/mm3 (4.6-6.2); White Blood Count 7.7 K/mm3 (4.4-11.0)
[2021-11-18 12:00] LABS: AST(SGOT) 52 U/L (15-37); Alanine Aminotransfer ALT/SGPT 55 U/L (16-61); Albumin, Serum 3.5 g/dL (3.2-5.0); Alkaline Phosphatase 87 U/L (45-117); Anion Gap 9 (5-15); BUN 3 mg/dL (7-18); BUN/Creat Ratio 3.7 RATIO (10-20); Chloride 104 mmol/L (98-107); Creatinine, Serum 0.81 mg/dL (0.70-1.30); EST Glomerular Filtration Rate 105 mL/min (>60); Est Glom Filt Rate - Afr Amer 127 mL/min (>60); Globulin 3.6 g/dL (2.2-4.2); Glucose 140 mg/dL (74-106); Potassium 3.7 mmol/L (3.5-5.1); Protein, Total 7.1 g/dL (6.4-8.2); Sodium Level 138 mmol/L (136-145)
[2021-11-18] MEDS: Ketorolac 30 MG/ML Syringe IV (12:02)
[2021-11-18 12:47] LABS: Amphetamine Urine VISTA NEGATIVE (<1000 ng/mL); Barbiturate Urine VISTA POSITIVE (< 200 ng/mL); Benzodiazepine Urine VISTA NEGATIVE (< 200 ng/mL); Cocaine Urine VISTA NEGATIVE (< 300 ng/mL); Ecstacy Urine VISTA NEGATIVE (< 500 ng/mL); Methadone Urine VISTA NEGATIVE (< 300 ng/mL); PCP Urine VISTA NEGATIVE (< 25 ng/mL); THC Urine VISTA NEGATIVE (< 50 ng/mL); Vista UDS pH Range 8
--- NOTE | 2021-11-18 13:14 | NURSING ---
DR MARISELA AVENDANO
--- NOTE | 2021-11-18 13:33 | NURSING ---
303 MARISELA ETOH INTOXICATION, REQUEST FOR DETOX
[2021-11-18 13:44] LABS: Lipase 88 U/L (73-393)
--- NOTE | 2021-11-18 13:54 | CT_ITS ---
EXAM: CT ABDOMEN AND PELVIS WITHOUT INTRAVENOUS CONTRAST CLINICAL INDICATION: flank pain TECHNIQUE: Helically acquired images were obtained of the abdomen and pelvis without intravenous contrast. This CT exam was performed using one or more of the following dose reduction techniques: automated exposure control, adjustment of the mA and/or kV according to patient size, and/or use of iterative reconstruction technique. This report was created using [employer] report generation technology. COMPARISON: 11/02/2021 FINDINGS: LOWER THORAX: Unremarkable. Lung bases are clear. No cardiomegaly. No significant pericardial effusion. ABDOMEN: LIVER: Unremarkable. Homogeneous. GALLBLADDER AND BILE DUCTS: Unremarkable. No calcified gallstones. No gallbladder distention or wall edema. No intra- or extrahepatic biliary ductal dilation. PANCREAS: Unremarkable. No focal cystic mass. SPLEEN: Unremarkable. Normal size without focal cystic or solid mass. ADRENALS: Unremarkable. No nodules. KIDNEYS AND URETERS: There is a 5 mm ureteral stone abutting the stent in the distal ureter. Normal renal size and position. No hydronephrosis. STOMACH AND BOWEL: Unremarkable. No stomach or bowel distention. No focal inflammatory change. PELVIS: APPENDIX: No evidence of acute appendicitis. BLADDER: Unremarkable. REPRODUCTIVE: Unremarkable as visualized. No mass. ABDOMEN and PELVIS: INTRAPERITONEAL SPACE: Unremarkable. No ascites or other fluid collection. No free air. BONES/JOINTS: Unremarkable. No suspicious lytic or blastic abnormality. SOFT TISSUES: Unremarkable. No discrete abdominal or pelvic wall hernia. VASCULATURE: Unremarkable. Abdominal aorta is non-dilated. LYMPH NODES: Unremarkable. No enlarged lymph nodes. TUBES, LINES AND DEVICES: Left ureteral stent in good position. CT/Abdomen/Pelvis without Cont IMPRESSION: Left ureteral stent in place. The proximal portions of the upper pole calyx of the distal aspect of the bladder. There is a 5 mm ureteral stone abutting the distal aspect of the stent. Electronically Signed: Gui Borges MD at 15:28 EDT ,
[2021-11-18 14:08] LABS: International Normalized Ratio 1.1; Prothrombin Time (Protime)PT. 14.1 SECONDS (11.7-14.9)
--- NOTE | 2021-11-18 14:30 | PCM.HP.STD ---
HPI - General General Date of Admission: 11/18/21 Date of Service: 11/18/21 Chief Complaint: Alcohol withdrawal and left lower quadrant pain HPI Narrative CORY RODRIGES, is a 56 M with history of chronic alcohol use and dependence and large stone in distal left ureter with severe hydronephrosis status post stent on 11/03 came to ED for left lower quadrant abdominal pain and alcohol withdrawal symptoms. Patient was just recently admitted between 10/31 discharged on 11/03 for acute alcohol withdrawal and left ureteric colic. Patient stated after discharge he has been drinking less to control his shakes and tremor but he was drinking 1/5 of vodka for long time. He denies any alcohol withdrawal seizure, hallucination, delusion or illusion. Last time he had suicidal ideation admission and H&P. Patient came to the ER requesting alcohol detox and was discharged to inpatient rehab facility but he was discharged after 5 days because insurance would not cover it. His last drink was about half an hour prior to ED visit. The patient is tachycardic, heart rate 121, blood pressure 125/93. Labs reviewed and discussed in assessment plan [facility] Medical History Alcohol abuse Alcohol abuse Alcoholism Anxiety Bipolar disorder Cannabis abuse Depression ETOH abuse H/O appendicitis Hepatitis History of intravenous drug use in remission Osteoarthritis Smoker Tobacco abuse Home Medications tamsulosin 0.4 mg PO DAILY@1730 #30 cap 11/03/21 [Rx Last Taken 11/12/21] hydrocodone-acetaminophen 1 tab PO Q4H PRN PRN 2 Days #10 tablet 11/13/21 [Rx Last Taken Unknown] bupropion HCl 100 mg PO DAILY 11/18/21 [History Last Taken Unknown] citalopram 20 mg PO DAILY 11/18/21 [History Last Taken Unknown] gabapentin 600 mg PO TID 11/18/21 [History Last Taken Unknown] hydroxyzine pamoate 25 mg PO Q6H PRN 11/18/21 [History Last Taken Unknown] naltrexone 50 mg PO DAILY 11/18/21 [History Last Taken Unknown] nicotine 1 patch TRANSDERMAL Q24H 11/18/21 [History Last Taken Unknown] trazodone 50 mg PO QHS PRN 11/18/21 [History Last Taken Unknown] Allergy/AdvReac Type Severity Reaction Status Date / Time No Known Allergies Allergy Verified 11/13/21 07:11 Family History Father Throat cancer Alcoholism and drug addiction in family Mother No cardiac disease Surgical History Status post appendectomy Social History household members: significant other current occupational status: employed current occupation: Factory Work Smoking Status: Current every day smoker tobacco type: cigarettes alcohol intake: current alcohol intake frequency: 3 or more drinks per day details: 1 of vodka a day substance use type: former substance user Date of last use: Early and marijuana what type of physical activity do you participate in: none ROS ROS Narrative Constitutional: Reports fatigue and weakness. No fever. In severe pain HEENT: Reports systems reviewed and no addt'l complaints, except as documented Respiratory/Chest: Denies chest pain, shortness of breath at rest or with exertion Gastrointestinal: Denies coffee ground emesis, hematemesis or vomiting Genitourinary: Burning pain, bifurcation of urinary stream, no straining. Yellow urine. Left flank pain with radiation to groin admission HPI Musculoskeletal: No joint pain and limited range of motion Neurologic: Denies seizure-like activity skin: No ulcer. No rash Endocrinology: Reports systems reviewed and no addt'l complaints, except as documented Hematologic/Lymphatic: Reports systems reviewed and no addt'l complaints, except as documented Psychiatric: Alcohol dependence Rest 14 ROS are negative except as mentioned in HPI Vital Signs Vital Signs Vital Signs: 11/18/21 10:46 11/18/21 13:20 Temperature 97.7 F L 98.0 F Temperature Source Temporal Temporal Pulse Rate 121 H 83 Respiratory Rate 16 16 Blood Pressure 125/93 H 104/86 H Blood Pressure Mean 103 92 Pulse Ox 99 97 Oxygen Delivery Method Room Air Room Air Weight Weight: 196 lb Body Mass Index (BMI) 28.1 Physical Exam Narrative General: Alert, Oriented x3, Cooperative, in severe pain left flank HEENT: Atraumatic, PERRLA, EOMI, Normocephalic Oral: Oral mucosa dry. No Gingival or Mucosal Lesions/ Ulcerations Neck: Supple, No JVD, Negative Carotid Bruits Lungs: Air entry diminished in bilateral lung bases. No crepitation/rhonchi Cardiovascular: Sinus tachycardia, Normal S1, Normal S2, No murmurs Abdomen: Bowel Sounds Present, Soft, Non Tender, Non-Distended : Tenderness present over left flank. No guarding/rigidity. No renal angle tenderness. Extremities: No edema, Capillary Refill Less than 3 Seconds Skin: No rashes, No breakdown Musculoskeletal: No Tenderness to Palpation of Joints or Extremities Neurological: Cranial nerves II-XII grossly intact, DTR 2+/4 and Symmetrical, Neuro grossly intact Psych/Mental Status: Normal Affect, Appropriate. Results Lab / Micro Data Result Diagrams: 11/18/21 11:32 11/18/21 11:32 Labs: Laboratory Results - last 24 hr 11/18/21 11:32: WBC 7.7, RBC 4.24 L, Hgb 14.6, Hct 40.5, MCV 95.5 H, MCH 34.4 H, MCHC 36.0, RDW Std Deviation 39.9, RDW Coeff of Shekhar 11.5 L, Plt Count 184, MPV 9.9, Immature Gran % (Auto) 0.300, Neut % (Auto) 40.0 L, Lymph % (Auto) 49.4 H, [place] % (Auto) 6.0, Eos % (Auto) 3.5, Baso % (Auto) 0.8, Absolute Neuts (auto) 3.1, Absolute Lymphs (auto) 3.79, Nucleated RBC % 0 11/18/21 11:32: Sodium 138, Potassium 3.7, Chloride 104, Carbon Dioxide 25.0, Anion Gap 9, BUN 3 L, Creatinine 0.81, Estim Creat Clear Calc 106.40, Est GFR (MDRD) Af Amer 127, Est GFR (MDRD) Non-Af 105, BUN/Creatinine Ratio 3.7 L, Glucose 140 H, Calcium 8.0 L, Total Bilirubin 0.50, AST 52 H, ALT 55, Alkaline Phosphatase 87, Total Protein 7.1, Albumin 3.5, Globulin 3.6, Albumin/Globulin Ratio 1.0 11/18/21 11:32: Ethyl Alcohol 280.0 11/18/21 11:32: Lipase 88 11/18/21 12:28: Urine Opiates Screen NEGATIVE, Urine Methadone Screen NEGATIVE, Ur Barbiturates Screen POSITIVE H, Ur Phencyclidine Scrn NEGATIVE, Ur Amphetamines Screen NEGATIVE, MDMA (Ecstasy) Screen NEGATIVE, U Benzodiazepines Scrn NEGATIVE, Urine Cocaine Screen NEGATIVE, U Cannabinoids Screen NEGATIVE, Ur Drug Screen Comment 11/18/21 13:50: PT 14.1, INR 1.[address] 11/18/21 11:01 IMPRESSION: Mild atrophy no evidence of acute hemorrhage infarct or edema. Chronic appearing sinusitis.. Electronically Signed: Cristina Martinez MD at 12:08 EDT , Assessment & Plan Assessment/Plan (1) Alcohol withdrawal syndrome: (2) Ureteral colic: PLAN: 1. Acute alcohol withdrawal syndrome with history of chronic alcohol use and dependence: Patient is being admitted on [facility] floor. He is started on alcohol withdrawal order set with phenobarbital and other adjunctive medications including gabapentin. On home medications, patient on naltrexone, bupropion and citalopram which is on hold. Consult 180. It seems patient was sent home because insurance did not cover inpatient alcohol rehab. With her alcohol 280. U tox positive for barbiturates. 2. Left ureteric stone with ureteric colic complicated with left hydronephrosis status post left ureteric stent on 11/03: CT abdomen ordered and report pending. I called urologist, Dr. Tanner who is out of town on weekend. He will be back on Saturday. Pain control. Lipase normal. UA with urine culture ordered. If the suspicion of pyuria will start on antibiotic. 3. Patient had suicidal ideation/thoughts during previous admission. This time he denies any suicidal ideation plan or intent. rn case manager consulted. 4. Anxiety depression: Patient on multiple SSRI bupropion which is being held as mentioned above 5. History of IV substance use in the past, history of hepatitis C: Outpatient follow-up. 6. Chronic cigarette smoking/tobacco dependence: Nicotine patch ordered Full code. Charges/Coding Visit Charges Inpatient E&M: 07178 Init Hosp L3
--- NOTE | 2021-11-18 14:41 | CASEMGMT ---
Social Work SW notified treatment navigator w/[facility] of the admission. JESSIE Suarez
[2021-11-18] MEDS: 0.9% Saline Lock 10 ML Syringe IV ×2 (15:11→20:21)
[2021-11-18] MEDS: Lactated Ringers 1,000 ML 100 ML IV (15:11)
[2021-11-18] MEDS: Gabapentin 600 MG Tablet PO ×2 (15:25→21:00)
[2021-11-18] MEDS: HYDROmorphone 1 MG/ML Syringe IV ×2 (15:28→20:20)
[2021-11-18] MEDS: Thiamine Hydrochloride 100 MG Tablet PO (15:33)
[2021-11-18] MEDS: Phenobarbital 32.4 MG Tablet PO ×2 (17:18→20:20)
[2021-11-18] MEDS: Folic Acid 1 MG Tablet PO (17:19)
[2021-11-18] MEDS: Tamsulosin HCl 0.4 MG Capsule PO (17:19)
[2021-11-18] MEDS: Enoxaparin 40 MG/0.4 ML Syringe SC (17:20)
[2021-11-18 17:40] LABS: Bacteria 0 SEEN /hpf (None Seen); Mucous, Urine 0 SEEN /hpf (<or=2+); Squamous Epithelial Cells - UA 0 SEEN /hpf (0-5); White Blood Cells 0 SEEN /hpf (0-5)
[2021-11-18 18:12] LABS: Color, Urine Yellow (Yellow); Glucose, Dipstick Normal (Normal); Ketone-Dipstick Negative (Negative); Leukocyte Esterase-Dipstick 100 /ul (Negative); Nitrite-Dipstick Negative (Negative); Occult Blood-Urine 250 /ul (Negative); Protein-Dipstick 30 mg/dl (Negative); Urine Bilirubin Dipstick Negative (Negative); Urine Clarity Clear (Clear); Urine Urobilinogen 4 mg/dl (Normal)
[2021-11-18 18:20] LABS: Red Blood Cells-Urine 0-5 SEEN /hpf (0-5)
[2021-11-18] MEDS: hydrOXYzine PAM 25 MG Capsule 50 MG PO (18:20)
[2021-11-18] MEDS: traZODone 100 MG Tablet PO (21:00)
[2021-11-19] VITALS (7 sets, daily range): BP systolic 103–141; BP diastolic 63–85; PULSE 62–95; RESP 16–18; TEMP 36.6–37; O2SAT 93–100
[2021-11-19] MEDS: Phenobarbital 32.4 MG Tablet PO ×6 (00:55→20:20)
[2021-11-19] MEDS: Gabapentin 600 MG Tablet PO ×3 (06:51→21:34)
--- NOTE | 2021-11-19 07:27 | PCM.PN.HOSP ---
Subjective Subjective Follow-up for alcoholic withdrawal, left retrocolic pain and depression Patient stating he has severe pain but he feels like depressed. He had suicidal attempt in the past for about 2 years ago when he overdosed with fentanyl while drinking alcohol. Currently denies any suicidal ideations, plan. activities manager notified and [facility] counselor will be coming around 1130 Objective Data Objective Data Vital Signs: Vital Signs Temp Pulse Resp BP Pulse Ox 98.3 F 62 16 103/63 97 11/19/21 04:45 11/19/21 04:45 11/19/21 04:45 11/19/21 04:45 11/19/21 04:45 Oxygen Delivery Method Room Air Weight: 196 lb Body Mass Index (BMI) 28.1 Intake & Output: Intake and Output for Last 24 Hours 11/17/21 11/18/21 11/19/21 23:59 23:59 23:59 Intake Total 480 / 480 1000 / 1000 Balance 480 / 480 1000 / 1000 Lab / Micro Data Result Diagrams: 11/18/21 11:32 11/18/21 11:32 Labs: Laboratory Results - last 24 hr 11/18/21 11:32: WBC 7.7, RBC 4.24 L, Hgb 14.6, Hct 40.5, MCV 95.5 H, MCH 34.4 H, MCHC 36.0, RDW Std Deviation 39.9, RDW Coeff of Shekhar 11.5 L, Plt Count 184, MPV 9.9, Immature Gran % (Auto) 0.300, Neut % (Auto) 40.0 L, Lymph % (Auto) 49.4 H, [place] % (Auto) 6.0, Eos % (Auto) 3.5, Baso % (Auto) 0.8, Absolute Neuts (auto) 3.1, Absolute Lymphs (auto) 3.79, Nucleated RBC % 0 11/18/21 11:32: Sodium 138, Potassium 3.7, Chloride 104, Carbon Dioxide 25.0, Anion Gap 9, BUN 3 L, Creatinine 0.81, Estim Creat Clear Calc 106.40, Est GFR (MDRD) Af Amer 127, Est GFR (MDRD) Non-Af 105, BUN/Creatinine Ratio 3.7 L, Glucose 140 H, Calcium 8.0 L, Total Bilirubin 0.50, AST 52 H, ALT 55, Alkaline Phosphatase 87, Total Protein 7.1, Albumin 3.5, Globulin 3.6, Albumin/Globulin Ratio 1.0 11/18/21 11:32: Ethyl Alcohol 280.0 11/18/21 11:32: Lipase 88 11/18/21 12:28: Urine Opiates Screen NEGATIVE, Urine Methadone Screen NEGATIVE, Ur Barbiturates Screen POSITIVE H, Ur Phencyclidine Scrn NEGATIVE, Ur Amphetamines Screen NEGATIVE, MDMA (Ecstasy) Screen NEGATIVE, U Benzodiazepines Scrn NEGATIVE, Urine Cocaine Screen NEGATIVE, U Cannabinoids Screen NEGATIVE, Ur Drug Screen Comment 11/18/21 13:50: PT 14.1, INR 1.1 11/18/21 17:15: Urine Color Yellow, Urine Clarity Clear, Urine pH 8.0, Ur Specific [place] 1.010, Urine Protein 30 H, Urine Glucose (UA) Normal, Urine Ketones Negative, Urine Occult Blood 250 H, Urine Nitrite Negative, Urine Bilirubin Negative, Urine Urobilinogen 4 H, Ur Leukocyte Esterase 100 H, Urine RBC 0-5 SEEN, Urine WBC 0 SEEN, Ur Squamous Epith Cells 0 SEEN, Urine Bacteria 0 SEEN, Urine Mucus 0 SEEN Radiography Diagnostic Testing: Radiology Impression Brain CT 11/18/21 11:01 IMPRESSION: Mild atrophy no evidence of acute hemorrhage infarct or edema. Chronic appearing sinusitis.. Electronically Signed: Cristina Martinez MD at 12:08 EDT , Abdomen/Pelvis CT 11/18/21 13:54 IMPRESSION: Left ureteral stent in place. The proximal portions of the upper pole calyx of the distal aspect of the bladder. There is a 5 mm ureteral stone abutting the distal aspect of the stent. Electronically Signed: Gui Borges MD at 15:28 EDT , Physical Exam Narrative General: Alert, Oriented x3, Cooperative, in severe pain left flank HEENT: Atraumatic, PERRLA, EOMI, Normocephalic Oral: Oral mucosa dry. No Gingival or Mucosal Lesions/ Ulcerations Neck: Supple, No JVD, Negative Carotid Bruits Lungs: Air entry diminished in bilateral lung bases. No crepitation/rhonchi Cardiovascular: Sinus tachycardia, Normal S1, Normal S2, No murmurs Abdomen: Bowel Sounds Present, Soft, Non Tender, Non-Distended : Tenderness present over left flank. No guarding/rigidity. No renal angle tenderness. Extremities: No edema, Capillary Refill Less than 3 Seconds Skin: No rashes, No breakdown Musculoskeletal: No Tenderness to Palpation of Joints or Extremities Neurological: Cranial nerves II-XII grossly intact, DTR 2+/4 and Symmetrical, Neuro grossly intact Psych/Mental Status: Normal Affect, Appropriate. Assessment & Plan Assessment/Plan (1) Alcohol withdrawal syndrome: (2) Ureteral colic: PLAN: 1. Acute alcohol withdrawal syndrome with history of chronic alcohol use and dependence: [facility] He is started on alcohol withdrawal order set with phenobarbital and other adjunctive medications including gabapentin. On home medications, patient on naltrexone, bupropion and citalopram which is on hold. Consult 180. It seems patient was sent home because insurance did not cover inpatient alcohol rehab. 180 rehabilitation caseworker consulted. U tox positive for barbiturates. 11/19: Patient has mild tremors and restlessness but denies hallucinations, delusions. No seizure. Continue current treatment. 2. Left ureteric stone with ureteric colic complicated with left hydronephrosis status post left ureteric stent on 11/03: CT abdomen ordered and report pending. I called urologist, Dr. Tanner who is out of town on weekend. He will be back on Saturday. Pain control. Lipase normal. UA with urine culture ordered. If the suspicion of pyuria will start on antibiotic. 11/19: Abdomen CT individually reviewed. Small 5 mm distal ureteral stone [place] the distal aspect of the stent. Hydronephrosis has resolved. Previous CT scan 11/02 showed mild ureteral dilatation and hydronephrosis. Normal right kidney. 3. Patient had suicidal ideation/thoughts during previous admission. This time he denies any suicidal ideation plan or intent. activities manager consulted. 11/19: Patient feeling depressed but no suicidal ideation. Counselor 180s coming to see around about 1:30 AM today. Patient put back on his home medication citalopram. 4. Anxiety depression: Patient on multiple SSRI bupropion which is being held as mentioned above. Bupropion hold as recommended for alcohol withdrawal syndrome for risk of seizure. 5. History of IV substance use in the past, history of hepatitis C: Outpatient follow-up. 6. Chronic cigarette smoking/tobacco dependence: Nicotine patch ordered Full code. Charges/Coding Visit Charges Inpatient E&M: 81523 Subs Hosp L2
[2021-11-19] MEDS: Thiamine Hydrochloride 100 MG Tablet PO (08:18)
[2021-11-19] MEDS: Folic Acid 1 MG Tablet PO (08:18)
[2021-11-19] MEDS: HYDROmorphone 1 MG/ML Syringe IV ×3 (10:07→21:35)
[2021-11-19] MEDS: 0.9% Saline Lock 10 ML Syringe IV ×2 (10:07→17:34)
[2021-11-19] MEDS: hydrOXYzine PAM 25 MG Capsule 50 MG PO (10:10)
[2021-11-19] MEDS: Enoxaparin 40 MG/0.4 ML Syringe SC (10:16)
[2021-11-19] MEDS: Polyethylene Glycol 3350 17 GM PACKET PO (10:26)
[2021-11-19] MEDS: Citalopram 20 MG Tablet PO (12:22)
[2021-11-19] MEDS: oxyCODONE 5 MG Tablet PO ×2 (12:30→20:21)
[2021-11-19] MEDS: Tamsulosin HCl 0.4 MG Capsule PO (17:37)
[2021-11-19] MEDS: Senna/Docusate Sodium 1 Tablet 2 TABLET PO (21:34)
[2021-11-19] MEDS: traZODone 100 MG Tablet PO (21:34)
[2021-11-20] MEDS: Phenobarbital 32.4 MG Tablet PO ×7 (00:52→23:43)
[2021-11-20] MEDS: oxyCODONE 5 MG Tablet PO ×5 (00:52→20:16)
[2021-11-20 02:10] VITALS: BP 102/60; PULSE 72; RESP 18; TEMP 36.6; O2SAT 98
[2021-11-20] MEDS: HYDROmorphone 1 MG/ML Syringe IV ×5 (02:47→22:17)
[2021-11-20] MEDS: hydrOXYzine PAM 25 MG Capsule 50 MG PO ×2 (02:47→09:05)
[2021-11-20] MEDS: Gabapentin 600 MG Tablet PO ×3 (05:03→22:17)
[2021-11-20] MEDS: Acetaminophen 325 MG Tablet 650 MG PO (05:37)
[2021-11-20 08:40] VITALS: BP 139/81; PULSE 91; RESP 18; TEMP 36.6; O2SAT 100
[2021-11-20] MEDS: Folic Acid 1 MG Tablet PO (09:05)
[2021-11-20] MEDS: Citalopram 20 MG Tablet PO (09:05)
[2021-11-20] MEDS: Enoxaparin 40 MG/0.4 ML Syringe SC (09:06)
[2021-11-20] MEDS: Thiamine Hydrochloride 100 MG Tablet PO (09:15)
--- NOTE | 2021-11-20 10:51 | ADDICTION ---
Addendum entered by Isha Cates 11/20/21 11:08: [facility]. Original Note: This technical publications writer met with PT to conduct ASAM, MSE, AUDIT, DUDIT assessments and to plan for d/c. PT A+Ox4 and participated actively. All assessments completed, and placed in PT's chart. PT plans [facility] if approved. This is patients 7th time in detox since August. This worker informed him that he will not be eligible for the [facility] program in the future if he does not complete residential treatment directly after d/c. PT did not indicate a need for transportation post d/c from [facility].
--- NOTE | 2021-11-20 12:35 | PCM.CONS.U ---
HPI Consult Data Date of Consult: 11/20/21 HPI Narrative HPI Narrative: CORY RODRIGES, is a 56 M who presentsBack to the hospital with severe pain on the side of the kidney stone he has a stent in place said he was having so much pain he did not know what to do so he came back to the hospital he now looks fairly comfortable sitting in bed watching TV we will plan for intervention this Saturday with ureteroscopy and laser [facility] Medical History Alcohol abuse Alcohol abuse Alcoholism Anxiety Bipolar disorder Cannabis abuse Depression ETOH abuse H/O appendicitis Hepatitis History of intravenous drug use in remission Osteoarthritis Smoker Tobacco abuse Home Medications tamsulosin 0.4 mg PO DAILY@1730 #30 cap 11/03/21 [Rx Last Taken 11/12/21] hydrocodone-acetaminophen 1 tab PO Q4H PRN PRN 2 Days #10 tablet 11/13/21 [Rx Last Taken Unknown] bupropion HCl 100 mg PO DAILY 11/18/21 [History Last Taken Unknown] citalopram 20 mg PO DAILY 11/18/21 [History Last Taken Unknown] gabapentin 600 mg PO TID 11/18/21 [History Last Taken Unknown] hydroxyzine pamoate 25 mg PO Q6H PRN 11/18/21 [History Last Taken Unknown] naltrexone 50 mg PO DAILY 11/18/21 [History Last Taken Unknown] nicotine 1 patch TRANSDERMAL Q24H 11/18/21 [History Last Taken Unknown] trazodone 50 mg PO QHS PRN 11/18/21 [History Last Taken Unknown] Allergy/AdvReac Type Severity Reaction Status Date / Time No Known Allergies Allergy Verified 11/13/21 07:11 Family History Father Throat cancer Alcoholism and drug addiction in family Mother No cardiac disease Surgical History Status post appendectomy Social History household members: significant other current occupational status: employed current occupation: Factory Work Smoking Status: Current every day smoker tobacco type: cigarettes alcohol intake: current alcohol intake frequency: 3 or more drinks per day details: 1/5 of vodka a day substance use type: former substance user Date of last use: Early and marijuana what type of physical activity do you participate in: none Lab / Micro Data Result Diagrams: 11/18/21 11:32 11/18/21 11:32 Micro: Microbiology 11/18/21 17:15 Urine, Clean Catch Urine Culture - Final Mixed Gram Positive Organisms
[2021-11-20 13:53] VITALS: BP 114/68; PULSE 86; RESP 16; TEMP 37.1; O2SAT 98
[2021-11-20] MEDS: 0.9% Saline Lock 10 ML Syringe IV ×3 (13:55→22:17)
--- NOTE | 2021-11-20 17:04 | PN.HOSP_ITS ---
Subjective Subjective Seen and examined today, nursing states that he has been asking for IV pain medications due to left flank pain. I texted urology today and they stated that they would take the patient to surgery on Saturday for removal of the left ureteral stone. Also talked with addiction delinquency prevention social worker who stated they would try to get an inpatient placement for the patient for detox services-he has been noncompliant with this in the past. Patient has been admitted many times here for alcohol detox. Objective Data Objective Data Vital Signs: Vital Signs Temp Pulse Resp BP Pulse Ox 98.8 F 86 16 114/68 98 11/20/21 13:53 11/20/21 13:53 11/20/21 13:53 11/20/21 13:53 11/20/21 13:53 Oxygen Delivery Method Room Air Weight: 88.904 kg Body Mass Index (BMI) 28.1 Intake & Output: Intake and Output for Last 24 Hours 11/18/21 11/19/21 11/20/21 23:59 23:59 23:59 Intake Total 480 / 480 2200 / 2900 2400 / 2400 Output Total 225 / 225 Balance 480 / 480 2200 / 2900 2175 / 2175 Lab / Micro Data Result Diagrams: 11/18/21 11:32 11/18/21 11:32 Micro: Microbiology 11/18/21 17:15 Urine, Clean Catch Urine Culture - Final Mixed Gram Positive Organisms Physical Exam Const alert, oriented x3 and no apparent distress Constitutional Narrative: Patient appears much older than his stated age General Appearance: cooperative, well kempt and well developed Orientation / Consciousness: awake, oriented to person, oriented to place and oriented to time HEENT normocephalic, head/scalp atraumatic and moist oral mucous membranes Head and Scalp: normocephalic Eyes PERRL, EOMs intact bilaterally and conjunctivae normal Neck nuchal rigidity, supple, no JVD, thyroid normal and no carotid bruits General: trachea midline Resp normal respiratory effort, no retractions, no use of accessory muscles and clear to auscultation bilaterally Auscultation: Negative for rales, rhonchi or wheezes Cardio regular rate, regular rhythm, S1 normal heart sound, S2 normal heart sound, no murmurs, no rub and no gallops GI normal to inspection, nondistended, normoactive bowel sounds, soft to palpation, non-tender and non-distended Extremity no clubbing, cyanosis or edema Skin no rashes or lesions noted General Skin Exam: no breakdown Neuro oriented x3, CN's II-XII intact bilaterally, no focal motor deficits and no sensory deficits noted Neuro Narrative: Patient is alert but has slurred speech, nursing stated that he was given IV narcotics recently for left flank pain. Sensorium / Orientation: awake and alert Speech: speech normal Psych Psych Narrative: Patient does not appear anxious or depressed, he appears under some sedating medication-patient has some slurring of his speech Assessment & Plan Assessment/Plan (1) Alcohol withdrawal syndrome: PLAN: 1. Acute alcohol withdrawal-patient will remain on phenobarb taper, addiction delinquency prevention social worker is trying to get the patient admitted to an inpatient detox facility, because of the patient's surgery on Saturday afternoon, this may not be able to be accomplished until of this week. #2 left ureteral stone with ureteral colic-I have elected to leave the patient on IV narcotics for his discomfort at this time, patient does have a past history of IV drug abuse according to addiction delinquency prevention social worker and nursing. #3 Chronic alcoholism-complicates care, recovery, and prognosis #4 chronic depression-patient is on Celexa Charges/Coding Visit Charges Inpatient E&M: 23548 Subs Hosp L2
[2021-11-20 18:08] VITALS: BP 130/84; PULSE 98; RESP 16; TEMP 37.3; O2SAT 100
[2021-11-20] MEDS: Tamsulosin HCl 0.4 MG Capsule PO (18:14)
[2021-11-20 22:16] VITALS: BP 109/89; PULSE 98; RESP 18; TEMP 37.2; O2SAT 98
[2021-11-20] MEDS: Senna/Docusate Sodium 1 Tablet 2 TABLET PO (22:17)
[2021-11-20] MEDS: traZODone 100 MG Tablet PO (23:43)
[2021-11-21 06:00] VITALS: BP 145/63; PULSE 79; RESP 18; TEMP 36.8; O2SAT 97
[2021-11-21] MEDS: oxyCODONE 5 MG Tablet PO ×5 (06:08→23:41)
[2021-11-21] MEDS: Gabapentin 600 MG Tablet PO ×3 (06:09→21:10)
[2021-11-21] MEDS: Phenobarbital 32.4 MG Tablet PO ×4 (06:09→23:40)
[2021-11-21] MEDS: hydrOXYzine PAM 25 MG Capsule 50 MG PO (06:09)
[2021-11-21 08:52] VITALS: BP 126/88; PULSE 100; RESP 16; TEMP 36.5; O2SAT 100
[2021-11-21] MEDS: HYDROmorphone 1 MG/ML Syringe IV ×3 (08:59→21:10)
[2021-11-21] MEDS: 0.9% Saline Lock 10 ML Syringe IV ×3 (08:59→21:13)
[2021-11-21] MEDS: Folic Acid 1 MG Tablet PO (09:00)
[2021-11-21] MEDS: Thiamine Hydrochloride 100 MG Tablet PO (09:00)
[2021-11-21] MEDS: Senna/Docusate Sodium 1 Tablet 2 TABLET PO ×2 (09:48→21:10)
[2021-11-21] MEDS: Polyethylene Glycol 3350 17 GM PACKET PO (09:49)
[2021-11-21] MEDS: Citalopram 20 MG Tablet PO (09:49)
[2021-11-21] MEDS: Enoxaparin 40 MG/0.4 ML Syringe SC (09:49)
[2021-11-21] MEDS: Acetaminophen 325 MG Tablet 650 MG PO (15:34)
--- NOTE | 2021-11-21 15:47 | PN.HOSP_ITS ---
Subjective Subjective Patient was seen and salmon today, he still has been complaining of left flank pain, he is scheduled to have a cystoscopy tomorrow. Patient does not appear nervous or anxious at this time. Objective Data Objective Data Vital Signs: Vital Signs Temp Pulse Resp BP Pulse Ox 97.7 F L 100 16 126/88 H 100 11/21/21 08:52 11/21/21 08:52 11/21/21 08:52 11/21/21 08:52 11/21/21 08:52 Oxygen Delivery Method Room Air Weight: 88.904 kg Body Mass Index (BMI) 28.1 Intake & Output: Intake and Output for Last 24 Hours 11/19/21 11/20/21 11/21/21 23:59 23:59 23:59 Intake Total 2200 / 2900 2900 / 2900 930 / 930 Output Total 225 / 225 Balance 2200 / 2900 2675 / 2675 930 / 930 Lab / Micro Data Result Diagrams: 11/18/21 11:32 11/18/21 11:32 Micro: Microbiology 11/18/21 17:15 Urine, Clean Catch Urine Culture - Final Mixed Gram Positive Organisms Physical Exam Const alert, oriented x3 and no apparent distress General Appearance: cooperative, well kempt and well developed Orientation / Consciousness: awake, oriented to person, oriented to place and oriented to time HEENT normocephalic, head/scalp atraumatic and moist oral mucous membranes Head and Scalp: normocephalic Eyes PERRL, EOMs intact bilaterally and conjunctivae normal Neck nuchal rigidity, supple, no JVD, thyroid normal and no carotid bruits General: trachea midline Resp normal respiratory effort, no retractions, no use of accessory muscles and clear to auscultation bilaterally Auscultation: Negative for rales, rhonchi or wheezes Cardio regular rate, regular rhythm, S1 normal heart sound, S2 normal heart sound, no murmurs, no rub and no gallops GI normal to inspection, nondistended, normoactive bowel sounds, soft to palpation, non-tender and non-distended Extremity normal to inspection and no clubbing, cyanosis or edema Skin no rashes or lesions noted General Skin Exam: no breakdown Neuro oriented x3, CN's II-XII intact bilaterally, no focal motor deficits and no sensory deficits noted Sensorium / Orientation: awake and alert Speech: speech normal Psych affect normal Assessment & Plan Assessment/Plan (1) Alcohol withdrawal syndrome: PLAN: 1. Acute alcohol withdrawal-patient will remain on phenobarb taper, addiction social sciences department chair is trying to get the patient admitted to an inpatient detox facility, because of the patient's surgery on Saturday afternoon, this may not be able to be accomplished until of this week. Patient remains minimally symptomatic at this time from alcohol withdrawal. #2 left ureteral stone with ureteral colic-I have elected to continue giving the patient IV narcotics for pain control, these will be tapered or stopped tomorrow after surgery if possible. #3 Chronic alcoholism-complicates care, recovery, and prognosis #4 chronic depression-patient is on Celexa Charges/Coding Visit Charges Inpatient E&M: 00147 Subs Hosp L2
[2021-11-21 17:33] VITALS: BP 107/74; PULSE 98; RESP 16; TEMP 36.4; O2SAT 98
[2021-11-21] MEDS: Tamsulosin HCl 0.4 MG Capsule PO (17:40)
[2021-11-21 20:00] VITALS: BP 134/73; PULSE 90; RESP 16; TEMP 36.8; O2SAT 96
[2021-11-21] MEDS: traZODone 100 MG Tablet PO (23:41)
[2021-11-22] VITALS (10 sets, daily range): BP systolic 103–143; BP diastolic 47–80; PULSE 86–97; RESP 16–18; TEMP 36.6–37.3; O2SAT 95–98; BMI 28.0
[2021-11-22] MEDS: Phenobarbital 32.4 MG Tablet PO ×2 (05:30→18:46)
[2021-11-22] MEDS: Gabapentin 600 MG Tablet PO ×2 (05:30→21:56)
[2021-11-22] MEDS: HYDROmorphone 1 MG/ML Syringe IV ×3 (05:30→14:16)
--- NOTE | 2021-11-22 06:00 | EKG12_ITS ---
Test Reason : AM EKG Blood Pressure : / mmHG Vent. Rate : 084 BPM Atrial Rate : 084 BPM P-R Int : 164 ms QRS Dur : 076 ms QT Int : 362 ms P-R-T Axes : 063 027 027 degrees QTc Int : 427 ms Normal sinus rhythm Normal ECG When compared with ECG of 03-NOV-2021 05:30, No significant change was found Confirmed by KATARINA VARGAS, PHI ([id number]), multimedia editor DONNA ESTRADA ([id number]) on 11/24/2021 9:20:54 AM Referred By: MARISELA Confirmed By:PHI BRAY MD
[2021-11-22 06:09] LABS: Partial Thromboplast Time 31.6 Seconds (24.1-36.2)
[2021-11-22] MEDS: oxyCODONE 5 MG Tablet PO ×2 (08:00→19:53)
[2021-11-22] MEDS: 0.9% Saline Lock 10 ML Syringe IV ×2 (10:00→14:16)
[2021-11-22] MEDS: Cefazolin 2 GM in 0.9% Normal Saline 100 ML IV (17:01)
--- NOTE | 2021-11-22 17:03 | DCINST_ITS ---
Discharge Instructions Diet Discharge Diet: No restrictions Follow Up Care Please Follow Up With: Jai Tanner MD Test Results: Test results from this visit will be discussed in further detail at your follow- up appointment, if applicable. Discharge Plan Admission Admit Date/Time: 11/18/21 13:17 Attending Provider: Jim Chapman Primary Care Provider: Care Physician,No Primary Consulting Providers: Jai Tanner ; Jose L Pineda Discharge Orders/Prescriptions Prescriptions: No Action tamsulosin 0.4 mg Capsule 0.4 mg PO DAILY@1730 Qty: 30 0RF hydrocodone-acetaminophen [hydrocodone-acetaminophen] 1 TABLET tablet 1 tab PO Q4H PRN PRN (Reason: Pain) 2 Days Qty: 10 0RF gabapentin 600 mg Tablet 600 mg PO TID trazodone 50 mg Tablet 50 mg PO QHS PRN (Reason: Sleep) naltrexone 50 mg tablet 50 mg PO DAILY Label Comments: TAKE 1/2 (ONE-HALF) TABLET BY MOUTH ONCE DAILY bupropion HCl 100 mg Tablet 100 mg PO DAILY citalopram 20 mg Tablet 20 mg PO DAILY nicotine 21 mg/24 hr Patch 24 Hour 1 patch TRANSDERMAL Q24H hydroxyzine pamoate 25 mg Capsule 25 mg PO Q6H PRN (Reason: Anxiety) Referrals / Follow Up: Care Physician,No Primary [Primary Care Provider] -
--- NOTE | 2021-11-22 17:36 | OP.PCM_ITS ---
Report of Operation Date of Procedure: 11/22/21 Pre-Operative Diagnosis: Left ureteral calculi status post stent Post-Operative Diagnosis: Same Surgery/Procedure Performed:: Cystoscopy left ureteroscopy laser lithotripsy of stone and stent removal left retrograde pyelogram Description of Surgical Findings:: This is a 56-year-old male who presented with obstructing stone in the distal left ureter he was admitted to the hospital after the stent was placed about a week later with severe pain continued. Recommend bring him back to the operating room today for ureteroscopy laser of the stone and remove the stent Patient was taken back to the operating room after smooth induction of general anesthesia he was placed in dorsolithotomy position the urethra penis and testicles were prepped and draped in usual sterile fashion went into the bladder with a 21 Kinyarwanda rigid cystourethroscope grabbed the existing stent and pulled it out to the meatus and then went back in with a flexible ureteroscope identify the left ureteral orifice was able go get into the orifice with the flexible scope went up the ureter and encountered some bullous edema and then a stone stuck within the bullous edema I then used a 270 ?m laser fiber and lasered the stone little tiny pieces after of lasering the stone completely in small pieces that are passed on their own I worked all the way up to the kidney I did not see any other stones work my way down the ureter retrograde pyelograms performed and then normal anatomy good drainage of contrast I then drained the bladder I did not put a stent back in patient anesthetic was reversed and is taken back to PACU in good condition successfully lasered the stone completely tiny fragment that should pass on there own and no stent placed on the left side. Surgeon: Jai Tanner Type of Anesthesia: General Drains: none Admit VTE Documentation VTE Present on Admission: No VTE Mechan Device Prophylaxis: SCD's VTE Pharm Prophylaxis ordered?: No
[2021-11-22] MEDS: Tamsulosin HCl 0.4 MG Capsule PO (18:46)
--- NOTE | 2021-11-22 19:29 | PCM.PN.HOSP ---
Subjective Subjective Patient was seen and examined today, he underwent cystoscopy today with left ureteroscopy and laser lithotripsy of stone and stent removal and left retrograde pyelogram. Patient is asking for pain meds postop, I have elected to place him on oral pain meds rather than IV pain meds, patient told me this morning he would be going to an inpatient detox facility tomorrow. Objective Data Objective Data Vital Signs: Vital Signs Temp Pulse Resp BP Pulse Ox 97.9 F 90 18 115/67 98 11/22/21 18:36 11/22/21 18:36 11/22/21 18:36 11/22/21 18:36 11/22/21 18:36 Oxygen Delivery Method Room Air Weight: 88.9 kg Body Mass Index (BMI) 28.0 Intake & Output: Intake and Output for Last 24 Hours 11/20/21 11/21/21 11/22/21 23:59 23:59 23:59 Intake Total 2900 / 2900 2330 / 2330 210 / 210 Output Total 225 / 225 200 / 200 150 / 150 Balance 2675 / 2675 2130 / 2130 60 / 60 Lab / Micro Data Result Diagrams: 11/18/21 11:32 11/18/21 11:32 Labs: Laboratory Results - last 24 hr 11/22/21 03:39: APTT 31.6 Micro: Microbiology 11/18/21 17:15 Urine, Clean Catch Urine Culture - Final Mixed Gram Positive Organisms Physical Exam Const alert, oriented x3 and no apparent distress General Appearance: cooperative, well kempt and well developed Orientation / Consciousness: awake, oriented to person, oriented to place and oriented to time HEENT normocephalic, head/scalp atraumatic and moist oral mucous membranes Head and Scalp: normocephalic Eyes PERRL, EOMs intact bilaterally and conjunctivae normal Neck nuchal rigidity, supple, no JVD, thyroid normal and no carotid bruits General: trachea midline Resp normal respiratory effort, no retractions, no use of accessory muscles and clear to auscultation bilaterally Auscultation: Negative for rales, rhonchi or wheezes Cardio regular rate, regular rhythm, S1 normal heart sound, S2 normal heart sound, no murmurs, no rub and no gallops GI normal to inspection, nondistended, normoactive bowel sounds, soft to palpation, non-tender and non-distended Extremity normal to inspection and no clubbing, cyanosis or edema Skin no rashes or lesions noted General Skin Exam: no breakdown Neuro oriented x3, CN's II-XII intact bilaterally, no focal motor deficits and no sensory deficits noted Sensorium / Orientation: awake and alert Speech: speech normal Psych affect normal Assessment & Plan Assessment/Plan (1) Alcohol withdrawal syndrome: PLAN: Plan 1. Acute alcohol withdrawal-patient will remain on phenobarb taper, patient will be transferred to an inpatient detox program tomorrow if he remains medically stable #2 left ureteral stone with ureteral colic-status post cystoscopy and left ureteroscopy with laser lithotripsy of stone and stent removal and left retrograde pyelogram-again patient was changed over to oral pain meds #3 Chronic alcoholism-complicates care, recovery, and prognosis #4 chronic depression-patient is on Celexa Charges/Coding Visit Charges Inpatient E&M: 02114 Subs Hosp L2
[2021-11-22] MEDS: Acetaminophen 325 MG Tablet 650 MG PO (19:54)
[2021-11-22] MEDS: Senna/Docusate Sodium 1 Tablet 2 TABLET PO (21:56)
[2021-11-22] MEDS: traZODone 100 MG Tablet PO (21:57)
[2021-11-23 02:30] VITALS: BP 103/67; PULSE 78; RESP 16; TEMP 36.6; O2SAT 95
[2021-11-23] MEDS: Acetaminophen 325 MG Tablet 650 MG PO (05:58)
[2021-11-23] MEDS: Gabapentin 600 MG Tablet PO (05:58)
[2021-11-23] MEDS: oxyCODONE 5 MG Tablet PO ×2 (05:59→10:18)
[2021-11-23 06:30] VITALS: BP 96/64; PULSE 85; RESP 16; TEMP 37.3; O2SAT 95
[2021-11-23] MEDS: hydrOXYzine PAM 25 MG Capsule 50 MG PO (08:20)
[2021-11-23] MEDS: Senna/Docusate Sodium 1 Tablet 2 TABLET PO (08:20)
[2021-11-23] MEDS: Enoxaparin 40 MG/0.4 ML Syringe SC (08:20)
[2021-11-23] MEDS: Thiamine Hydrochloride 100 MG Tablet PO (08:20)
[2021-11-23] MEDS: Citalopram 20 MG Tablet PO (08:20)
[2021-11-23] MEDS: Polyethylene Glycol 3350 17 GM PACKET PO (08:21)
[2021-11-23] MEDS: Folic Acid 1 MG Tablet PO (08:21)
[2021-11-23 08:28] VITALS: BP 131/79; PULSE 74; RESP 18; TEMP 36.3; O2SAT 98
--- NOTE | 2021-11-23 10:40 | DCINST_ITS ---
Discharge Instructions Diet Discharge Diet: No restrictions Activity Discharge Activity: Return to Normal Activity Weight Bearing Status: Full weight bearing Follow Up Care Please Follow Up With: Jai Tanner MD Test Results: Test results from this visit will be discussed in further detail at your follow- up appointment, if applicable. Discharge Plan Admission Admit Date/Time: 11/18/21 13:17 Primary Reason for Your Visit: alcohol detox Attending Provider: Jim Chapman Primary Care Provider: Care Physician,No Primary Consulting Providers: Jai Tanner ; Jose L Pineda Discharge Orders/Prescriptions Prescriptions: Continued tamsulosin 0.4 mg Capsule 0.4 mg PO DAILY@1730 Qty: 30 0RF gabapentin 600 mg Tablet 600 mg PO TID citalopram 20 mg Tablet 20 mg PO DAILY nicotine 21 mg/24 hr Patch 24 Hour 1 patch TRANSDERMAL Q24H Discontinued hydrocodone-acetaminophen [hydrocodone-acetaminophen] 1 TABLET tablet 1 tab PO Q4H PRN PRN (Reason: Pain) 2 Days Qty: 10 0RF trazodone 50 mg Tablet 50 mg PO QHS PRN (Reason: Sleep) naltrexone 50 mg tablet 50 mg PO DAILY Label Comments: TAKE 1/2 (ONE-HALF) TABLET BY MOUTH ONCE DAILY bupropion HCl 100 mg Tablet 100 mg PO DAILY hydroxyzine pamoate 25 mg Capsule 25 mg PO Q6H PRN (Reason: Anxiety) Referrals / Follow Up: Jai Tanner MD [STAFF PHYSICIAN] - (Will call patient if appointment needed) Care Physician,No Primary [Primary Care Provider] - Disposition Disposition (needs filled in before D/C Order can be placed): DC/Tx to Another Type of HCF
--- NOTE | 2021-11-24 16:45 | DS.PCM_ITS ---
Providers Date of Admission: 11/18/21 Date of Discharge: 11/23/21 Primary Care Physician: Cha Primary Care Phys Consultations 11/18/21 15:22 Consult: Urology Routine Consulting Provider: Jai Tanner Reason for Consult: left uretic colic pain EMERGENT Consult: No MD Notified: Yes Date Notified: 11/18/21 Time Notified: 13:47 Method of Notification: Text Reason For Visit: ACUTE ALCOHOL WITHDRAWAL Diagnosis Discharge Diagnosis (1) Alcohol withdrawal syndrome: Status: Acute Code(s): F10.239 - Alcohol dependence with withdrawal, unspecified Plan 1.? Acute alcohol withdrawal #2 left ureteral stone with ureteral colic-status post cystoscopy and left ureteroscopy with laser lithotripsy of stone and stent removal and left retrograde pyelogram-again patient was changed over to oral pain meds #3? Chronic alcoholism #4 chronic depression Medications at Discharge Home Medications tamsulosin 0.4 mg capsule 0.4 mg PO DAILY@1730 #30 caps 11/03/21 citalopram 20 mg tablet 20 mg PO DAILY 11/18/21 gabapentin 600 mg tablet 600 mg PO TID 11/18/21 nicotine 21 mg/24 hr daily transdermal patch 1 patch transdermal Q24H 11/18/21 Hospital Course Operations None Procedures - (Cystoscopy and left ureterostomy with laser lithotripsy of stone and stent removal and left retrograde pyelogram) Summary of Care Provided Minutes Spent on Discharge: 31 Hospital Course: This 56-year-old white male was seen in the emergency room at [facility] requesting services for alcohol detox, he also complained of left urete ral pain, patient was admitted to [place] [address], CT scan showed presence of a left ureteral stone, he was seen in consultation by urology, he was seen by addiction social work assistant, and he was given IV pain medications for left ureteral stone. Patient underwent removal of the stone by urology during his hospitalization, patient agreed to inpatient detox services at the time of discharge from the hospital. On 11/23/2021, patient was seen and examined: On examination he appeared in good health and spirits. Vital signs as documented. Skin warm and dry and without overt rashes. Neck without JVD, neck was supple, trachea midline, thyroid was normal. Lungs clear bilaterally, normal air movement was noted. Heart exam notable for regular rhythm, normal sounds and absence of murmurs, rubs or gallops. Abdomen unremarkable and without evidence of organomegaly, masses, or abdominal aortic enlargement. Bowel sounds are present, abdomen is not distended. Extremities nonedematous, no cyanosis was noted, no clubbing was noted. Neuro: Cranial nerves II through XII are grossly intact, no focal motor deficits were noted, sensation to light touch and pinprick intact, motor exam 5/5 throughout. Psych: Patient is alert and oriented x3, he does not appear anxious or depressed, he does not appear agitated. Patient was discharged to an inpatient detox center on 11/23/2021 in stable condition Weight / BMI Weight Weight: 88.9 kg Body Mass Index (BMI) 28.0 ABG / Lab / Microbiology Data Result Diagrams: 11/18/21 11:32 11/18/21 11:32 Microbiology: Microbiology 11/18/21 17:15 Urine, Clean Catch Urine Culture - Final Mixed Gram Positive Organisms D/C Instructions Discharge Diet: No restrictions Weight Bearing Status: Full weight bearing Please Follow Up With: Jai Tanner MD Meaningful Use Info Meaningful Use Diagnoses (Choose all that apply): None applicable Discharge Plan Admission Admit Date/Time: 11/18/21 13:17 Primary Reason for Your Visit: alcohol detox Attending Provider: Jim Chapman Primary Care Provider: Care Physician,No Primary Consulting Providers: Jai Tanner ; Jose L Pineda Instructions Additional Instructions / Restrictions: Patient Problems: Altered Health Status related to Hospitalization Patient Goals: *Optimal Level of Health *Keep Appointments *Medication Compliance *Remain Safe Discharge Orders/Prescriptions Prescriptions: Continued tamsulosin 0.4 mg Capsule 0.4 mg PO DAILY@1730 Qty: 30 0RF gabapentin 600 mg Tablet 600 mg PO TID citalopram 20 mg Tablet 20 mg PO DAILY nicotine 21 mg/24 hr Patch 24 Hour 1 patch TRANSDERMAL Q24H Discontinued hydrocodone-acetaminophen [hydrocodone-acetaminophen] 1 TABLET tablet 1 tab PO Q4H PRN PRN (Reason: Pain) 2 Days Qty: 10 0RF trazodone 50 mg Tablet 50 mg PO QHS PRN (Reason: Sleep) naltrexone 50 mg tablet 50 mg PO DAILY Label Comments: TAKE 1/2 (ONE-HALF) TABLET BY MOUTH ONCE DAILY bupropion HCl 100 mg Tablet 100 mg PO DAILY hydroxyzine pamoate 25 mg Capsule 25 mg PO Q6H PRN (Reason: Anxiety) Referrals / Follow Up: Jai Tanner MD [STAFF PHYSICIAN] - (Will call patient if appointment needed) Care Physician,No Primary [Primary Care Provider] - Disposition Disposition (needs filled in before D/C Order can be placed): DC/Tx to Another Type of HCF Charges/Coding Visit Charges Inpatient E&M: 04103 Disch Hosp
== END 2021-11-23 11:39 | disposition other institution (70) | DRG 775 ==
LOC: ED 13:18 → MS3 13:26
PROVIDERS: Anesthesiology; Urology; Admitting Provider Internal Medicine; Emergency Provider Emergency Medicine; Visit Provider Internal Medicine
PROC: 0TJ98ZZ Inspection of Ureter, Via Natural or Artificial Opening Endoscopic (ICD-10-PCS; CPT 52352; principal; 2021-11-22 15:30)
DX: F10.239 Alcohol dependence with withdrawal, unspecified (principal); F17.210 Nicotine dependence, cigarettes, uncomplicated; F41.9 Anxiety disorder, unspecified; F32.A Depression, unspecified; N13.2 Hydronephrosis with renal and ureteral calculous obstruction; R30.0 Dysuria; Y90.8 Blood alcohol level of 240 mg/100 ml or more; Z79.899 Other long term (current) drug therapy; Z91.51 Personal history of suicidal behavior; Z81.1 Family history of alcohol abuse and dependence; Z81.3 Family history of other psychoactive substance abuse and dependence
CPT/HCPCS: 36415; 70450; 74176; 76000; 80053; 80307; 81001; 82077; 83690; 85025; 85610; 85730; 87086; 87088; 93005; 99284; 99406; J7120; A4216; C1769; J2405

== ENCOUNTER 2022-02-19 16:54 | Inpatient (IN) | payer MEDICAID, SELFPAY ==
[2022-02-19 16:55] VITALS: BP 126/77; PULSE 100; RESP 18; TEMP 36.6; O2SAT 96; BMI 29.2
[2022-02-19 16:58] VITALS: BP 126/77; PULSE 103; RESP 19; TEMP 36.6; O2SAT 98
--- NOTE | 2022-02-19 17:48 | EX.ED.SAOD ---
HPI History of Present Illness Chief Complaint: ETOH Intox Narrative Narrative: 56-year-old male presenting for alcohol detox. He states he drinks every day. Today he had about 7 or 8 twisted teas. He was here yesterday but did not want to be admitted. He states today he wants to go to detox and residential. He denies drug abuse. He states that he does have some right rib pain but this is not new. He states he has a couple of rib fractures from previous. PFSH PFS Medical History Alcohol abuse Alcohol abuse Alcoholism Anxiety Bipolar disorder Cannabis abuse Depression ETOH abuse H/O appendicitis Hepatitis History of intravenous drug use in remission Osteoarthritis Smoker Tobacco abuse Home Medications citalopram 20 mg tablet 20 mg PO DAILY Check with primary doctor 11/18/21 [History Last Taken Unknown] gabapentin 600 mg tablet 600 mg PO TID Check with primary doctor 11/18/21 [History Last Taken Unknown] nicotine 21 mg/24 hr daily transdermal patch 1 patch transdermal Q24H Check with primary doctor 11/18/21 [History Last Taken Unknown] bupropion HCl 150 mg tablet,12 hr sustained-release (Wellbutrin SR) 150 mg PO DAILY depression 01/24/22 [History Last Taken Unknown] Allergy/AdvReac Type Severity Reaction Status Date / Time No Known Allergies Allergy Verified 01/24/22 15:10 Family History Father Throat cancer Alcoholism and drug addiction in family Mother No cardiac disease Surgical History Status post appendectomy Social History household members: significant other current occupational status: employed current occupation: Factory Work Smoking Status: Current every day smoker tobacco type: cigarettes alcohol intake: current alcohol intake frequency: 3 or more drinks per day details: 1/5 of vodka a day substance use type: former substance user Date of last use: Early and marijuana what type of physical activity do you participate in: none ROS ROS ED Constitutional Constitutional ED: Denies chills or fever(s) Eyes Eyes: Denies change in vision ENT ENT ED: Denies rhinorrhea or sore throat Cardiovascular Cardiovascular: Reports other Details: Right rib ; Denies palpitations Respiratory/Chest Respiratory/Chest: Denies cough or dyspnea Gastrointestinal Gastrointestinal: Denies abdominal pain or constipation Genitourinary Genitourinary ED: Denies dysuria Musculoskeletal Musculoskeletal: Denies arthralgias or back pain Integumentary Denies abscess or Abrasions Neurologic Neurologic: Denies headache(s) or paresthesias Psychiatric Psychiatric: Denies anxiety or depression EXAM Physical Exam Const Vital Signs: 02/19/22 16:55 02/19/22 16:58 02/19/22 19:03 Temperature 97.9 F 97.9 F Temperature Source Temporal Temporal Pulse Rate 100 103 H 85 Respiratory Rate 18 19 H 15 Blood Pressure 126/77 H 126/77 H 128/76 H Blood Pressure Mean 93 93 93 Blood Pressure Source Monitor Pulse Ox 96 98 97 Oxygen Delivery Method Room Air Room Air Room Air Positive well nourished General Appearance ED: NAD; Negative for pallor HEENT Reports moist mucous membranes atraumatic Eyes PERRL and EOMs intact bilaterally General Eye ED: Negative for pale conjunctiva or scleral icterus Resp normal respiratory effort and clear to auscultation bilaterally Auscultation: Negative for rales, rhonchi or wheezes Cardio regular rate and regular rhythm Neuro oriented x3 and CN's II-XII intact bilaterally Sensorium / Orientation: alert Motor Exam: strength 5/5 throughout Psych mental status grossly normal Skin General Skin Exam: Negative for jaundice or pallor MDM MDM MDM Narrative Medical decision making narrative: Patient presenting for alcohol detox. He admits to drinking 7 or 8 twisted teas today. Blood work was obtained and his CBC shows a normal white blood cell count of 10.2. Hemoglobin hematocrit stable. Platelets normal at 288. Creatinine normal at 0.0. Potassium was low at 2.7 and this was repleted with 40 mill equivalents of p.o. potassium. Magnesium level was checked and was 1.8. LFTs unremarkable. Urine drug screen positive for amphetamines and benzodiazepines. EtOH was elevated at 236. No signs of withdrawal currently. Patient discussed with hospitalist for admission. Impression: 1. EtOH abuse 2. Presentation for EtOH detox 3. Hypokalemia Lab Data Attestation: I reviewed the patient's lab results. Labs: Laboratory Results - last 24 hr 02/19/22 02/19/2222 17:40 17:40 17:40 WBC 10.2 RBC 4.26 L Hgb 14.4 Hct 39.8 L MCV 93.4 MCH 33.8 H MCHC 36.2 H RDW Std Deviation 41.8 RDW Coeff of Shekhar 12.1 Plt Count 288 MPV 10.3 Immature Gran % (Auto) 0.300 Neut % (Auto) 35.1 L Lymph % (Auto) 51.3 H [place] % (Auto) 6.6 Eos % (Auto) 5.7 H Baso % (Auto) 1.0 Absolute Neuts (auto) 3.6 Absolute Lymphs (auto) 5.23 H Nucleated RBC % 0 Differential Comment SCANNED Sodium 132 L Potassium 2.7 L* Chloride 93 L Carbon Dioxide 27.0 Anion Gap 12 BUN 5 L Creatinine 0.80 Estim Creat Clear Calc 107.73 Est GFR (MDRD) Af Amer 128 Est GFR (MDRD) Non-Af 106 BUN/Creatinine Ratio 6.2 L Glucose 133 H Calcium 8.5 Magnesium Total Bilirubin 0.70 AST 64 H ALT 56 Alkaline Phosphatase 132 H Total Protein 8.0 Albumin 3.5 Globulin 4.5 H Albumin/Globulin Ratio 0.8 L Urine Opiates Screen Urine Methadone Screen Ur Barbiturates Screen Ur Phencyclidine Scrn Ur Amphetamines Screen MDMA (Ecstasy) Screen U Benzodiazepines Scrn Urine Cocaine Screen U Cannabinoids Screen Ur Drug Screen Comment Ethyl Alcohol 236.0 02/19/22 02/19/22 17:40 18:25 WBC RBC Hgb Hct MCV MCH MCHC RDW Std Deviation RDW Coeff of Shekhar Plt Count MPV Immature Gran % (Auto) Neut % (Auto) Lymph % (Auto) [place] % (Auto) Eos % (Auto) Baso % (Auto) Absolute Neuts (auto) Absolute Lymphs (auto) Nucleated RBC % Differential Comment Sodium Potassium Chloride Carbon Dioxide Anion Gap BUN Creatinine Estim Creat Clear Calc Est GFR (MDRD) Af Amer Est GFR (MDRD) Non-Af BUN/Creatinine Ratio Glucose Calcium Magnesium 1.8 Total Bilirubin AST ALT Alkaline Phosphatase Total Protein Albumin Globulin Albumin/Globulin Ratio Urine Opiates Screen NEGATIVE Urine Methadone Screen NEGATIVE Ur Barbiturates Screen NEGATIVE Ur Phencyclidine Scrn NEGATIVE Ur Amphetamines Screen POSITIVE H MDMA (Ecstasy) Screen NEGATIVE U Benzodiazepines Scrn POSITIVE H Urine Cocaine Screen NEGATIVE U Cannabinoids Screen NEGATIVE Ur Drug Screen Comment Ethyl Alcohol Discharge Plan Disposition Disposition: Acute Care Hospital [facility] Discharge Date/Time: 02/19/22 21:32
[2022-02-19 18:14] LABS: Absolute Lymphocyte Count 5.23 X10^3/uL (0.83-4.51); Absolute Neutrophil Count 3.6 X10^3/uL (2.0-7.7); Eosinophil# 0.58 X10^3/uL; Eosinophils% 5.7 % (0-5); Hematocrit 39.8 % (40-54); Hemoglobin 14.4 g/dL (13.0-16.5); Lymphocyte # 5.23 X10^3/ul (0.83-4.51); Lymphocyte % 51.3 % (19-41); Mean Corp Hgb Conc 36.2 g/dL (32-36); Mean Corpuscular Hgb 33.8 pg (27.0-32.0); Mean Corpuscular Volume 93.4 fL (80-94); Mean Platelet Vol. 10.3 fl (6.2-12.0); Monocyte# 0.67 X10^3/uL; Monocyte% 6.6 % (0-10); NRBC Flagged by Analyzer 0 % (0-5); Neutrophil # 3.58 X10^3/uL (2.7-7.7); Neutrophil % 35.1 % (47-70); POSITIVE DIFFERENTIAL YES; Platelet Count 288 K/mm3 (150-450); RBC Distribution Width CV 12.1 % (11.6-14.6); RBC Distribution Width SD 41.8 fl (35.1-43.9); Red Blood Count 4.26 M/mm3 (4.6-6.2); White Blood Count 10.2 K/mm3 (4.4-11.0)
[2022-02-19 18:16] LABS: Differential Indicated SCAN CRITERIA MET
[2022-02-19 18:36] LABS: ALB/GLOB Ratio 0.8 RATIO (0.9-2.4); AST(SGOT) 64 U/L (15-37); Alanine Aminotransfer ALT/SGPT 56 U/L (16-61); Albumin, Serum 3.5 g/dL (3.2-5.0); Alkaline Phosphatase 132 U/L (45-117); Anion Gap 12 (5-15); BUN 5 mg/dL (7-18); BUN/Creat Ratio 6.2 RATIO (10-20); Calcium,Total 8.5 mg/dL (8.5-10.1); Chloride 93 mmol/L (98-107); EST Glomerular Filtration Rate 106 mL/min (>60); Est Glom Filt Rate - Afr Amer 128 mL/min (>60); Estimated Creatinine Clearance 107.73 ml/min; Globulin 4.5 g/dL (2.2-4.2); Glucose 133 mg/dL (74-106); Potassium 2.7 mmol/L (3.5-5.1); Sodium Level 132 mmol/L (136-145)
[2022-02-19] MEDS: Potassium Chloride Oral Tablet 20 MEQ 60 MEQ PO (18:40)
[2022-02-19 18:45] LABS: Differential Comment SCANNED
[2022-02-19 18:50] LABS: Amphetamine Urine VISTA POSITIVE (<1000 ng/mL); Barbiturate Urine VISTA NEGATIVE (< 200 ng/mL); Benzodiazepine Urine VISTA POSITIVE (< 200 ng/mL); Cocaine Urine VISTA NEGATIVE (< 300 ng/mL); Ecstacy Urine VISTA NEGATIVE (< 500 ng/mL); Methadone Urine VISTA NEGATIVE (< 300 ng/mL); PCP Urine VISTA NEGATIVE (< 25 ng/mL); THC Urine VISTA NEGATIVE (< 50 ng/mL); Vista UDS pH Range 5
[2022-02-19 18:52] LABS: Magnesium 1.8 mg/dL (1.6-2.6)
[2022-02-19 19:03] VITALS: BP 128/76; PULSE 85; RESP 15; O2SAT 97
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
--- NOTE | 2022-02-19 20:29 | CM.ED ---
PAULINO called [place] from [facility] and advised of patient's presentation to the ED for [facility] program. Geneva will update Ananda, addiction therapist. Dory NAVARRETE
[2022-02-19 21:43] VITALS: BMI 27.4
[2022-02-19 22:01] VITALS: BP 110/51; PULSE 87; RESP 18; TEMP 36.6; O2SAT 97
[2022-02-19] MEDS: Phenobarbital 32.4 MG Tablet 64.8 MG PO (22:25)
[2022-02-20 01:58] VITALS: BP 131/69; PULSE 85; RESP 18; TEMP 36.6; O2SAT 93
[2022-02-20] MEDS: Ibuprofen 400 MG Tablet PO ×3 (02:02→17:14)
[2022-02-20] MEDS: Phenobarbital 32.4 MG Tablet 64.8 MG PO ×6 (02:02→21:53)
[2022-02-20 05:31] VITALS: BP 112/75; PULSE 75; RESP 18; TEMP 36.4; O2SAT 96
[2022-02-20] MEDS: Gabapentin 300 MG Capsule PO (05:36)
[2022-02-20 06:48] LABS: Anion Gap 10 (5-15); BUN 8 mg/dL (7-18); BUN/Creat Ratio 7.7 RATIO (10-20); Calcium,Total 8.4 mg/dL (8.5-10.1); Chloride 100 mmol/L (98-107); Creatinine, Serum 1.04 mg/dL (0.70-1.30); EST Glomerular Filtration Rate 79 mL/min (>60); Est Glom Filt Rate - Afr Amer 95 mL/min (>60); Estimated Creatinine Clearance 82.87 ml/min; Glucose 108 mg/dL (74-106); Potassium 3.6 mmol/L (3.5-5.1); Sodium Level 137 mmol/L (136-145)
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
[2022-02-20 09:28] VITALS: BP 107/63; PULSE 68; RESP 16; TEMP 36.6; O2SAT 95
[2022-02-20] MEDS: Folic Acid 1 MG Tablet PO (09:33)
[2022-02-20] MEDS: Thiamine Hydrochloride 100 MG Tablet PO (09:33)
[2022-02-20] MEDS: Ondansetron 8 MG Tablet PO (09:37)
[2022-02-20] MEDS: hydrOXYzine PAM 25 MG Capsule 50 MG PO ×2 (09:38→21:53)
--- NOTE | 2022-02-20 11:11 | ADDICTION ---
This credit underwriter met with PT to conduct ASAM, MSE, AUDIT, DUDIT assessments and to plan for d/c. PT A+Ox4 and participated actively. All assessments completed and placed in PT's chart. PT plans to f/u with follow-up treatment services, however pt has left AMA from 3 residential treatment centers in the past 6 month therefore, he may not be eligible for placement. Will update if placed.
[2022-02-20 13:24] VITALS: BP 109/77; PULSE 66; RESP 16; TEMP 37.1; O2SAT 97
[2022-02-20 17:12] VITALS: BP 115/74; PULSE 77; RESP 16; TEMP 36.9; O2SAT 95
[2022-02-20 21:42] VITALS: BP 106/68; PULSE 90; RESP 14; TEMP 36.6; O2SAT 98
[2022-02-20] MEDS: traZODone 100 MG Tablet PO (21:53)
[2022-02-21] MEDS: Phenobarbital 32.4 MG Tablet 64.8 MG PO ×3 (01:32→09:58)
[2022-02-21 01:33] VITALS: BP 112/67; PULSE 94; RESP 16; TEMP 36.6; O2SAT 97
--- NOTE | 2022-02-21 07:51 | PCM.PN.HOSP ---
Subjective Subjective Slept well last night. Objective Data Objective Data Vital Signs: Vital Signs Temp Pulse Resp BP Pulse Ox O2 Del Method 36.6 C 94 16 112/67 97 Room Air 02/21/22 01:02/21/22 01:02/21/22 01:02/21/22 01:33 02/21/22 01:02/21/22 01:33 Oxygen Delivery Method Room Air Weight: 86.9 kg Body Mass Index (BMI) 27.4 Intake & Output: Intake and Output for Last 24 Hours 02/19/22 02/20/22 02/21/22 23:59 23:59 23:59 Intake Total 200 / 200 Output Total 0 / 0 Balance 200 / 200 Lab / Micro Data Result Diagrams: 02/19/22 17:40 02/20/22 05:55 Physical Exam Const Constitutional Narrative: Up in bed. No acute distress. Neuro oriented x3 Psych affect normal Assessment & Plan Assessment/Plan (1) Alcohol abuse: PLAN: Alcohol dependence and desire for detoxification Review of record showed multiple admission for alcohol detoxification. Toxicology showed ethanol level of 236. Urine amphetamine was positive. Urine benzodiazepine was positive for Patient be started on phenobarbital and other adjunctive medications: Gabapentin as needed; dicyclomine as needed; Vistaril as needed; Imodium as needed; trazodone as needed; Zofran as needed; scheduled thiamine; and schedule folic acid. Monitor CIWA score Had a long discussion with the patient today and forced that he needs to be an active participant in regards to his treatment. That he needs counseling in order for him to work out his week periods where he wants to drink. Discussed with addiction medicine, patient apparently has left AGAINST MEDICAL ADVICE through numerous programs which limits his options for follow-up (2) Hyponatremia: PLAN: Resolved. Suspect due to Twisted Tea no additional work up (3) Hypokalemia: PLAN: Hypokalemia Potassium presentation was 2.7. 60 mEq potassium prescribed at the emergency department. Trend BMP. Magnesium level normal at 1.8. (4) Tobacco abuse: PLAN: Tobacco abuse Counseled Nicotine patch prescribed. PLAN: Plan Methamphetamine abuse: complicates ability to remain sober. DVT prophylaxis Low risk Encourage to ambulate
[2022-02-21 09:54] VITALS: BP 104/76; PULSE 84; RESP 16; TEMP 36.6; O2SAT 94
[2022-02-21] MEDS: Folic Acid 1 MG Tablet PO (09:58)
[2022-02-21] MEDS: Thiamine Hydrochloride 100 MG Tablet PO (09:58)
--- NOTE | 2022-02-21 11:17 | DS.PCM_ITS ---
Providers Date of Admission: 02/19/22 Primary Care Physician: No Primary Care Phys Reason For Visit: ALCOHOL DETOXIFICATION Diagnosis Discharge Diagnosis (1) Alcohol abuse: Status: Acute Code(s): F10.10 - Alcohol abuse, uncomplicated Plan: Alcohol dependence and desire for detoxification Review of record showed multiple admission for alcohol detoxification. Toxicology showed ethanol level of 236. Urine amphetamine was positive. Urine benzodiazepine was positive for Patient be started on phenobarbital and other adjunctive medications: Gabapentin as needed; dicyclomine as needed; Vistaril as needed; Imodium as needed; trazodone as needed; Zofran as needed; scheduled thiamine; and schedule folic acid. Monitor CIWA score Had a long discussion with the patient today and forced that he needs to be an a ctive participant in regards to his treatment. That he needs counseling in order for him to work out his week periods where he wants to drink. Discussed with addiction medicine, patient apparently has left AGAINST MEDICAL ADVICE through numerous programs which limits his options for follow-up (2) Hyponatremia: Status: Acute Code(s): E87.1 - Hypo-osmolality and hyponatremia Plan: Resolved. Suspect due to Twisted Tea no additional work up (3) Hypokalemia: Status: Acute Code(s): E87.6 - Hypokalemia Plan: Hypokalemia Potassium presentation was 2.7. 60 mEq potassium prescribed at the emergency department. Trend BMP. Magnesium level normal at 1.8. (4) Tobacco abuse: Status: Acute Code(s): Z72.0 - Tobacco use Plan: Tobacco abuse Counseled Nicotine patch prescribed. Plan Methamphetamine abuse: complicates ability to remain sober. DVT prophylaxis Low risk Encourage to ambulate Medications at Discharge Home Medications citalopram 20 mg tablet 20 mg PO DAILY Check with primary doctor 11/18/21 gabapentin 600 mg tablet 600 mg PO TID Check with primary doctor 11/18/21 nicotine 21 mg/24 hr daily transdermal patch 1 patch transdermal Q24H Check with primary doctor 11/18/21 bupropion HCl 150 mg tablet,12 hr sustained-release (Wellbutrin SR) 150 mg PO DAILY depression 01/24/22 Hospital Course Operations None Procedures None Summary of Care Provided Hospital Course: Patient treatment for alcohol withdrawal. Patient just left AMA from an residential program on the eighth and came here. Patient was started on phenobarbital and stated that he had to get a hold with his girlfriend and leaving AGAINST MEDICAL ADVICE again. Being that patient is left to programs AGAINST MEDICAL ADVICE, even though 1 was an outside program, patient will not be able to be readmitted to the [facility] program here for at least the next 30 days. Additionally, patient does seek residential programs he is unfortunate burned a lot of bridges and he may not have much of any options available for him. Weight / BMI Weight Weight: 86.9 kg Body Mass Index (BMI) 27.4 ABG / Lab / Microbiology Data Result Diagrams: 02/19/22 17:40 02/20/22 05:55 Meaningful Use Info Meaningful Use Diagnoses (Choose all that apply): None applicable Discharge Plan Admission Admit Date/Time: 02/19/22 20:23 Attending Provider: Bryan Da Silva Primary Care Provider: Care Physician,Cha Primary Consulting Providers: Manjinder Mitchell Discharge Orders/Prescriptions Prescriptions: No Action bupropion HCl [Wellbutrin SR] 150 mg tablet sustained-release 12 hr 150 mg PO DAILY gabapentin 600 mg Tablet 600 mg PO TID citalopram 20 mg Tablet 20 mg PO DAILY nicotine 21 mg/24 hr Patch 24 Hour 1 patch TRANSDERMAL Q24H Referrals / Follow Up: Care Physician,No Primary [Primary Care Provider] - Disposition Discharge Orders: Discharge Patient (Routine); Ordered 02/21/22 Ordered By: Dr. Bryan Da Silva Charges/Coding Visit Charges Inpatient E&M: 66405 Disch Hosp
--- NOTE | 2022-02-21 11:26 | NURSING ---
Patient has asked several times for his girlfriend to be called. This RN informed him that when he is discharged his girlfriend will be notified of DC but not until then. Isha, Addiction Coordinator in room to enforce same. He states he wants to leave and sign out AMA. Papers were signed and patient's belongings were retrieved from Security and Security escorted patient off the floor with belongings.
== END 2022-02-21 11:25 | disposition left against medical advice (07) | DRG 770 ==
LOC: ED 18:28 → MS3 21:07
PROVIDERS: Admitting Provider Hospitalist; Emergency Provider Student in an Organized Health Care Education/Training Program
DX: F10.239 Alcohol dependence with withdrawal, unspecified (principal); E87.1 Hypo-osmolality and hyponatremia; F31.9 Bipolar disorder, unspecified; F15.10 Other stimulant abuse, uncomplicated; E87.6 Hypokalemia; F17.210 Nicotine dependence, cigarettes, uncomplicated; F41.9 Anxiety disorder, unspecified; Y90.7 Blood alcohol level of 200-239 mg/100 ml; Z53.29 Procedure and treatment not carried out because of patient's decision for other reasons; Z79.899 Other long term (current) drug therapy; Z81.1 Family history of alcohol abuse and dependence; Z81.3 Family history of other psychoactive substance abuse and dependence
CPT/HCPCS: 36415; 80048; 80053; 80307; 82077; 83735; 85025; 99283; 99406

== ENCOUNTER → 2022-07-11 | Outpatient (CLI) | payer MEDICAID, SELFPAY ==
[2022-07-11 08:55] LABS: Absolute Lymphocyte Count 2.29 X10^3/uL (0.83-4.51); Absolute Neutrophil Count 2.6 X10^3/uL (2.0-7.7); Basophil# 0.05 X10^3/uL; Basophil% 0.9 % (0-1); Eosinophil# 0.32 X10^3/uL; Eosinophils% 5.5 % (0-5); Hematocrit 46.7 % (40-54); Hemoglobin 15.8 g/dL (13.0-16.5); Lymphocyte # 2.29 X10^3/ul (0.83-4.51); Lymphocyte % 39.1 % (19-41); Mean Corp Hgb Conc 33.8 g/dL (32-36); Mean Corpuscular Hgb 33.5 pg (27.0-32.0); Mean Corpuscular Volume 99.2 fL (80-94); Mean Platelet Vol. 10.4 fl (6.2-12.0); Monocyte# 0.56 X10^3/uL; Monocyte% 9.6 % (0-10); NRBC Flagged by Analyzer 0 % (0-5); Neutrophil # 2.62 X10^3/uL (2.7-7.7); Neutrophil % 44.6 % (47-70); Platelet Count 184 K/mm3 (150-450); RBC Distribution Width SD 44.2 fl (35.1-43.9); Red Blood Count 4.71 M/mm3 (4.6-6.2); White Blood Count 5.9 K/mm3 (4.4-11.0)
[2022-07-11 09:23] LABS: Hemoglobin A1c 5.2 % (3.8-5.6)
[2022-07-11 09:25] LABS: ALB/GLOB Ratio 0.9 RATIO (0.9-2.4); AST(SGOT) 41 U/L (15-37); Alanine Aminotransfer ALT/SGPT 48 U/L (16-61); Albumin, Serum 3.7 g/dL (3.2-5.0); Alkaline Phosphatase 75 U/L (45-117); Anion Gap 5 (5-15); BUN 13 mg/dL (7-18); BUN/Creat Ratio 14.1 RATIO (10-20); CRP 3.71 mg/L (0.0-3.0); Calcium,Total 9.3 mg/dL (8.5-10.1); Chloride 107 mmol/L (98-107); Creatinine, Serum 0.92 mg/dL (0.70-1.30); EST Glomerular Filtration Rate 90 mL/min (>60); Est Glom Filt Rate - Afr Amer 109 mL/min (>60); Ferritin 133 ng/mL (26-388); Glucose 84 mg/dL (74-106); LDH 184 U/L (87-241); Potassium 4.1 mmol/L (3.5-5.1); Protein, Total 7.7 g/dL (6.4-8.2); Sodium Level 141 mmol/L (136-145)
[2022-07-11 09:40] LABS: Prothrombin Time (Protime)PT. 12.9 SECONDS (11.7-14.9)
[2022-07-11 09:50] LABS: Erythrocyte Sedimentation Rate 16 mm/hr (0-20)
[2022-07-11 10:08] LABS: HIV - WCH Non-Reactive (Nonreactive); Hepatitis B Surface Antibody Non-Reactive
[2022-07-12 14:09] LABS: Anti-Centromere B Ab <0.2 AI (0.0-0.9); Anti-Chromatin <0.2 AI (0.0-0.9); Anti-Jo <0.2 AI (0.0-0.9); Anti-Scleroderma-70 AB <0.2 AI (0.0-0.9); RNP Ab <0.2 AI (0.0-0.9); SJOGREN'S Anti-SS-A test < 0.2 AI (0.0-0.9); SJOGREN'S Anti-SS-B test < 0.2 AI (0.0-0.9); Smith Ab <0.2 AI (0.0-0.9)
[2022-07-12 19:39] LABS: Anti-Mitochondrial AB <20.0 Units (0.0-20.0); Anti-dsDNA Ab 1 IU/mL (0-9)
[2022-07-13 22:06] LABS: Angiotensin Convert Enzyme 71 U/L (14-82); Ceruloplasmin 23.1 mg/dL (16.0-31.0); Cytoplasmic Ab (C-ANCA) <1:20 titer (Neg:<1:20); HCV Quant. RNA PCR 7870000 IU/mL (.); Hepatitis C Genotype 2b (.)
[2022-07-13 22:31] LABS: Anti-Smooth Muscle ABS 8 Units (0-19); Copper, Serum or Plasma 114 ug/dL (69-132); HCV log 10 6.896 (.); Haptoglobin 65 mg/dL (29-370); Perinuclear Ab (P-ANCA) <1:20 titer (Neg:<1:20)
[2022-07-16 16:05] LABS: Bilirubin, Direct 0.26 mg/dL (0.00-0.30)
== END | disposition home or self-care (01) ==
LOC: LAB 08:13
PROVIDERS: PCP Nurse Practitioner Family; Referring Provider Nurse Practitioner Adult Health; Visit Provider Nurse Practitioner Adult Health
DX: B19.20 Unspecified viral hepatitis C without hepatic coma (principal)
CPT/HCPCS: 36415; 80053; 82105; 82140; 82164; 82248; 82390; 82525; 82728; 83010; 83036; 83516; 83615; 85025; 85610; 85652; 86140; 86225; 86235; 86256; 86703; 86706; 87522; 87902

== ENCOUNTER → 2022-07-25 | Outpatient (CLI) | payer MEDICAID, SELFPAY ==
--- NOTE | 2022-07-25 08:01 | US_ITS ---
STUDY: ABDOMINAL ULTRASOUND - RIGHT UPPER QUADRANT REASON FOR VISIT: Male, 56 years old hep C, elastography TECHNIQUE: Ultrasound evaluation of the right upper quadrant was performed with real-time and static gale-scale imaging. TECHNICAL QUALITY: Adequate. COMPARISON: None. FINDINGS: Liver: The liver measures 15.6 cm. There is increased echogenicity consistent with fatty infiltration. The bile ducts are within normal limits. There is hepatic color flow. The direction of portal flow is hepatopetal. There is no demonstrated mass lesion. Gallbladder: Normal distended gallbladder. The gallbladder wall measures 3 mm. There is a negative sonographic Hagan''s sign. There is no pericholecystic fluid. There are no gallstones. Common Bile Duct (C.B.D.): The common bile duct measures 5 mm. Pancreas: Normal size of the head, body and tail of the pancreas. There is normal echogenicity of the pancreas. There is no demonstrated pancreatic mass or cyst. Right Kidney: Normal size of the right kidney. The right kidney measures 12.9 cm x 4.4 cm x 4.6 cm. Normal renal cortex. The right cortex measures 1.2 cm. There is no demonstrated renal mass or cyst. There is no right hydronephrosis. US/Abdomen Limited IMPRESSION: Fatty infiltration of the liver. Electronically Signed: Toro Mac MD at 15:46 EST ,
--- NOTE | 2022-07-25 08:01 | US_ITS ---
STUDY: ABDOMINAL ULTRASOUND - ELASTOGRAPHY REASON FOR VISIT: Male, 56 years old. Hepatitis C. TECHNIQUE: Liver stiffness measurements were obtained on a iCopyright RS 85 ultrasound machine using a CA 1-7 probe following the SRU guidelines. 3 measurements were obtained using a 2-D-SWE method. The IQR/M was 13% suggesting a quality data set. TECHNICAL QUALITY: Adequate. COMPARISON: Comparison is made with prior study done earlier in the day. FINDINGS: Liver: Fatty infiltration of the liver. Median liver stiffness measured 13 kPa. US/Elastography Parenchyma/Organ IMPRESSION: Liver stiffness measures 13 kPa compatible with F3-F4 (Moderate to severe liver fibrosis) Metavir score. Electronically Signed: Toro Mac MD at 15:47 EST ,
== END | disposition home or self-care (01) ==
LOC: US 07:58
PROVIDERS: PCP Nurse Practitioner Family; Visit Provider Nurse Practitioner Adult Health
DX: B19.20 Unspecified viral hepatitis C without hepatic coma (principal)
CPT/HCPCS: 76705; 76981

== ENCOUNTER 2022-08-05 09:51 | Inpatient (IN) | payer MEDICAID, SELFPAY ==
[2022-08-05] VITALS (7 sets, daily range): BP systolic 112–148; BP diastolic 62–99; PULSE 84–118; RESP 16–24; TEMP 36.5–37.2; O2SAT 95–99; BMI 28.8; BMI 27.9
--- NOTE | 2022-08-05 10:14 | EDS_ITS ---
HPI History of Present Illness Chief Complaint: ETOH Intox Informant: patient Narrative Narrative: Patient states he is an alcoholic and requesting detox, wants to stop drinking. He has been drinking heavily for years, typically 1/5 of high-prove vodka per day, and no other beverages or beer. Denies using any other substances with this. He denies any suicidal ideation or physical illness recently. He does have anxiety and tremors with some nausea in the mornings when he does not drink, his last drink was this morning and right now he is feeling fine. States he has a history of hepatitis C and fatty liver disease. He has had no bleeding from anywhere or hemorrhoids or melena. No history of cirrhosis that he knows of. [facility] Medical History Alcohol abuse Alcohol abuse Alcoholism Anxiety Bipolar disorder Cannabis abuse Depression ETOH abuse Fatty liver, alcoholic H/O appendicitis Hepatitis History of intravenous drug use in remission Osteoarthritis Smoker Tobacco abuse Home Medications citalopram 20 mg tablet 20 mg PO DAILY Check with primary doctor 11/18/21 [Hist ory Last Taken Unknown] bupropion HCl 150 mg tablet,12 hr sustained-release (Wellbutrin SR) 150 mg PO DAILY depression 01/24/22 [History Last Taken Unknown] sofosbuvir 400 mg-velpatasvir 100 mg tablet (Epclusa) 1 tab PO DAILY 12 weeks #84 tabs 07/31/22 [Rx Last Taken Unknown] Allergy/AdvReac Type Severity Reaction Status Date / Time No Known Allergies Allergy Verified 08/05/22 09:53 Family History (Reviewed 06/20/22 @ 14:08 by Lenora Martinez SPECIAL DELIVERY MESSENGER, SPECIAL DELIVERY MESSENGER-C) Father Throat cancer Alcoholism and drug addiction in family Mother No cardiac disease Surgical History Status post appendectomy Social History household members: significant other current occupational status: employed current occupation: Factory Work Smoking Status: Current every day smoker tobacco type: cigarettes alcohol intake: current alcohol intake frequency: 3 or more drinks per day details: 1/5 of vodka a day substance use type: former substance user Date of last use: Early and marijuana what type of physical activity do you participate in: none ROS ROS ED Constitutional Constitutional ED: Reports other Details: Shaky when gets up in the morning before drinking alcohol ; Denies chills or fever(s) Eyes Eyes: Denies change in vision or diplopia ENT ENT ED: Denies rhinorrhea or sore throat Cardiovascular Cardiovascular: Denies chest pain or palpitations Respiratory/Chest Respiratory/Chest: Denies cough or dyspnea Gastrointestinal Gastrointestinal: Denies abdominal pain, diarrhea, hematemesis, hematochezia, hemorrhoids, nausea or vomiting Genitourinary Genitourinary ED: Reports other Details: Dark discolored urine but no urinary symptoms ; Denies dysuria or hematuria Musculoskeletal Musculoskeletal: Denies back pain or neck pain Integumentary Denies abscess or rash Neurologic Neurologic: Denies headache(s), paresthesias or weakness Psychiatric Psychiatric: Reports anxiety; Denies suicidal thoughts EXAM Physical Exam Const Vital Signs: 08/05/22 09:53 Temperature 97.7 F L Temperature Source Temporal Pulse Rate 101 H Respiratory Rate 24 H Blood Pressure 125/99 H Blood Pressure Mean 107 Pulse Ox 96 Oxygen Delivery Method Room Air Positive well nourished and well developed General Appearance ED: well developed and NAD HEENT Reports moist mucous membranes normocephalic and atraumatic Eyes PERRL and EOMs intact bilaterally Neck full ROM and supple Resp normal respiratory effort and clear to auscultation bilaterally Effort and Inspection: able to speak in complete sentences Cardio regular rate, regular rhythm and no murmurs GI non-tender and non-distended Auscultation: normoactive bowel sounds Palpation: soft Back/Spine no CVA tenderness General Back: other FROM Extremity normal to inspection General Extremety ED: Negative for edema, pulses abnormal or tenderness General Extremity: Negative for edema or pulses abnormal Neuro oriented x3, CN's II-XII intact bilaterally and no sensory deficits noted Sensorium / Orientation: awake and alert Motor Exam: strength 5/5 throughout Psych mental status grossly normal and thought process normal Psych Narrative: Intoxicated, cooperative, pleasant. Skin no rashes or lesions noted and no wounds MDM MDM MDM Narrative Medical decision making narrative: Labs and toxicology obtained and noted. Discussed with hospitalist for admission for detox from alcohol. Patient remains clinically and hemodynamically stable in ED. Lab Data Attestation: I reviewed the patient's lab results. Labs: Laboratory Results - last 24 hr 08/05/22 08/05/22 08/05/22 10:20 10:20 10:29 WBC 7.2 RBC 4.74 Hgb 16.4 Hct 46.6 MCV 98.3 H MCH 34.6 H MCHC 35.2 RDW Std Deviation 44.8 H RDW Coeff of Shekhar 12.3 Plt Count 179 MPV 9.9 Immature Gran % (Auto) 0.300 Neut % (Auto) 31.4 L Lymph % (Auto) 54.7 H [place] % (Auto) 7.8 Eos % (Auto) 4.5 Baso % (Auto) 1.3 H Absolute Neuts (auto) 2.3 Absolute Lymphs (auto) 3.92 Nucleated RBC % 0 PT INR Sodium Potassium Chloride Carbon Dioxide Anion Gap BUN Creatinine Estim Creat Clear Calc Est GFR (MDRD) Af Amer Est GFR (MDRD) Non-Af BUN/Creatinine Ratio Glucose Calcium Total Bilirubin AST ALT Alkaline Phosphatase Total Protein Albumin Globulin Albumin/Globulin Ratio Urine Color Yellow Urine Clarity Clear Urine pH 7.0 Ur Specific [place] 1.005 Urine Protein Negative Urine Glucose (UA) Normal Urine Ketones Negative Urine Occult Blood Negative Urine Nitrite Negative Urine Bilirubin Negative Urine Urobilinogen Normal Ur Leukocyte Esterase Negative Urine RBC 0 SEEN Urine WBC 0 SEEN Ur Squamous Epith Cells 0 SEEN Urine Bacteria 0 SEEN Urine Mucus 0 SEEN Urine Opiates Screen NEGATIVE Urine Methadone Screen NEGATIVE Ur Barbiturates Screen NEGATIVE Ur Phencyclidine Scrn NEGATIVE Ur Amphetamines Screen NEGATIVE MDMA (Ecstasy) Screen NEGATIVE U Benzodiazepines Scrn NEGATIVE Urine Cocaine Screen NEGATIVE U Cannabinoids Screen NEGATIVE Ur Drug Screen Comment 08/05/22 08/05/22 10:29 10:29 WBC RBC Hgb Hct MCV MCH MCHC RDW Std Deviation RDW Coeff of Shekhar Plt Count MPV Immature Gran % (Auto) Neut % (Auto) Lymph % (Auto) [place] % (Auto) Eos % (Auto) Baso % (Auto) Absolute Neuts (auto) Absolute Lymphs (auto) Nucleated RBC % PT 13.9 INR 1.1 Sodium 143 Potassium 4.1 Chloride 108 H Carbon Dioxide 31.0 Anion Gap 4 L BUN 10 Creatinine 0.86 Estim Creat Clear Calc 100.21 Est GFR (MDRD) Af Amer 119 Est GFR (MDRD) Non-Af 99 BUN/Creatinine Ratio 11.7 Glucose 104 Calcium 8.7 Total Bilirubin 0.40 AST 82 H ALT 73 H Alkaline Phosphatase 105 Total Protein 7.9 Albumin 3.6 Globulin 4.3 H Albumin/Globulin Ratio 0.8 L Urine Color Urine Clarity Urine pH Ur Specific [place] Urine Protein Urine Glucose (UA) Urine Ketones Urine Occult Blood Urine Nitrite Urine Bilirubin Urine Urobilinogen Ur Leukocyte Esterase Urine RBC Urine WBC Ur Squamous Epith Cells Urine Bacteria Urine Mucus Urine Opiates Screen Urine Methadone Screen Ur Barbiturates Screen Ur Phencyclidine Scrn Ur Amphetamines Screen MDMA (Ecstasy) Screen U Benzodiazepines Scrn Urine Cocaine Screen U Cannabinoids Screen Ur Drug Screen Comment Discharge Plan Dx/Rx/DC Orders Clinical Impression: Alcohol dependence Disposition Disposition: Acute Care Hospital [facility]
[2022-08-05 10:25] LABS: Bacteria 0 SEEN /hpf (None Seen); Mucous, Urine 0 SEEN /hpf (<or=2+); Red Blood Cells-Urine 0 SEEN /hpf (0-5); Squamous Epithelial Cells - UA 0 SEEN /hpf (0-5); White Blood Cells 0 SEEN /hpf (0-5)
[2022-08-05 10:28] LABS: Color, Urine Yellow (Yellow); Glucose, Dipstick Normal (Normal); Ketone-Dipstick Negative (Negative); Leukocyte Esterase-Dipstick Negative /ul (Negative); Nitrite-Dipstick Negative (Negative); Occult Blood-Urine Negative /ul (Negative); Protein-Dipstick Negative (Negative); Specific Gravity, Urine 1.005 (1.002-1.030); Urine Bilirubin Dipstick Negative (Negative); Urine Clarity Clear (Clear); Urine Urobilinogen Normal (Normal)
[2022-08-05 10:35] LABS: Absolute Lymphocyte Count 3.92 X10^3/uL (0.83-4.51); Absolute Neutrophil Count 2.3 X10^3/uL (2.0-7.7); Basophil# 0.09 X10^3/uL; Basophil% 1.3 % (0-1); Eosinophil# 0.32 X10^3/uL; Eosinophils% 4.5 % (0-5); Hematocrit 46.6 % (40-54); Hemoglobin 16.4 g/dL (13.0-16.5); Lymphocyte # 3.92 X10^3/ul (0.83-4.51); Lymphocyte % 54.7 % (19-41); Mean Corp Hgb Conc 35.2 g/dL (32-36); Mean Corpuscular Hgb 34.6 pg (27.0-32.0); Mean Corpuscular Volume 98.3 fL (80-94); Mean Platelet Vol. 9.9 fl (6.2-12.0); Monocyte# 0.56 X10^3/uL; Monocyte% 7.8 % (0-10); NRBC Flagged by Analyzer 0 % (0-5); Neutrophil # 2.26 X10^3/uL (2.7-7.7); Neutrophil % 31.4 % (47-70); Platelet Count 179 K/mm3 (150-450); RBC Distribution Width CV 12.3 % (11.6-14.6); RBC Distribution Width SD 44.8 fl (35.1-43.9); Red Blood Count 4.74 M/mm3 (4.6-6.2); White Blood Count 7.2 K/mm3 (4.4-11.0)
[2022-08-05 10:38] LABS: Amphetamine Urine VISTA NEGATIVE (<1000 ng/mL); Barbiturate Urine VISTA NEGATIVE (< 200 ng/mL); Benzodiazepine Urine VISTA NEGATIVE (< 200 ng/mL); Cocaine Urine VISTA NEGATIVE (< 300 ng/mL); Ecstacy Urine VISTA NEGATIVE (< 500 ng/mL); Methadone Urine VISTA NEGATIVE (< 300 ng/mL); PCP Urine VISTA NEGATIVE (< 25 ng/mL); THC Urine VISTA NEGATIVE (< 50 ng/mL); Vista UDS pH Range 7
[2022-08-05 10:45] LABS: International Normalized Ratio 1.1; Prothrombin Time (Protime)PT. 13.9 SECONDS (11.7-14.9)
[2022-08-05 10:53] LABS: ALB/GLOB Ratio 0.8 RATIO (0.9-2.4); AST(SGOT) 82 U/L (15-37); Alanine Aminotransfer ALT/SGPT 73 U/L (16-61); Albumin, Serum 3.6 g/dL (3.2-5.0); Alkaline Phosphatase 105 U/L (45-117); Anion Gap 4 (5-15); BUN 10 mg/dL (7-18); BUN/Creat Ratio 11.7 RATIO (10-20); Calcium,Total 8.7 mg/dL (8.5-10.1); Chloride 108 mmol/L (98-107); Creatinine, Serum 0.86 mg/dL (0.70-1.30); EST Glomerular Filtration Rate 99 mL/min (>60); Est Glom Filt Rate - Afr Amer 119 mL/min (>60); Estimated Creatinine Clearance 100.21 ml/min; Globulin 4.3 g/dL (2.2-4.2); Glucose 104 mg/dL (74-106); Potassium 4.1 mmol/L (3.5-5.1); Protein, Total 7.9 g/dL (6.4-8.2); Sodium Level 143 mmol/L (136-145)
--- NOTE | 2022-08-05 11:31 | NURSING ---
DR PATEL FOR DR WEINBERG
--- NOTE | 2022-08-05 11:41 | NURSING ---
MED SURG [facility]OPPERI ALCOHOL DEPENDENCE
[2022-08-05] MEDS: Phenobarbital 32.4 MG Tablet 64.8 MG PO ×3 (13:08→20:06)
[2022-08-05] MEDS: Ibuprofen 600 MG Tablet PO (13:08)
[2022-08-05] MEDS: hydrOXYzine PAM 25 MG Capsule 50 MG PO ×2 (13:08→20:06)
--- NOTE | 2022-08-05 13:44 | HP.PCM.HOS_ITS ---
HPI - General General Date of Admission: 08/05/22 Date of Service: 08/05/22 Chief Complaint: Requesting alcohol withdrawal HPI Narrative CORY RODRIGES, is a 56 M who presents seeking treatment for alcohol withdrawal. Patient's last drink was this morning. Patient's alcohol level was 345. Patient drinks fifth of vodka per day. Patient concerned he may start developing alcohol withdrawal symptoms such as tremors which she is not exper iencing right now. Does complain of a headache though. [facility] Medical History Alcohol abuse Alcohol abuse Alcoholism Anxiety Bipolar disorder Cannabis abuse Depression ETOH abuse Fatty liver, alcoholic H/O appendicitis Hepatitis History of intravenous drug use in remission Osteoarthritis Smoker Tobacco abuse Home Medications sofosbuvir 400 mg-velpatasvir 100 mg tablet (Epclusa) 1 tab PO DAILY 12 weeks #84 tabs 07/31/22 [Rx Last Taken Unknown] bupropion HCl 300 mg 24 hr tablet, extended release 300 mg PO DAILY mood 08/05/22 [History Last Taken Unknown] Allergy/AdvReac Type Severity Reaction Status Date / Time No Known Allergies Allergy Verified 08/05/22 09:53 Family History Father Throat cancer Alcoholism and drug addiction in family Mother No cardiac disease Surgical History Status post appendectomy Social History household members: significant other current occupational status: employed current occupation: Factory Work Smoking Status: Current every day smoker tobacco type: cigarettes alcohol intake: current alcohol intake frequency: 3 or more drinks per day details: 1/5 of vodka a day substance use type: former substance user Date of last use: Early and marijuana what type of physical activity do you participate in: none ROS ROS Narrative All review of systems were negative except as mentioned above in the history of present illness and the other review of systems. Vital Signs Vital Signs Vital Signs: 08/05/22 09:53 08/05/22 11:33 08/05/22 11:37 Temperature 36.5 C L 36.6 C 36.6 C Temperature Source Temporal Oral Oral Pulse Rate 101 H 87 84 Respiratory Rate 24 H 18 18 Blood Pressure 125/99 H 112/62 112/62 Blood Pressure Mean 107 78 78 Blood Pressure Source Monitor Blood Pressure Position Semi-Fowlers Blood Pressure Location Right Arm Pulse Ox 96 97 96 Oxygen Delivery Method Room Air Room Air Room Air 08/05/22 12:05 08/05/22 12:26 Temperature 36.8 C Temperature Source Oral Pulse Rate 92 Respiratory Rate 18 18 Blood Pressure 120/74 Blood Pressure Mean 89 Blood Pressure Source Monitor Blood Pressure Position Semi-Fowlers Blood Pressure Location Right Arm Pulse Ox 99 Oxygen Delivery Method Room Air Room Air Weight Weight: 88.4 kg Body Mass Index (BMI) 27.9 Physical Exam Narrative - Physical Exam General: Alert, Oriented x3, Cooperative HEENT: Atraumatic, PERRLA, EOMI, Normocephalic Oral: Moist Mucosa, No Gingival or Mucosal Lesions/ Ulcerations Neck: Supple, No JVD, Negative Carotid Bruits Lungs: Clear to auscultation, Normal air movement Cardiovascular: Regular rate, Normal S1, Normal S2, No murmurs Abdomen: Bowel Sounds Present, Soft, Non Tender, Non-Distended, No Hepato- splenomegaly Extremities: No clubbing, No cyanosis, No edema, Capillary Refill Less than 3 Seconds Skin: No rashes, No breakdown Musculoskeletal: No Tenderness to Palpation of Joints or Extremities Neurological: Neuro grossly intact Psych/Mental Status: Normal Affect, Appropriate Results Lab / Micro Data Result Diagrams: 08/05/22 10:29 08/05/22 10:29 Labs: Laboratory Results - last 24 hr 08/05/22 10:20: Urine Opiates Screen NEGATIVE, Urine Methadone Screen NEGATIVE, Ur Barbiturates Screen NEGATIVE, Ur Phencyclidine Scrn NEGATIVE, Ur Amphetamines Screen NEGATIVE, MDMA (Ecstasy) Screen NEGATIVE, U Benzodiazepines Scrn NEGATIVE, Urine Cocaine Screen NEGATIVE, U Cannabinoids Screen NEGATIVE, Ur Drug Screen Comment 08/05/22 10:20: Urine Color Yellow, Urine Clarity Clear, Urine pH 7.0, Ur Specific [place] 1.005, Urine Protein Negative, Urine Glucose (UA) Normal, Urine Ketones Negative, Urine Occult Blood Negative, Urine Nitrite Negative, Urine Bilirubin Negative, Urine Urobilinogen Normal, Ur Leukocyte Esterase Negative, Urine RBC 0 SEEN, Urine WBC 0 SEEN, Ur Squamous Epith Cells 0 SEEN, Urine Bacteria 0 SEEN, Urine Mucus 0 SEEN 08/05/22 10:29: WBC 7.2, RBC 4.74, Hgb 16.4, Hct 46.6, MCV 98.3 H, MCH 34.6 H, MCHC 35.2, RDW Std Deviation 44.8 H, RDW Coeff of Shekhar 12.3, Plt Count 179, MPV 9.9, Immature Gran % (Auto) 0.300, Neut % (Auto) 31.4 L, Lymph % (Auto) 54.7 H, [place] % (Auto) 7.8, Eos % (Auto) 4.5, Baso % (Auto) 1.3 H, Absolute Neuts (auto) 2.3, Absolute Lymphs (auto) 3.92, Nucleated RBC % 0 08/05/22 10:29: PT 13.9, INR 1.1 08/05/22 10:29: Sodium 143, Potassium 4.1, Chloride 108 H, Carbon Dioxide 31.0, Anion Gap 4 L, BUN 10, Creatinine 0.86, Estim Creat Clear Calc 100.21, Est GFR (MDRD) Af Amer 119, Est GFR (MDRD) Non-Af 99, BUN/Creatinine Ratio 11.7, Glucose 104, Calcium 8.7, Total Bilirubin 0.40, AST 82 H, ALT 73 H, Alkaline Phosphatase 105, Total Protein 7.9, Albumin 3.6, Globulin 4.3 H, Albumin/Globulin Ratio 0.8 L 08/05/22 10:29: Ethyl Alcohol 345.0 H* Assessment & Plan Assessment/Plan (1) Alcohol abuse: PLAN: Patient requesting treatment for alcohol withdrawal. No signs of alcohol withdrawal at this time but patient drinks 1/5 of vodka per day. Patient will be on phenobarbital taper when the time is right. Supportive medication for other symptoms. PLAN: Plan Tobacco abuse: Nicotine patch Hepatitis C: Continue with sofosbuvir/velpatasvir VTE prophylaxis low risk not indicated. Charges/Coding Visit Charges Inpatient E&M: 05724 Init Hosp L2
[2022-08-05] MEDS: Gabapentin 300 MG Capsule PO (17:12)
[2022-08-05] MEDS: Ondansetron 8 MG Tablet PO (17:12)
[2022-08-05] MEDS: traZODone 100 MG Tablet PO (20:06)
[2022-08-06 00:25] VITALS: BP 107/65; PULSE 96; RESP 16; TEMP 36.6; O2SAT 93
[2022-08-06] MEDS: hydrOXYzine PAM 25 MG Capsule 50 MG PO ×5 (00:28→21:08)
[2022-08-06] MEDS: Phenobarbital 32.4 MG Tablet 64.8 MG PO ×6 (00:28→21:07)
[2022-08-06 05:06] VITALS: BP 118/72; PULSE 66; RESP 14; TEMP 36.9; O2SAT 95
[2022-08-06] MEDS: Citalopram 20 MG Tablet PO (09:39)
[2022-08-06] MEDS: buPROPion (XL) 150 MG TABLET.XL PO (09:39)
[2022-08-06] MEDS: Folic Acid 1 MG Tablet PO (09:40)
[2022-08-06] MEDS: Thiamine Hydrochloride 100 MG Tablet PO (09:47)
[2022-08-06 10:00] VITALS: BP 122/83; PULSE 77; RESP 14; TEMP 36.4; O2SAT 99
--- NOTE | 2022-08-06 10:58 | PCM.PN.HOSP ---
Subjective Subjective No issues overnight, CIWA score of 2 Objective Data Objective Data Vital Signs: Vital Signs Temp Pulse Resp BP Pulse Ox O2 Del Method 97.5 F L 77 14 122/83 H 99 Room Air 08/06/22 10:00 08/06/22 10:00 08/06/22 10:00 08/06/22 10:00 08/06/22 10:00 08/06/22 10:00 Oxygen Delivery Method Room Air Weight: 194 lb 14.218 oz Body Mass Index (BMI) 27.9 Lab / Micro Data Result Diagrams: 08/05/22 10:29 08/05/22 10:29 Labs: Laboratory Results - last 24 hr 08/05/22 10:29: Ethyl Alcohol 345.0 H* Physical Exam Narrative General: Alert, Oriented x3, Cooperative, No apparent distress HEENT: Atraumatic, PERRLA, EOMI, Normocephalic Oral: Moist Mucosa Neck: Supple, No JVD Lungs: Clear to auscultation, Normal air movement, No rhonchi, No wheeze, No rales Cardiovascular: Regular rate, Regular Rhythm, Normal S1, Normal S2, No murmurs Abdomen: Soft, Non Tender, Non-Distended, No Hepato-splenomegaly Extremities: No edema, Capillary Refill Less than 3 Seconds Skin: No rashes, No breakdown Musculoskeletal: No Tenderness to Palpation of Joints or Extremities Neurological: Cranial nerves II-XII grossly intact, Motor Exam 5/5 strength throughout, Sensory exam intact to light touch and pain Psych/Mental Status: Flat affect, Appropriate Assessment & Plan Assessment/Plan (1) Alcohol abuse: PLAN: Patient requesting treatment for alcohol withdrawal. No signs of alcohol withdrawal at this time but patient drinks 1/5 of vodka per day. Continue with the alcohol withdrawal protocol We will have him follow-up with 180 as an outpatient PLAN: Plan Tobacco abuse: Nicotine patch Hepatitis C: Continue with sofosbuvir/velpatasvir VTE prophylaxis low risk not indicated. Charges/Coding Visit Charges Inpatient E&M: 15801 Subs Hosp L2
--- NOTE | 2022-08-06 11:55 | ADDICTION ---
This bond writer met with PT to conduct ASAM, MSE, AUDIT, DUDIT assessments and to plan for d/c. PT A+Ox4 and participated actively. All assessments completed, and placed in PT's chart. PT plans to f/u with [facility] for follow-up residential treatment services if approved. This is patients 10th time in detox since within a year. Pt reports 2 1/2 months of sobriety prior to relapse. This worker informed him that he will not be eligible for the [facility] program in the future if he does not complete outpatient treatment program directly after d/c. PT did not indicate a need for transportation post d/c from [facility].
[2022-08-06] MEDS: Gabapentin 300 MG Capsule PO (11:58)
[2022-08-06] MEDS: Acetaminophen 500 MG Tablet PO ×2 (11:58→16:50)
[2022-08-06] MEDS: 0.9% Saline Lock 10 ML Syringe IV (12:51)
--- NOTE | 2022-08-06 15:57 | CHAPLAIN ---
Type of Pastoral Visit _x__ Initial Visit ___ Follow-up Visit ___ On-call Visit ___ General Patient Visit ___ Spiritual Assessment ___ Family Conference ___ Bereavement ___ Rapid Response ___ Code Blue ___ Other (describe below) Pastoral Care Referral From _x__ Patient ___ Family ___ Nurse ___ Physician ___ Property Insurance Inspector ___ Proofing Machine Operator ___ Other (describe below) Sacrament/Intervention _x__ Active listening ___ Anointing ___ Sabianist ___ Bereavement ___ Communion ___ Luda exploration ___ ___ Life review _x__ Prayer ___ Reconciliation ___ Sacrament of Sick _x__ Supportive presence ___ Wedding ___ Other (describe below) Pastoral Comments patient is awake but admits to being 'groggy'; pt states that otherwise he is feeling fairly okay; pt says that he has tried detox before and just wants to get better; pt is given support and encouragement for trying yet again; pt welcomes a prayer and then asks for a return visit tomorrow with the hopes that he will feel better to talk
[2022-08-06 16:52] VITALS: BP 134/81; PULSE 78; RESP 14; TEMP 36.9; O2SAT 100
[2022-08-06 20:55] VITALS: BP 133/80; PULSE 90; RESP 18; TEMP 36.8; O2SAT 98
[2022-08-06] MEDS: traZODone 100 MG Tablet PO (21:08)
[2022-08-07] MEDS: Phenobarbital 32.4 MG Tablet 64.8 MG PO ×3 (01:32→08:11)
[2022-08-07 02:59] VITALS: BP 110/65; PULSE 71; RESP 18; TEMP 36.3; O2SAT 97
[2022-08-07] MEDS: buPROPion (XL) 150 MG TABLET.XL PO (08:11)
[2022-08-07] MEDS: Folic Acid 1 MG Tablet PO (08:11)
[2022-08-07] MEDS: Thiamine Hydrochloride 100 MG Tablet PO (08:12)
[2022-08-07] MEDS: Citalopram 20 MG Tablet PO (08:12)
[2022-08-07] MEDS: hydrOXYzine PAM 25 MG Capsule 50 MG PO (08:12)
[2022-08-07 08:14] VITALS: BP 152/96; PULSE 72; RESP 14; TEMP 36.2; O2SAT 99
--- NOTE | 2022-08-07 08:57 | PCM.DC ---
Discharge Instructions Diet Discharge Diet: No restrictions Activity Discharge Activity: Return to Normal Activity and No Restrictions Return to work on:: 08/13/22 Dressing / Incision Call your doctor if you observe: Fever of 101 or Higher, Shortness of breath, Dizziness, Fainting spells, Swelling in the ankles, Chest pain and Increased palpitations (irregular heartbeat) Follow Up Care Test Results: Test results from this visit will be discussed in further detail at your follow-up appointment, if applicable. Discharge Plan Admission Admit Date/Time: 08/05/22 11:31 Attending Provider: Ludwig Waters Primary Care Provider: Elissa Kilpatrick Consulting Providers: Bryan Da Silva Discharge Orders/Prescriptions Prescriptions: Continued bupropion HCl 300 mg tablet extended release 24 hr 300 mg PO DAILY sofosbuvir-velpatasvir [Epclusa] 400-100 mg tablet 1 tab PO DAILY 84 Days Qty: 84 0RF Referrals / Follow Up: Elissa Kilpatrick, BEHAVIORAL PSYCHOLOGIST-C [Primary Care Provider] - Within 1 Week Disposition Disposition (needs filled in before D/C Order can be placed): Home, Self Care
--- NOTE | 2022-08-07 08:59 | PCM.DC.SUM ---
Providers Date of Admission: 08/05/22 Primary Care Physician: ALIYA. Elissa Kilpatrick, ALIYA-C Reason For Visit: ALCOHOL WITHDRAWAL Diagnosis Discharge Diagnosis (1) Alcohol abuse: Status: Acute Code(s): F10.10 - Alcohol abuse, uncomplicated Medications at Discharge Home Medications sofosbuvir 400 mg-velpatasvir 100 mg tablet (Epclusa) 1 tab PO DAILY 12 weeks #84 tabs 07/31/22 bupropion HCl 300 mg 24 hr tablet, extended release 300 mg PO DAILY mood 08/05/22 Hospital Course Operations None Procedures None Summary of Care Provided Minutes Spent on Discharge: 34 Hospital Course: Per HPI: CORY RODRIGES, is a 56 M who presents seeking treatment for alcohol withdrawal.? Patient's last drink was this morning.? Patient's alcohol level was 345.? Patient drinks fifth of vodka per day.? Patient concerned he may start developing alcohol withdrawal symptoms such as tremors which she is not experiencing right now.? Does complain of a headache though. Hospital Course: 1. Alcohol abuse?56-year-old male presents to the hospital with detox, this is not his first time going through detox here. He did meet with 180 and is going to do intensive outpatient therapy down in [place]. He requested to be discharged today because he says that he feels fine and he does not want to stay any longer. Discussed with him the plan for discharge expressed understanding of the risk benefits of going home and he wants to go home today. Physical Exam Narrative General: Alert, Oriented x3, Cooperative, No apparent distress HEENT: Atraumatic, PERRLA, EOMI, Normocephalic Oral: Moist Mucosa Neck: Supple, No JVD Lungs: Clear to auscultation, Normal air movement, No rhonchi, No wheeze, No rales Cardiovascular: Regular rate, Regular Rhythm, Normal S1, Normal S2, No murmurs Abdomen: Soft, Non Tender, Non-Distended, No Hepato-splenomegaly Extremities: No edema, Capillary Refill Less than 3 Seconds Skin: No rashes, No breakdown Musculoskeletal: No Tenderness to Palpation of Joints or Extremities Neurological: Cranial nerves II-XII grossly intact, Motor Exam 5/5 strength throughout, Sensory exam intact to light touch and pain Psych/Mental Status: Flat affect, Appropriate Weight / BMI Weight Weight: 194 lb 14.218 oz Body Mass Index (BMI) 27.9 ABG / Lab / Microbiology Data Result Diagrams: 08/05/22 10:29 08/05/22 10:29 D/C Instructions Discharge Diet: No restrictions Return to work on: 08/13/22 Call your doctor if you observe: Fever of 101 or Higher, Shortness of breath, Dizziness, Fainting spells, Swelling in the ankles, Chest pain and Increased palpitations (irregular heartbeat) Meaningful Use Info Meaningful Use Diagnoses (Choose all that apply): None applicable Discharge Plan Admission Admit Date/Time: 08/05/22 11:31 Attending Provider: Ludwig Waters Primary Care Provider: Elissa Kilpatrick Consulting Providers: Bryan Da Silva Discharge Orders/Prescriptions Prescriptions: Continued bupropion HCl 300 mg tablet extended release 24 hr 300 mg PO DAILY sofosbuvir-velpatasvir [Epclusa] 400-100 mg tablet 1 tab PO DAILY 84 Days Qty: 84 0RF Referrals / Follow Up: Elissa Kilpatrick, MICROGRINDER OPERATOR-C [Primary Care Provider] - Within 1 Week Disposition Disposition (needs filled in before D/C Order can be placed): Home, Self Care Charges/Coding Visit Charges Inpatient E&M: 95216 Disch Hosp >30min
--- NOTE | 2022-08-07 09:59 | PHA.DC.MR ---
Pharmacy Service has performed discharge medication reconciliation for this patient. The patient's discharge medication list was reviewed for discrepancies and discrepancies were resolved. Home Medications sofosbuvir 400 mg-velpatasvir 100 mg tablet (Epclusa) 1 tab PO DAILY 12 weeks #84 tabs 07/31/22 bupropion HCl 300 mg 24 hr tablet, extended release 300 mg PO DAILY mood 08/05/22
== END 2022-08-07 10:10 | disposition home or self-care (01) | DRG 775 ==
LOC: ED 10:32 → MS3 12:03
PROVIDERS: Emergency Provider Emergency Medicine; PCP Nurse Practitioner Family; Visit Provider Family Medicine
DX: F10.139 Alcohol abuse with withdrawal, unspecified (principal); B19.20 Unspecified viral hepatitis C without hepatic coma; F17.210 Nicotine dependence, cigarettes, uncomplicated; Y90.8 Blood alcohol level of 240 mg/100 ml or more; Z79.899 Other long term (current) drug therapy; Z81.1 Family history of alcohol abuse and dependence
CPT/HCPCS: 80053; 80307; 81001; 82077; 85025; 85610; 99284; 99406; A4216

== ENCOUNTER → 2022-12-28 | Outpatient (CLI) | payer MEDICAID, SELFPAY ==
[2022-12-28 12:12] LABS: Absolute Lymphocyte Count 2.89 X10^3/uL (0.83-4.51); Absolute Neutrophil Count 3.8 X10^3/uL (2.0-7.7); Basophil# 0.08 X10^3/uL; Eosinophils% 8.6 % (0-5); Hematocrit 42.9 % (40-54); Lymphocyte # 2.89 X10^3/ul (0.83-4.51); Lymphocyte % 35.4 % (19-41); Mean Corpuscular Hgb 33.6 pg (27.0-32.0); Mean Corpuscular Volume 96.2 fL (80-94); Mean Platelet Vol. 10.2 fl (6.2-12.0); Monocyte# 0.62 X10^3/uL; Monocyte% 7.6 % (0-10); NRBC Flagged by Analyzer 0 % (0-5); Neutrophil % 46.4 % (47-70); Platelet Count 210 K/mm3 (150-450); RBC Distribution Width CV 11.9 % (11.6-14.6); RBC Distribution Width SD 41.6 fl (35.1-43.9); Red Blood Count 4.46 M/mm3 (4.6-6.2); White Blood Count 8.2 K/mm3 (4.4-11.0)
[2022-12-28 12:42] LABS: ALB/GLOB Ratio 0.9 RATIO (0.9-2.4); AST(SGOT) 35 U/L (15-37); Alanine Aminotransfer ALT/SGPT 24 U/L (16-61); Albumin, Serum 3.6 g/dL (3.2-5.0); Alkaline Phosphatase 75 U/L (45-117); Anion Gap 5 (5-15); BUN 17 mg/dL (7-18); BUN/Creat Ratio 20.9 RATIO (10-20); Calcium,Total 8.9 mg/dL (8.5-10.1); Chloride 110 mmol/L (98-107); Creatinine, Serum 0.81 mg/dL (0.70-1.30); EST Glomerular Filtration Rate 104 mL/min (>60); Est Glom Filt Rate - Afr Amer 126 mL/min (>60); Glucose 97 mg/dL (74-106); Potassium 4.5 mmol/L (3.5-5.1); Protein, Total 7.6 g/dL (6.4-8.2); Sodium Level 139 mmol/L (136-145)
== END | disposition home or self-care (01) ==
PROVIDERS: PCP Nurse Practitioner Family; Referring Provider Internal Medicine Gastroenterology; Visit Provider Internal Medicine Gastroenterology
DX: B19.20 Unspecified viral hepatitis C without hepatic coma (principal)
CPT/HCPCS: 87902; 36415; 80053; 85025

== ENCOUNTER → 2023-05-31 | Outpatient (CLI) | payer MEDICAID, SELFPAY ==
--- NOTE | 2023-05-31 08:22 | US_ITS ---
STUDY: ABDOMINAL ULTRASOUND - RIGHT UPPER QUADRANT; ELASTOGRAPHY REASON FOR VISIT: Male, 57 years old. Hepatitis C. TECHNIQUE: Ultrasound evaluation of the right upper quadrant was performed with real-time and static gale-scale imaging. Point quantification shear wave elastography was performe([employer]). TECHNICAL QUALITY: Adequate. COMPARISON: Comparison is made with prior study dated July 25, 2022. FINDINGS: Liver: The liver measures 17.7 cm. There is increased echogenicity consistent with fatty infiltration. The bile ducts are within normal limits. There is hepatic color flow. The direction of portal flow is hepatopetal. There is no demonstrated mass lesion. Median liver stiffness measured 11.4 kPa. Gallbladder: Normal distended gallbladder. The gallbladder wall measures 1.7 mm. There is a negative sonographic Hagan''s sign. There is no pericholecystic fluid. There are no gallstones. Common Bile Duct (C.B.D.): The common bile duct measures 4.4 mm. Pancreas: There is normal echogenicity of the visualized pancreas. There is no demonstrated pancreatic mass or cyst. Right Kidney: Normal size of the right kidney. The right kidney measures 12.2 cm x 5.3 cm x 4.6 cm. Normal renal cortex. The right cortex measures 1.1 cm. There is no demonstrated renal mass or cyst. There is no right hydronephrosis. US/ABD Limited w/ Elastography IMPRESSION: 1. Liver stiffness measures 11.4 kPa compatible with F2-F3 (Mild to moderate liver fibrosis) Metavir score. Electronically Signed: Toro Mac MD at 13:21 EST ,
== END | disposition home or self-care (01) ==
LOC: US 08:22
PROVIDERS: PCP Nurse Practitioner Family; Referring Provider Internal Medicine Gastroenterology; Visit Provider Internal Medicine Gastroenterology
DX: B19.20 Unspecified viral hepatitis C without hepatic coma (principal)
CPT/HCPCS: 76705; 76981

== ENCOUNTER 2024-02-25 13:04 | Inpatient (IN) | payer MEDICAID, SELFPAY ==
[2024-02-25 13:06] VITALS: BP 112/89; PULSE 112; RESP 16; TEMP 36.8; O2SAT 99; BMI 29.5
[2024-02-25 13:37] LABS: Absolute Lymphocyte Count 4.61 X10^3/uL (0.83-4.51); Absolute Neutrophil Count 3.5 X10^3/uL (2.0-7.7); Basophil% 1.1 % (0-1); Eosinophil# 0.26 X10^3/uL; Eosinophils% 2.8 % (0-5); Hematocrit 45.5 % (40-54); Hemoglobin 15.7 g/dL (13.0-16.5); Lymphocyte # 4.61 X10^3/ul (0.83-4.51); Mean Corp Hgb Conc 34.5 g/dL (32-36); Mean Corpuscular Hgb 33.3 pg (27.0-32.0); Mean Corpuscular Volume 96.6 fL (80-94); Mean Platelet Vol. 9.7 fl (6.2-12.0); Monocyte# 0.76 X10^3/uL; Monocyte% 8.2 % (0-10); NRBC Flagged by Analyzer 0 % (0-5); Neutrophil # 3.46 X10^3/uL (2.7-7.7); Neutrophil % 37.6 % (47-70); Platelet Count 240 K/mm3 (150-450); RBC Distribution Width CV 12.8 % (11.6-14.6); RBC Distribution Width SD 45.1 fl (35.1-43.9); Red Blood Count 4.71 M/mm3 (4.6-6.2); White Blood Count 9.2 K/mm3 (4.4-11.0)
[2024-02-25 13:52] LABS: Anion Gap 10 (5-15); BUN 7 mg/dL (7-18); BUN/Creat Ratio 8.6 RATIO (10-20); Calcium,Total 9.1 mg/dL (8.5-10.1); Chloride 108 mmol/L (98-107); Creatinine, Serum 0.81 mg/dL (0.70-1.30); EST Glomerular Filtration Rate 104 mL/min (>60); Est Glom Filt Rate - Afr Amer 126 mL/min (>60); Estimated Creatinine Clearance 115.53 ml/min; Glucose 129 mg/dL (74-106); Potassium 3.6 mmol/L (3.5-5.1); Sodium Level 141 mmol/L (136-145)
[2024-02-25 14:40] LABS: Amphetamine Urine VISTA NEGATIVE (<1000 ng/mL); Barbiturate Urine VISTA NEGATIVE (< 200 ng/mL); Benzodiazepine Urine VISTA NEGATIVE (< 200 ng/mL); Cocaine Urine VISTA POSITIVE (< 300 ng/mL); Ecstacy Urine VISTA NEGATIVE (< 500 ng/mL); Methadone Urine VISTA NEGATIVE (< 300 ng/mL); PCP Urine VISTA NEGATIVE (< 25 ng/mL); THC Urine VISTA NEGATIVE (< 50 ng/mL); Vista UDS pH Range 6
--- NOTE | 2024-02-25 15:06 | HP.PCM.HOS_ITS ---
HPI - General General Date of Admission: 02/25/24 Date of Service: 02/25/24 Chief Complaint: EtOH detox HPI Narrative CORY RODRIGES, is a 58 M who presents [facility] Medical History Alcohol abuse Alcohol abuse Alcoholism Anxiety Bipolar disorder Cannabis abuse Depression ETOH abuse Fatty liver, alcoholic H/O appendicitis Hepatitis History of intravenous drug use in remission Osteoarthritis Smoker Tobacco abuse Home Medications ?Medication ?Instructions ?Recorded ?Last Taken ?Type bupropion HCl 300 mg 24 hr tablet, 300 mg PO DAILY mood 08/05/22 Unknown History extended release Allergy/AdvReac Type Severity Reaction Status Date / Time No Known Allergies Allergy Verified 02/25/24 13:09 Family History Father Throat cancer Alcoholism and drug addiction in family Mother No cardiac disease Surgical History Status post appendectomy Social History household members: significant other current occupational status: employed current occupation: Factory Work Smoking Status: Current every day smoker tobacco type: cigarettes alcohol intake: current alcohol intake frequency: 3 or more drinks per day details: 1/5 of vodka a day substance use type: former substance user Date of last use: Early and marijuana what type of physical activity do you participate in: none Vital Signs Vital Signs Vital Signs: 02/25/24 13:06 Temperature 98.2 F Temperature Source Temporal Pulse Rate 112 H Respiratory Rate 16 Blood Pressure 112/89 H Blood Pressure Mean 96 Pulse Ox 99 Oxygen Delivery Method Room Air Weight Weight: 93.44 kg Body Mass Index (BMI) 29.5 Results Lab / Micro Data 02/25/24 13:25 02/25/24 13:25 Labs: Laboratory Results - last 24 hr 02/25/24 13:25: WBC 9.2, RBC 4.71, Hgb 15.7, Hct 45.5, MCV 96.6 H, MCH 33.3 H, MCHC 34.5, RDW Std Deviation 45.1 H, RDW Coeff of Shekhar 12.8, Plt Count 240, MPV 9.7, Immature Gran % (Auto) 0.300, Neut % (Auto) 37.6 L, Lymph % (Auto) 50.0 H, Gem % (Auto) 8.2, Eos % (Auto) 2.8, Baso % (Auto) 1.1 H, Absolute Neuts (auto) 3.5, Absolute Lymphs (auto) 4.61 H, Nucleated RBC % 0, Sodium 141, Potassium 3.6, Chloride 108 H, Carbon Dioxide 23.0, Anion Gap 10, BUN 7, Creatinine 0.81, Estim Creat Clear Calc 115.53, Est GFR (MDRD) Af Amer 126, Est GFR (MDRD) Non-Af 104, BUN/Creatinine Ratio 8.6 L, Glucose 129 H, Calcium 9.1, Ethyl Alcohol 279.0 02/25/24 13:55: Urine Opiates Screen NEGATIVE, Urine Methadone Screen NEGATIVE, Ur Barbiturates Screen NEGATIVE, Ur Phencyclidine Scrn NEGATIVE, Ur Amphetamines Screen NEGATIVE, MDMA (Ecstasy) Screen NEGATIVE, U Benzodiazepines Scrn NEGATIVE, Urine Cocaine Screen POSITIVE H, U Cannabinoids Screen NEGATIVE, Ur Drug Screen Comment Assessment & Plan Assessment/Plan PLAN: Plan Acute alcohol withdrawal/abuse -Patient has had previous issues with follow-up and remotely was recommended to be discharged to inpatient -Compliance is unclear and will need 180 to assess -Drinks about 1/5 of vodka a day -Indicates has been drinking almost all of his life -Start phenobarbital taper -CIWA with as needed Ativan -thiamine and folate -supportive medications for symptom management -180 consultation Suicidal ideation -Patient having suicidal ideation -Will place in suicide precautions -Will need to be cleared by crisis prior to discharge History of hepatitis C -Resulted from IV drug use -if can stay clean may qualify for outpt treatment once sober Tobacco abuse -Currently smokes approximately 1 pack of cigarettes daily -Continue patch available -Recommend cessation History of polysubstance abuse -IVDU with fentanyl and heroin remotely -Cocaine positive this admission -Patient has not used since the early 1999 Intermittent THC use -Recommend cessation DVT prophylaxis -Lovenox subcu as I do not anticipate patient to be extremely ambulatory CODE STATUS -Full code Charges/Coding Visit Charges Inpatient E&M: 65499 Init Hosp L2
--- NOTE | 2024-02-25 15:06 | PCM.HP.STD ---
HPI - General General Date of Admission: 02/25/24 Date of Service: 02/25/24 Chief Complaint: EtOH detox HPI Narrative CORY RODRIGES, is a 58 M who presented to the emergency department [facility] on 02/25/2024 with suicidal ideation and requesting detox from alcohol. Patient has longstanding issues with alcohol abuse and reports up until recently he was sober for about 8 to 10 months however he relapsed 2 to 3 months ago and is now drinking about 1/5 of vodka daily. He also has recently used cocaine but is not a habitual user and denies any ongoing marijuana use. He reports that he has a history of hepatitis C but was treated for this within the last 2 years. He has not use any IV drugs since. He complains that his depression has been problematic and is conjoined with anxiety. He drank prior to arrival. He also has some suicidal ideation but no ongoing plan at this time. He would like to follow-up with an outpatient if possible at [facility] in [place]. Patient has no symptoms of withdrawal at this time and reports that he is hungry. Vital signs on presentation showed temperature of 98.2, heart rate 112, blood pressure 112/89, respiratory rate was 16 and oxygen saturation was 99% on room air. CBC is overtly unremarkable. Chemistry panel is unremarkable. Toxicology screen is positive for cocaine and his ethyl alcohol level was 279. [facility] Medical History Alcohol dependence Fatty liver, alcoholic Alcoholism ETOH abuse Cannabis abuse Tobacco abuse Alcohol abuse History of intravenous drug use in remission Bipolar disorder Alcohol abuse Anxiety Depression Osteoarthritis Hepatitis Smoker H/O appendicitis Home Medications ?Medication ?Instructions ?Recorded ?Last Taken ?Type bupropion HCl 300 mg 24 hr tablet, 300 mg PO DAILY mood 08/05/22 Unknown History extended release Allergy/AdvReac Type Severity Reaction Status Date / Time No Known Allergies Allergy Verified 02/25/24 13:09 Family History Father Throat cancer Alcoholism and drug addiction in family Mother No cardiac disease Surgical History Status post appendectomy Social History household members: significant other current occupational status: employed current occupation: Factory Work Smoking Status: Current every day smoker tobacco type: cigarettes alcohol intake: current alcohol intake frequency: 3 or more drinks per day details: 1/ of vodka a day substance use type: former substance user Date of last use: Early and marijuana what type of physical activity do you participate in: none ROS Constitutional Constitutional: Denies anorexia, change in weight, chills, fatigue, fever(s), malaise, night sweats, weakness or other Eyes Eyes: Denies blurry vision, change in eye color, change in vision, discharge from eye(s), double vision, erythema, eye pain, loss of vision or other ENT HEENT: Denies abnormal hearing, dysphagia, ear pain, epistaxis, headache(s), hearing loss, nasal congestion, nasal discharge, post nasal drip, sinus pressure, sore throat or other Cardiovascular Cardiovascular: Denies chest pain, claudication, dyspnea on exertion, edema, lightheadedness, orthopnea, palpitations, paroxysmal nocturnal dyspnea, rapid heart rate, syncope or other Respiratory/Chest Respiratory/Chest: Denies cough, dyspnea, excessive phlegm production, hemoptysis, productive cough, shortness of breath at rest, shortness of breath with exertion, wheezing or other Gastrointestinal Gastrointestinal: Denies abdominal pain, coffee ground emesis, constipation, diarrhea, dyspepsia, hematemesis, hematochezia, loose stools, melena, nausea, vomiting or other Genitourinary Genitourinary: Denies burning urination, difficulty urinating, dysuria, hematuria, nocturia, urinary frequency, urinary hesitancy, urinary incontinence, urinary urgency or other Musculoskeletal Musculoskeletal: Denies arthralgias, back pain, joint pain, joint stiffness, joint swelling, myalgias, neck pain or other Neurologic Neurologic: Denies abnormal gait, abnormal speech, confusion, disequilibrium, dizziness, focal weakness, headache(s), numbness, paresthesias, seizure-like activity, seizures, syncope, tingling, tremor(s) or other Psychiatric Psychiatric: Reports anxiety, depression and suicidal ideation; Denies homicidal ideation or other Endocrine Endocrinology: Denies change in body appearance, cold intolerance, excessive sweating, heat intolerance, polydipsia, polyuria or other Hematologic/Lymphatic Hematologic/Lymphatic: Denies anemia, easy bleeding, easy bruising, lymphadenopathy or other Allergic/Immunologic Allergic/Immunologic: Denies rhinitis, hives, eczemia, asthma or other Vital Signs Vital Signs Vital Signs: 02/25/24 13:06 Temperature 98.2 F Temperature Source Temporal Pulse Rate 112 H Respiratory Rate 16 Blood Pressure 112/89 H Blood Pressure Mean 96 Pulse Ox 99 Oxygen Delivery Method Room Air Weight Weight: 93.44 kg Body Mass Index (BMI) 29.5 Physical Exam Const alert, oriented x3, no apparent distress and well nourished Constitutional Narrative: Overweight, apparently age, white male, lying in left side-lying in bed, appears comfortable, nontoxic, very pleasant, interacts appropriately, sitter at bedside General Appearance: cooperative HEENT normocephalic, head/scalp atraumatic, hearing grossly normal bilaterally and moist oral mucous membranes HEENT Narrative: Mallampati 3, no thrush Resp normal respiratory effort, no retractions, no use of accessory muscles and clear to auscultation bilaterally Resp Narrative: Diminished but clear Auscultation: Negative for rales, rhonchi or wheezes Cardio regular rate, regular rhythm, S1 normal heart sound, S2 normal heart sound, no murmurs, no rub, no gallops and no clicks GI normal to inspection, nondistended, normoactive bowel sounds, soft to palpation and non-tender Extremity no clubbing, cyanosis or edema Extremity Narrative: 2+ pedal pulses Neuro oriented x3, moves all extremities and no focal motor deficits Neuro Narrative: No tremor noted Speech: speech normal Psych Psych Narrative: Affect is slightly flat but eye contact is good, patient appears mildly anxious Mood & Affect: anxious Results Lab / Micro Data 02/25/24 13:25 02/25/24 13:25 Labs: Laboratory Results - last 24 hr 02/25/24 13:25: WBC 9.2, RBC 4.71, Hgb 15.7, Hct 45.5, MCV 96.6 H, MCH 33.3 H, MCHC 34.5, RDW Std Deviation 45.1 H, RDW Coeff of Shekhar 12.8, Plt Count 240, MPV 9.7, Immature Gran % (Auto) 0.300, Neut % (Auto) 37.6 L, Lymph % (Auto) 50.0 H, [place] % (Auto) 8.2, Eos % (Auto) 2.8, Baso % (Auto) 1.1 H, Absolute Neuts (auto) 3.5, Absolute Lymphs (auto) 4.61 H, Nucleated RBC % 0, Sodium 141, Potassium 3.6, Chloride 108 H, Carbon Dioxide 23.0, Anion Gap 10, BUN 7, Creatinine 0.81, Estim Creat Clear Calc 115.53, Est GFR (MDRD) Af Amer 126, Est GFR (MDRD) Non-Af 104, BUN/Creatinine Ratio 8.6 L, Glucose 129 H, Calcium 9.1, Ethyl Alcohol 279.0 02/25/24 13:55: Urine Opiates Screen NEGATIVE, Urine Methadone Screen NEGATIVE, Ur Barbiturates Screen NEGATIVE, Ur Phencyclidine Scrn NEGATIVE, Ur Amphetamines Screen NEGATIVE, MDMA (Ecstasy) Screen NEGATIVE, U Benzodiazepines Scrn NEGATIVE, Urine Cocaine Screen POSITIVE H, U Cannabinoids Screen NEGATIVE, Ur Drug Screen Comment Assessment & Plan Assessment/Plan (1) Alcohol abuse: (2) Suicidal ideation: PLAN: Plan Acute alcohol withdrawal/abuse -Patient has had previous issues with follow-up and remotely was recommended to be discharged to inpatient -Compliance is unclear and will need 180 to assess -Drinks about 1/5 of vodka a day -Start phenobarbital taper -CIWA with as needed Ativan -thiamine and folate -supportive medications for symptom management -180 consultation Suicidal ideation -Patient having suicidal ideation -Will place in suicide precautions -Will need to be cleared by crisis prior to discharge -Consult case management/social media analyst History of hepatitis C -Patient has been treated Tobacco abuse -Patient with ongoing tobacco abuse -Nicotine patch 21 mcg daily -Recommend cessation History of polysubstance abuse -IVDU with fentanyl and heroin remotely -Cocaine positive this admission Intermittent THC use -Remote use patient states he is not currently using Depression/anxiety -Patient feels that his anxiety and depression are leading him to utilize alcohol more than typical -Will start Zoloft 100 mg daily DVT prophylaxis -Lovenox subcu as I do not anticipate patient to be extremely ambulatory CODE STATUS -Full code Charges/Coding Visit Charges Inpatient E&M: 18460 Init Hosp L2
--- NOTE | 2024-02-25 15:40 | EX.ED.DYSGE1 ---
HPI History of Present Illness Chief Complaint: Suicidal Narrative Narrative: Chief complaint and HPI: Detox and suicidal ideation. Patient is a 58-year-old male with history of alcoholism, drug abuse, hepatitis C presents for evaluation of suicidal ideation and requesting detox. Patient states he wants to stop drinking. Patient states that he drinks about 1/5 of vodka per day. Patient does admit to cocaine abuse yesterday. He states he recently lost his job and has been drinking more heavily. States he has had increased depression. Endorses suicidal ideation. States he would overdose on drugs as a way to kill himself. Denies fever, chills, shortness of breath, chest pain, vomiting, dysuria. Review of systems: See HPI Medications: As listed on the chart Allergies: As listed on the chart PFSH: Per chart Vital signs: As listed on the chart. Reviewed. Physical exam: Gen: A&O x3, NAD Head: Normocephalic, atraumatic Eyes: No sclera icterus, conjunctiva clear ENT: Moist mucous membranes Neck: Trachea midline, No JVD CV: tachycardic, regular rhythm no murmurs, no peripheral edema Resp: Lungs CTA BL, no w/r/c GI: Abd soft, non-distended, non-tender, no r/r/g Musc: Full ROM, no deformity Skin: Warm, dry Neuro: Alert, oriented, grossly intact, sensation intact Psych: Cooperative, intermittently tearful [facility] Medical History Alcohol dependence Fatty liver, alcoholic Alcoholism ETOH abuse Cannabis abuse Tobacco abuse Alcohol abuse History of intravenous drug use in remission Bipolar disorder Alcohol abuse Anxiety Depression Osteoarthritis Hepatitis Smoker H/O appendicitis Home Medications ?Medication ?Instructions ?Recorded ?Last Taken ?Type bupropion HCl 300 mg 24 hr tablet, 300 mg PO DAILY mood 08/05/22 Unknown History extended release Allergy/AdvReac Type Severity Reaction Status Date / Time No Known Allergies Allergy Verified 02/25/24 13:09 Family History Father Throat cancer Alcoholism and drug addiction in family Mother No cardiac disease Surgical History Status post appendectomy Social History household members: significant other current occupational status: employed current occupation: [employer] Work Smoking Status: Current every day smoker tobacco type: cigarettes alcohol intake: current alcohol intake frequency: 3 or more drinks per day details: 1/5 of vodka a day substance use type: former substance user Date of last use: Early and marijuana what type of physical activity do you participate in: none EXAM Physical Exam Const Vital Signs: 02/25/24 13:06 Temperature 98.2 F Temperature Source Temporal Pulse Rate 112 H Respiratory Rate 16 Blood Pressure 112/89 H Blood Pressure Mean 96 Pulse Ox 99 Oxygen Delivery Method Room Air MDM MDM MDM Narrative Medical decision making narrative: 58-year-old male presents for evaluation of requesting detox as well as suicidal ideation. Patient is a known alcoholic. Has yet to drink today. Endorses suicidal ideation and states that he would overdose on drugs. Differential diagnosis includes but is not limited to suicidal ideation, depression, alcoholism. Given that patient is endorsing suicidal ideation he will be pink slipped. Labs obtained. CBC without leukocytosis or anemia. BMP unremarkable. Urine drug screen positive for cocaine which she admits to using. Alcohol level 279. Patient becoming more agitated and nauseous in the room. Ativan and Zofran ordered. Patient will require admission to the hospital for alcohol detox as well as suicidal ideation. I spoke with Dr. Ortega who accepted admission. Patient was updated of all results and the plan. He confirmed understanding. Impression: 1. Requesting detox from alcohol 2. Suicidal ideation 3. Cocaine abuse Lab Data Labs: Laboratory Results - last 24 hr 02/25/24 02/25/24 13:25 13:55 WBC 9.2 RBC 4.71 Hgb 15.7 Hct 45.5 MCV 96.6 H MCH 33.3 H MCHC 34.5 RDW Std Deviation 45.1 H RDW Coeff of Shekhar 12.8 Plt Count 240 MPV 9.7 Immature Gran % (Auto) 0.300 Neut % (Auto) 37.6 L Lymph % (Auto) 50.0 H [place] % (Auto) 8.2 Eos % (Auto) 2.8 Baso % (Auto) 1.1 H Absolute Neuts (auto) 3.5 Absolute Lymphs (auto) 4.61 H Nucleated RBC % 0 Sodium 141 Potassium 3.6 Chloride 108 H Carbon Dioxide 23.0 Anion Gap 10 BUN 7 Creatinine 0.81 Estim Creat Clear Calc 115.53 Est GFR (MDRD) Af Amer 126 Est GFR (MDRD) Non-Af 104 BUN/Creatinine Ratio 8.6 L Glucose 129 H Calcium 9.1 Urine Opiates Screen NEGATIVE Urine Methadone Screen NEGATIVE Ur Barbiturates Screen NEGATIVE Ur Phencyclidine Scrn NEGATIVE Ur Amphetamines Screen NEGATIVE MDMA (Ecstasy) Screen NEGATIVE U Benzodiazepines Scrn NEGATIVE Urine Cocaine Screen POSITIVE H U Cannabinoids Screen NEGATIVE Ur Drug Screen Comment Ethyl Alcohol 279.0 Discharge Plan Triage Chief Complaint: Suicidal Other Complaint: ETOH Intox ED Provider: Zaid Khan Dx/Rx/DC Orders Prescriptions: No Action bupropion HCl 300 mg tablet extended release 24 hr 300 mg PO DAILY Primary Care Provider: NOT,DEFINED Referrals: NOT,DEFINED [Primary Care Provider] - Print Language: Latvian
[2024-02-25 15:42] VITALS: BP 145/86; PULSE 90; RESP 16; TEMP 36.6; O2SAT 96
--- NOTE | 2024-02-25 15:46 | ED.RN ---
PT DENIES HOME MEDICATIONS. JUST STATES I WANT A RIDE HOME.
[2024-02-25] MEDS: Ondansetron 4 MG/2 ML Vial IV (15:56)
[2024-02-25] MEDS: LORazepam 2 MG/ML Syringe 1 MG IV ×2 (15:56→16:18)
--- NOTE | 2024-02-25 16:03 | ED.RN ---
security and HRO at bedside, pt is being aggressive trying to leave the room, cussing and being disrespectful.
[2024-02-25] MEDS: Haloperidol Lactate 5 MG/ML Vial IV (16:18)
[2024-02-25] MEDS: DiphenhydrAMINE 50 MG/ML Syringe IV (16:18)
[2024-02-25 17:00] VITALS: BP 106/74; PULSE 78; RESP 14; TEMP 36.6; O2SAT 98
[2024-02-25 18:00] VITALS: BP 110/72; PULSE 74; RESP 16; O2SAT 98
[2024-02-25 19:12] VITALS: BP 93/58; PULSE 97; RESP 18; TEMP 36.8; O2SAT 98
[2024-02-25 19:15] VITALS: BMI 29.5
[2024-02-25 21:49] VITALS: BP 116/81; PULSE 92; RESP 16; TEMP 37.1; O2SAT 96
[2024-02-25] MEDS: Lactated Ringers 1,000 ML 100 ML IV (22:11)
[2024-02-25] MEDS: Phenobarbital 32.4 MG Tablet 64.8 MG PO (22:51)
[2024-02-26] VITALS (7 sets, daily range): BP systolic 115–145; BP diastolic 78–93; PULSE 61–91; RESP 15–18; TEMP 36.6–37.1; O2SAT 92–100
[2024-02-26] MEDS: Phenobarbital 32.4 MG Tablet 64.8 MG PO ×6 (03:01→22:44)
[2024-02-26] MEDS: Folic Acid 1 MG Tablet PO (06:46)
[2024-02-26] MEDS: Thiamine Hydrochloride 100 MG Tablet PO (06:46)
[2024-02-26 07:54] LABS: Alcohol, Blood (Medical)-Serum < 3.0 mg/dL
[2024-02-26 08:08] LABS: Absolute Lymphocyte Count 2.47 X10^3/uL (0.83-4.51); Absolute Neutrophil Count 2.4 X10^3/uL (2.0-7.7); Basophil# 0.07 X10^3/uL; Basophil% 1.2 % (0-1); Eosinophil# 0.28 X10^3/uL; Eosinophils% 4.8 % (0-5); Hematocrit 41.8 % (40-54); Lymphocyte # 2.47 X10^3/ul (0.83-4.51); Lymphocyte % 42.2 % (19-41); Mean Corp Hgb Conc 33.5 g/dL (32-36); Mean Corpuscular Hgb 33.3 pg (27.0-32.0); Mean Corpuscular Volume 99.3 fL (80-94); Mean Platelet Vol. 10.3 fl (6.2-12.0); Monocyte% 10.2 % (0-10); NRBC Flagged by Analyzer 0 % (0-5); Neutrophil # 2.43 X10^3/uL (2.7-7.7); Neutrophil % 41.4 % (47-70); Platelet Count 185 K/mm3 (150-450); RBC Distribution Width CV 12.9 % (11.6-14.6); RBC Distribution Width SD 47.1 fl (35.1-43.9); Red Blood Count 4.21 M/mm3 (4.6-6.2); White Blood Count 5.9 K/mm3 (4.4-11.0)
[2024-02-26 08:29] LABS: ALB/GLOB Ratio 0.9 RATIO (0.9-2.4); AST(SGOT) 46 U/L (15-37); Alanine Aminotransfer ALT/SGPT 36 U/L (16-61); Albumin, Serum 3.1 g/dL (3.2-5.0); Alkaline Phosphatase 71 U/L (45-117); Anion Gap 5 (5-15); BUN 11 mg/dL (7-18); BUN/Creat Ratio 11.5 RATIO (10-20); Calcium,Total 8.4 mg/dL (8.5-10.1); Chloride 108 mmol/L (98-107); Creatinine, Serum 0.96 mg/dL (0.70-1.30); EST Glomerular Filtration Rate 86 mL/min (>60); Est Glom Filt Rate - Afr Amer 104 mL/min (>60); Estimated Creatinine Clearance 97.48 ml/min; Globulin 3.5 g/dL (2.2-4.2); Glucose 97 mg/dL (74-106); Potassium 3.8 mmol/L (3.5-5.1); Protein, Total 6.6 g/dL (6.4-8.2); Sodium Level 141 mmol/L (136-145)
[2024-02-26] MEDS: Enoxaparin 40 MG/0.4 ML Syringe SC (10:16)
[2024-02-26] MEDS: Sertraline 100 MG Tablet PO (10:17)
--- NOTE | 2024-02-26 11:12 | CASEMGMT ---
Social Work SW spoke with physician and pt is medically cleared to be evaluated by Crisis due to suicidal ideation. [facility] and [facility] made. Clinical information faxed. Crisis to evaluate pt today. JIAN Chris
[2024-02-26] MEDS: hydrOXYzine PAM 25 MG Capsule 50 MG PO (14:33)
[2024-02-26] MEDS: Loperamide 2 MG Capsule PO (14:33)
[2024-02-26] MEDS: Dicyclomine 10 MG Capsule 20 MG PO (14:33)
--- NOTE | 2024-02-26 15:23 | CASEMGMT ---
Social Work Myrtle from Crisis here and met with pt. PAULINO spoke with Myrtle who states pt does not need psychiatric placement and a safety plan was created. Pt no longer needs sitter. PAULINO spoke with Isha, addiction medicine who will assess pt tomorrow. PAULINO met with pt and completed [facility] assessment and provided resources. Pt states that he plans to attend an addiction IOP in [place] that is through [facility]. Addiction Therapist to see pt tomorrow. JIAN Chris
--- NOTE | 2024-02-26 16:27 | PCM.PN.HOSP ---
Reason for Visit Reason for Visit: Diagnoses Alcohol abuse, uncomplicated (02/25/24) Suicidal ideations (02/25/24) Objective Data Objective Data Vital Signs: Vital Signs Temp Pulse Resp BP Pulse Ox O2 Del Method 98.4 F 87 18 145/87 H 98 Room Air 02/26/24 14:27 02/26/24 14:27 02/26/24 14:27 02/26/24 14:27 02/26/24 14:27 02/26/24 14:27 Oxygen Delivery Method Room Air Weight: 206 lb Body Mass Index (BMI) 29.5 Intake & Output: Intake and Output for Last 24 Hours 02/24/24 02/25/24 02/26/24 23:59 23:59 23:59 Intake Total 300 / 700 1999 Balance 300 / 700 1999 Lab / Micro Data 02/26/24 06:19 02/26/24 06:19 Labs: Laboratory Results - last 24 hr 02/26/24 06:19: WBC 5.9, RBC 4.21 L, Hgb 14.0, Hct 41.8, MCV 99.3 H, MCH 33.3 H, MCHC 33.5, RDW Std Deviation 47.1 H, RDW Coeff of Shekhar 12.9, Plt Count 185, MPV 10.3, Immature Gran % (Auto) 0.200, Neut % (Auto) 41.4 L, Lymph % (Auto) 42.2 H, [place] % (Auto) 10.2 H, Eos % (Auto) 4.8, Baso % (Auto) 1.2 H, Absolute Neuts (auto) 2.4, Absolute Lymphs (auto) 2.47, Nucleated RBC % 0, Sodium 141, Potassium 3.8, Chloride 108 H, Carbon Dioxide 28.0, Anion Gap 5, BUN 11, Creatinine 0.96, Estim Creat Clear Calc 97.48, Est GFR (MDRD) Af Amer 104, Est GFR (MDRD) Non-Af 86, BUN/Creatinine Ratio 11.5, Glucose 97, Calcium 8.4 L, Total Bilirubin 1.00, AST 46 H, ALT 36, Alkaline Phosphatase 71, Total Protein 6.6, Albumin 3.1 L, Globulin 3.5, Albumin/Globulin Ratio 0.9, Ethyl Alcohol < 3.0 Physical Exam Narrative Seen and examined. Patient has history of chronic alcohol use and disorder. Denies any seizure or aspiration. Initially there was suspicion of suicidal ideation but patient was evaluated by crisis management mental health personnel. Denies chronic liver disease, RUQ pain or pressure or alcoholic hepatitis. General: Alert, Oriented x3, Cooperative HEENT: Atraumatic, PERRLA, EOMI, Normocephalic Oral: No Gingival or Mucosal Lesions/ Ulcerations Neck: Supple, No JVD, Negative Carotid Bruits Chest wall/Lungs: Air entry diminished in bilateral lung bases. No crepitation/rhonchi Cardiovascular: Regular rate, Regular Rhythm, Normal S1, Normal S2, No M/G/R Abdomen: Bowel Sounds Present, Soft, Non Tender, Non-Distended : No dysuria. No renal angle tenderness. No suprapubic tenderness. Extremities: No edema, Capillary Refill Less than 3 Seconds Skin: No rashes, No breakdown Musculoskeletal: No Tenderness to Palpation of Joints or Extremities. Mild tremors. Neurological: Cranial nerves II-XII grossly intact, DTR 2+/4. No acute focal neurological deficit. Psych/Mental Status: Normal Affect, Appropriate. Assessment & Plan Assessment/Plan (1) Alcohol abuse: (2) Suicidal ideation: PLAN: Plan This is 54-year-old gentleman admitted for acute alcohol withdrawal syndrome. Acute alcohol withdrawal syndrome with history of chronic alcohol use disorder with dependence tolerance, relapse: Patient has been admitted and has been evaluated by 180 spring encaser, Ananda. She told me that whenever she tries to send her to inpatient rehab, he does not go there, refuses and gets discharged to home. Patient did not related to the follow-up with the pulmonary team. He drinks 1/5 bottle of vodka every day. Patient is being admitted to MedSurg floor. Patient on phenobarbital based order set along with other adjunctive medications gabapentin, Bentyl, Vistaril, clonidine, Klonopin as needed for alcohol withdrawal symptom control. Patient is on thiamine and folate acid. CIWA monitor. imaging manager 180 consulted. Suicidal ideation: Patient stated that he said he wanted needle to inject for pain but did not want to hurt himself. Evaluated by crisis management team does not need inpatient transfer but may be outpatient follow-up - History of hepatitis C -Patient has been treated Tobacco abuse -Patient with ongoing tobacco abuse -Nicotine patch 21 mcg daily -Recommend cessation History of polysubstance abuse -IVDU with fentanyl and heroin remotely -Cocaine positive this admission Patient admitted that he will use crack cocaine. Intermittent THC use -Remote use patient states he is not currently using Depression/anxiety -Patient feels that his anxiety and depression are leading him to utilize alcohol more than typical -Will start Zoloft 100 mg daily DVT prophylaxis -Lovenox subcu as I do not anticipate patient to be extremely ambulatory CODE STATUS -Full code Charges/Coding Visit Charges Inpatient E&M: 23341 Subs Hosp L2
[2024-02-27 02:00] VITALS: BP 127/80; PULSE 74; RESP 16; TEMP 36.9; O2SAT 93
[2024-02-27] MEDS: Phenobarbital 32.4 MG Tablet 64.8 MG PO ×3 (02:33→10:20)
[2024-02-27 08:17] VITALS: O2SAT 96
[2024-02-27 10:00] VITALS: PULSE 100
[2024-02-27] MEDS: Thiamine Hydrochloride 100 MG Tablet PO (10:20)
[2024-02-27] MEDS: Folic Acid 1 MG Tablet PO (10:20)
[2024-02-27] MEDS: Sertraline 100 MG Tablet PO (10:20)
[2024-02-27 10:23] VITALS: BP 144/100; PULSE 100; RESP 18; TEMP 36.7; O2SAT 96
--- NOTE | 2024-02-27 10:48 | ADDICTION ---
This freelance writer met with PT to conduct ASAM, MSE, AUDIT, DUDIT assessments and to plan for d/c. PT A+Ox4 and participated actively. All assessments completed. PT plans to f/u with intensive outpatient treatment services at [facility]. Patient identifies his behaviors and recognizes that he struggles with emotional regulation and admits to continuous crack/cocaine use. Pt has ambivalence with clinicians inpatient recommendation. We discussed his frequent [facility] admissions as well as his repeated AMA's. We correlated this with his SO continuing to use, his struggle with emotional regulation and his readiness for change.
--- NOTE | 2024-02-27 14:30 | DCINST_ITS ---
Discharge Instructions Diet Discharge Diet: No restrictions Activity Discharge Activity: Return to Normal Activity Weight Bearing Status: Weight bearing as tolerated Dressing / Incision Call your doctor if you observe: Fever of 101 or Higher, Coldness, Increased Pain, Numbness or Tingling, Change in Color, Inability to urinate, Inability to have a bowel movement, Shortness of breath, Dizziness, Fainting spells, Swelling in the ankles, Chest pain, Prolonged hiccupping, Increased palpitations (irregular heartbeat) and Calf discomfort Follow Up Care When: IN 2 WEEKS Test Results: Test results from this visit will be discussed in further detail at your follow- up appointment, if applicable. Discharge Plan Admission Admit Date/Time: 02/25/24 15:06 Primary Reason for Your Visit: Acute alcohol withdrawal syndrome Attending Provider: Jose L Pineda Primary Care Provider: Cha Hernandez Primary Consulting Providers: Shala Ortega Instructions Additional Instructions / Restrictions: Follow-up to 180. Discharge Orders/Prescriptions Prescriptions: New folic acid 1 mg Tablet 1 mg PO DAILY@0800 30 Days Qty: 30 3RF thiamine HCl (vitamin B1) 100 mg Tablet 100 mg PO DAILYCM 30 Days Qty: 30 3RF nicotine 21 mg/24 hr Patch 24 Hour 21 mg transdermal DAILY 28 Days Qty: 28 0RF Continued bupropion HCl 300 mg tablet extended release 24 hr 300 mg PO DAILY Referrals / Follow Up: Care Physician,Cha Primary [Primary Care Provider] - NOT,DEFINED [Non-Staff] - Disposition Disposition (needs filled in before D/C Order can be placed): Home, Self Care
--- NOTE | 2024-02-27 14:33 | PCM.DC.SUM ---
Providers Date of Admission: 02/25/24 Date of Discharge: 02/27/24 Primary Care Physician: No Primary Care Phys Reason For Visit: ETOH DETOX/SI Diagnosis Discharge Diagnosis (1) Alcohol abuse: Status: Acute Code(s): F10.10 - Alcohol abuse, uncomplicated (2) Suicidal ideation: Status: Acute Code(s): R45.851 - Suicidal ideations Plan This is 54-year-old gentleman admitted for acute alcohol withdrawal syndrome. Acute alcohol withdrawal syndrome with history of chronic alcohol use disorder with dependence tolerance, relapse: Patient has been admitted and has been evaluated by 180 assistant case manager, Ananda. She told me that whenever she tries to send her to inpatient rehab, he does not go there, refuses and gets discharged to home. Patient did not related to the follow-up with the pulmonary team. He drinks 1/5 bottle of vodka every day. Patient is being admitted to Medr floor. Patient on phenobarbital based order set along with other adjunctive medications gabapentin, Bentyl, Vistaril, clonidine, Klonopin as needed for alcohol withdrawal symptom control. Patient is on thiamine and folate acid. CIWA monitor. contact center manager 180 consulted. 02/26: Patient is states that she wants to go home. Is feeling good advised not to drink alcohol or use crack cocaine or other polysubstance use Suicidal ideation: Patient stated that he said he wanted needle to inject for pain but did not want to hurt himself. Evaluated by crisis management team does not need inpatient transfer but may be outpatient follow-up Patient was related to crisis management and suicidal ideation was ruled out. Resources were given for outpatient follow-up. History of hepatitis C -Patient has been treated Tobacco abuse -Patient with ongoing tobacco abuse -Nicotine patch 21 mcg daily -Recommend cessation History of polysubstance abuse -IVDU with fentanyl and heroin remotely -Cocaine positive this admission Patient admitted that he will use crack cocaine. Intermittent THC use -Remote use patient states he is not currently using Depression/anxiety -Patient feels that his anxiety and depression are leading him to utilize alcohol more than typical -Will start Zoloft 100 mg daily DVT prophylaxis -Lovenox subcu as I do not anticipate patient to be extremely ambulatory CODE STATUS -Full code Discharge medication reconciliation done. Discharge follow-up instructions completed. Discharge process discussed with the patient and all questions were answered to patient's satisfaction. Follow with PCP in 1 to 2 weeks Total time spent, exact 35 minutes on discharge meds reconciliation, examination, coordination of care with nurses and ancillary staff, review of imaging and blood test and discussion with the patient on follow-up instructions. Medications at Discharge Home Medications bupropion HCl 300 mg 24 hr tablet, extended release 300 mg PO DAILY mood 08/05/22 folic acid 1 mg tablet 1 mg PO DAILY@0800 1 month #30 tabs 02/27/24 nicotine 21 mg/24 hr daily transdermal patch 21 mg transdermal DAILY 28 days #28 ea 02/27/24 thiamine HCl (vitamin B1) 100 mg tablet 100 mg PO DAILYCM 30 days #30 tabs 02/27/24 Physical Exam Narrative Seen and examined. Denies any acute symptoms. No tremors. Wants to go home. Physical exam General: Alert, Oriented x3, Cooperative HEENT: Atraumatic, PERRLA, EOMI, Normocephalic Oral: No Gingival or Mucosal Lesions/ Ulcerations Neck: Supple, No JVD, Negative Carotid Bruits Chest wall/Lungs: Air entry diminished in bilateral lung bases. No crepitation/rhonchi Cardiovascular: Regular rate, Regular Rhythm, Normal S1, Normal S2, No M/G/R Abdomen: Bowel Sounds Present, Soft, Non Tender, Non-Distended : No dysuria. No renal angle tenderness. No suprapubic tenderness. Extremities: No edema, Capillary Refill Less than 3 Seconds Skin: No rashes, No breakdown Musculoskeletal: No Tenderness to Palpation of Joints or Extremities. Mild tremors. Neurological: Cranial nerves II-XII grossly intact, DTR 2+/4. No acute focal neurological deficit. Psych/Mental Status: Normal Affect, Appropriate. Weight / BMI Weight Weight: 206 lb Body Mass Index (BMI) 29.5 ABG / Lab / Microbiology Data 02/26/24 06:19 02/26/24 06:19 D/C Instructions Discharge Diet: No restrictions Weight Bearing Status: Weight bearing as tolerated Call your doctor if you observe: Fever of 101 or Higher, Coldness, Increased Pain, Numbness or Tingling, Change in Color, Inability to urinate, Inability to have a bowel movement, Shortness of breath, Dizziness, Fainting spells, Swelling in the ankles, Chest pain, Prolonged hiccupping, Increased palpitations (irregular heartbeat) and Calf discomfort When: IN 2 WEEKS Meaningful Use Info Meaningful Use Meaningful Use Diagnoses (Choose all that apply): None applicable Ischemic Stroke Statin Dosing Therapy Reference: STATIN DOSE THERAPY REFERENCE: * Patients > 75 years receive moderate or high dose statin therapy. * Patients 75 years or YOUNGER should receive HIGH intensity statin dose unless contraindicated. You will be required to document reason for non-treatment if statin daily dose does not meet guidelines. HIGH DOSE STATIN THERAPY DAILY Atorvastatin > than or = to 40 mg Rosuvastatin > than or = to 20 mg Amlodipine + Atorvastatin > than or = to 2.5/40 mg Ezetimibe + Simvastatin 10/80 mg Simvastatin 80mg Discharge Plan Admission Admit Date/Time: 02/25/24 15:06 Primary Reason for Your Visit: Acute alcohol withdrawal syndrome Attending Provider: Jose L Pineda Primary Care Provider: Demetrio Physician,Cha Primary Consulting Providers: Shala Ortega Instructions Additional Instructions / Restrictions: Follow-up to 180. Discharge Orders/Prescriptions Prescriptions: New folic acid 1 mg Tablet 1 mg PO DAILY@0800 30 Days Qty: 30 3RF thiamine HCl (vitamin B1) 100 mg Tablet 100 mg PO DAILYCM 30 Days Qty: 30 3RF nicotine 21 mg/24 hr Patch 24 Hour 21 mg transdermal DAILY 28 Days Qty: 28 0RF Continued bupropion HCl 300 mg tablet extended release 24 hr 300 mg PO DAILY Referrals / Follow Up: Care Physician,No Primary [Primary Care Provider] - NOT,DEFINED [Non-Staff] - Disposition Disposition (needs filled in before D/C Order can be placed): Home, Self Care Charges/Coding Visit Charges Inpatient E&M: 34784 Disch Hosp >30min
[2024-02-27 15:03] VITALS: BP 155/97; PULSE 100; RESP 17; TEMP 37; O2SAT 100
== END 2024-02-27 15:24 | disposition home or self-care (01) | DRG 775 ==
LOC: ED 14:27 → MS3 18:42
PROVIDERS: Family Medicine; Admitting Provider Internal Medicine; Emergency Provider Surgery; Visit Provider Internal Medicine
DX: F10.139 Alcohol abuse with withdrawal, unspecified (principal); R45.851 Suicidal ideations; F32.A Depression, unspecified; F17.210 Nicotine dependence, cigarettes, uncomplicated; F41.9 Anxiety disorder, unspecified; E66.3 Overweight; Z79.899 Other long term (current) drug therapy; Z68.29 Body mass index [BMI] 29.0-29.9, adult; Y90.8 Blood alcohol level of 240 mg/100 ml or more
CPT/HCPCS: 36415; 80048; 80053; 80307; 82077; 85025; 94668; 99284; 99406; J7120; A4216; J2405